=== PATIENT | female | born 1940 | race Caucasian/White ===

== ENCOUNTER 2016-12-04 13:31 | Emergency (ER) | payer MEDICARE, OTHER ==
[~2016-12-04] VITALS: Ht 157.5 cm; Wt 117.9 kg
[~2016-12-04 13:31] MED LIST: ALLOPURINOL300 MG PO; ASACOL400 MG; ASPIRIN EC81 MG PO; ATENOLOL100 MG PO; ATENOLOL25 MG; ATENOLOL25 MG PO; CALCIUM CITRAT250 MG PO; CEPHALEXIN500 MG PO; CIPRODEX OTIC7.5 ML; CITRACAL + D M1 EACH PO; COZAAR100 MG PO; D-20002000 UNIT PO; DOCUSATE SODIU100 MG PO; FUROSEMIDE40 MG PO; GABAPENTIN300 MG PO; GENTAK5 ML; HYDROCODON-ACE1 EA10 PO; LASIX20 MG PO; LASIX40 MG PO; LOVASTATIN10 MG; LOVASTATIN20 MG PO; METFORMIN HCL500 M1 PO; METFORMIN HCL500 MG; MIRALAX17 GM PO; MORPHINE SULFAT15 MG PO; MS CONTIN15 MG PO; NEURONTIN100 MG; NEURONTIN300 MG PO; NORCO 5-325 TA1 EACH PO; NORCO 7.5-3251 EACH; NYSTOP60 GM TOP; OXYBUTYNIN CHLO15 MG PO; OXYBUTYNIN CHLOR5 M1 PO; OXYBUTYNIN CHLOR5 MG PO; OXYTROL1 EACH; POTASSIUM CHLO10 MEQ PO; PROZAC10 MG; PROZAC20 MG PO; REFRESH CLASSI1 EACH OPTH; SENOKOT8.6 MG PO; VITAMIN D1000 UNI1 PO; ZANAFLEX4 MG PO
[2016-12-04] MEDS ORDERED: LASIX20 MG PO (13:46)
[2016-12-04] MEDS ORDERED: NAPROSYN500 MG PO (15:45)
[2017-02-19] MEDS ORDERED: MIRALAX119 GM PO (11:38)
[2017-02-19] MEDS ORDERED: ASPIRIN81 MG PO (11:38)
[2017-02-19] MEDS ORDERED: NYSTATIN1 EAC1 PO (11:39)
== END 2016-12-04 14:01 | disposition home or self-care (01) ==
LOC: ED 13:31
DX: M25.511 Pain in right shoulder (principal); Z00.8 Encounter for other general examination

== ENCOUNTER 2016-12-04 14:37 | Emergency (ER) | payer MEDICARE, OTHER ==
[~2016-12-04] VITALS: Ht 157.5 cm; Wt 117.9 kg
[2016-12-04] MEDS ORDERED: NAPROSYN500 MG PO (15:45)
[2017-02-19] MEDS ORDERED: MIRALAX119 GM PO (11:38)
[2017-02-19] MEDS ORDERED: ASPIRIN81 MG PO (11:38)
[2017-02-19] MEDS ORDERED: NYSTATIN1 EAC1 PO (11:39)
== END 2016-12-04 16:13 | disposition home or self-care (01) ==
LOC: ED 14:37
DX: S43.401A Unspecified sprain of right shoulder joint, initial encounter (principal); D64.9 Anemia, unspecified; I48.91 Unspecified atrial fibrillation; K21.9 Gastro-esophageal reflux disease without esophagitis; Z90.49 Acquired absence of other specified parts of digestive tract; Z90.710 Acquired absence of both cervix and uterus; Z90.89 Acquired absence of other organs; Z88.0 Allergy status to penicillin; Z88.5 Allergy status to narcotic agent; Z88.8 Allergy status to other drugs, medicaments and biological substances; Z88.2 Allergy status to sulfonamides; Z79.82 Long term (current) use of aspirin; Z79.899 Other long term (current) drug therapy; X50.9XXA Other and unspecified overexertion or strenuous movements or postures, initial encounter
CPT/HCPCS: 73030; 99283

== ENCOUNTER 2016-12-21 14:09 | Emergency (ER) | payer MEDICARE, OTHER ==
[~2016-12-21] VITALS: Ht 157.5 cm; Wt 117.9 kg
[~2016-12-21 14:09] MED LIST changes: +NAPROSYN500 MG PO
[2016-12-21] MEDS ORDERED: LEVOFLOXACIN750 MG PO (16:14)
[2017-02-19] MEDS ORDERED: MIRALAX119 GM PO (11:38)
[2017-02-19] MEDS ORDERED: ASPIRIN81 MG PO (11:38)
[2017-02-19] MEDS ORDERED: NYSTATIN1 EAC1 PO (11:39)
== END 2016-12-21 16:40 | disposition home or self-care (01) ==
LOC: ED 14:09
DX: N39.0 Urinary tract infection, site not specified (principal); E87.6 Hypokalemia; D72.819 Decreased white blood cell count, unspecified; D69.6 Thrombocytopenia, unspecified; I48.91 Unspecified atrial fibrillation; D64.9 Anemia, unspecified; K21.9 Gastro-esophageal reflux disease without esophagitis; Z87.442 Personal history of urinary calculi; Z90.49 Acquired absence of other specified parts of digestive tract; Z90.710 Acquired absence of both cervix and uterus; Z90.89 Acquired absence of other organs; Z88.0 Allergy status to penicillin; Z88.5 Allergy status to narcotic agent; Z88.8 Allergy status to other drugs, medicaments and biological substances; Z88.2 Allergy status to sulfonamides; Z88.1 Allergy status to other antibiotic agents; Z79.899 Other long term (current) drug therapy; Z79.82 Long term (current) use of aspirin
CPT/HCPCS: 80053; 83605; 85025; 96374; 96375; 99284; J0696; J2405

== ENCOUNTER 2016-12-23 05:20 | Emergency (ER) | payer MEDICARE, OTHER ==
[~2016-12-23] VITALS: Ht 157.5 cm; Wt 118.1 kg
[~2016-12-23 05:20] MED LIST changes: +LEVOFLOXACIN750 MG PO
[2017-02-19] MEDS ORDERED: ASPIRIN81 MG PO (11:38)
[2017-02-19] MEDS ORDERED: MIRALAX119 GM PO (11:38)
[2017-02-19] MEDS ORDERED: NYSTATIN1 EAC1 PO (11:39)
== END 2016-12-23 09:00 | disposition home or self-care (01) ==
LOC: ED 05:20
DX: N39.0 Urinary tract infection, site not specified (principal); I48.91 Unspecified atrial fibrillation; D64.9 Anemia, unspecified; K21.9 Gastro-esophageal reflux disease without esophagitis; Z85.42 Personal history of malignant neoplasm of other parts of uterus; Z79.2 Long term (current) use of antibiotics; Z88.5 Allergy status to narcotic agent; Z88.8 Allergy status to other drugs, medicaments and biological substances; Z88.1 Allergy status to other antibiotic agents; Z79.899 Other long term (current) drug therapy; Z79.82 Long term (current) use of aspirin; Z87.891 Personal history of nicotine dependence; Z90.49 Acquired absence of other specified parts of digestive tract; Z88.0 Allergy status to penicillin; Z90.710 Acquired absence of both cervix and uterus; Z90.89 Acquired absence of other organs
CPT/HCPCS: 36415; 74176; 80053; 85025; 96360; 96361; 99284; J7030

== ENCOUNTER 2016-12-27 09:21 | Inpatient (IN) | payer MEDICARE, OTHER ==
[~2016-12-27] VITALS: Ht 157.5 cm; Wt 111.0 kg
--- NOTE | 2016-12-27 14:00 | NUR ---
PT ADMITTED VIA STREACHER AT THIS TIME, THREE PERSON TRANSFER, PT YELLED AT STAFF "YOU ARE GRUFF" STAFF DID NOT RESPOND TO PT AT THIS TIME. ADMITT PROCESS COMPLETED AND PT GIVEN WATER TO TAKE MEDICATIONS AND CALL LIGHT WITHIN REACH.
--- NOTE | 2016-12-27 15:00 | NUR ---
URINE SAMPLE SENT TO LAB
--- NOTE | 2016-12-27 15:31 | NUR ---
DR BAIN NOTIFED OF LOW URINE OUTPUT AND NO NEW ORDERS AT THIS TIME.
--- NOTE | 2016-12-27 15:52 | NUR ---
ADMITT PROCESS COMPLETED, PT CONTIOUES TO BE NEEDEY WITH MANY REQUEST EVEN WHEN ASKED "IS THERE ANYTHING I CAN GET BEFORE I LEAVE THE ROOM". PT CURRENT ISSUES IS SHE HAS A SORE THROAT AND WANTD SOMETHING TO SUCK ON. GAVE HARD CANDY AT THIS TIME AND SOME CHAP STICK. PT WAS OKAY WITH THESE ITEMS.
--- NOTE | 2016-12-27 16:19 | EKG ---
[facility] [address] [facility] [place] [address] Signed Sinus rhythm with premature atrial complexes Minimal voltage criteria for LVH, may be normal variant Prolonged QT Abnormal ECG When compared with ECG of 09-APR-2016 16:06, premature atrial complexes are now present AR interval has decreased QT has lengthened Confirmed by FIFI CANDELARIA MD ([id number]) on 12/27/2016 4:19:02 PM Electronically Signed By: FIFI CANDELARIA MD 12/27/16 1619 PATIENT NAME: DORA HILARIO Electrocardiogram DATE OF : 38 PHYSICIAN: FIFI CANDELARIA MD REPORT #: [id number] REPORT IS CONFIDENTIAL AND NOT TO BE RELEASED WITHOUT AUTHORIZATION
--- NOTE | 2016-12-27 16:38 | NUR ---
PT SLEEPING AT THIS TIME, SPO2 91% ON ROOM AIR, PT APPEARS TO BE COMFORTABLE AT THIS TIME. URINE OUTPUT IS LOW DR DOUGLAS NOTIFIED AND NO NEW ORDERS.
--- NOTE | 2016-12-27 16:49 | NUR ---
PT AWAKE AT THIS TIME, ORDERED DINNER AND IS PLANNING ON SLEEPING TILL DINNER COMES. THE SECOND 100MLS OF MAG 3 GRAM IS INFUSING AT THIS TIME. PT IS TOLERATING THIS WELL./
--- NOTE | 2016-12-27 18:29 | NUR ---
PT AT DINNER FAIR THIS EVENING. URINE OUTPUT PICKING UP SOME THIS PAST HOUR. UA SAMPLE SENT TO LAB. PT CONTIOUES TO BE UNHAPPY WITH HOW THE BED IS AND HOW SHE CAN'T MOVE VERY WELL. THEN IN THE NEXT BREATH SHE STATES "I NEED TO HAVE MY SHOULDER INJUCTED TO FEEL BETTER" TWO WARM BLANKETS GIVEN ALSO AT THIS TIME. ALSO PT SISTER CALLED AND IT WAS TRANSFERED INTO THE PT ROOM.
--- NOTE | 2016-12-27 18:51 | NUR ---
PT C/O BEING COLD HEAT IN HER ROOM TURNED UP AND WARM BLAKETS GIVEN TO PT.
--- NOTE | 2016-12-27 19:20 | NUR ---
DR CANDELARIA NOTIFIED OF URINE OUT PUT NO NEW ORDERS AT THIS TIME.
--- NOTE | 2016-12-27 19:35 | NUR ---
PT CALLS TO ASK TO BE CLEANED, HAS A SMALL AMOUNT OF LOOSE STOOL AROUND RECTUM, CLEANED AND ATTENDS PLACED. PT ALERT AND ORIENTED. REPOSITIONED.
--- NOTE | 2016-12-27 20:57 | NUR ---
LAB IN TO DRAW
--- NOTE | 2016-12-27 21:31 | NUR ---
RT IN TO WORK WITH PT WITH IS AND DOROTA
--- NOTE | 2016-12-27 21:49 | NUR ---
CALL TO DR CANDELARIA TO UPDATE REGARDING URINE OUTPUT AND RECENT LAB RESULTS, NO ORDERS AT THIS TIME, WILL CONTINUE TO MONITOR. PT AWAKE AND WATCHING TV IN BED.
--- NOTE | 2016-12-27 23:00 | NUR ---
PT CALLS TO STATE SHE WAS INC STOOL AND NEEDS CLEANING, BUT NO STOOL NOTED. REPOSITIONED UP IN BED, SNACK GIVEN PER REQUEST.
--- NOTE | 2016-12-28 00:44 | NUR ---
PT ASLEEP, AWAKENS EASILY FOR ASESSMENT. DENIES PAIN OR NEEDS AT THIS TIME. PO METOPROLOL GIVEN. PT ASKING ABOUT PLAN FOR THE DAY, QUESTIONS ANSWERED, PT BACK TO SLEEP EASILY. SLEEPING ON HER BACK, SNORING AT TIMES WITH BRIEF PERIODS OF DESATS DOWN TO 85%. WILL CONTINUE TO MONITOR. URINE OUTPUT HAS BEEN ABOUT 15-20 ML/HR FOR THE LAST FIVE HOURS. IVF CONTINUE TO INFUSE AT 150 ML/HR.
--- NOTE | 2016-12-28 02:30 | NUR ---
PT CALLS WITH WANTING TO BE CLEANED UP AGAIN, NO STOOL SEEN. PT REPOSITIONED, BACK TO SLEEP. URINE OUTPUT REMAINS ABOUT 25ML/HR.
--- NOTE | 2016-12-28 03:50 | NUR ---
PT CALLS FOR HELP REPOSITIONING, DENIES NEEDS AT THIS TIME. ASSESSMENT DONE.
--- NOTE | 2016-12-28 05:25 | NUR ---
PT CONTINUES TO SLEEP, HR 60'S.
--- NOTE | 2016-12-28 05:45 | NUR ---
LAB IN TO DRAW
--- NOTE | 2016-12-28 07:52 | NUR ---
PT SLEEPING, AWAKENS TO VOICE, DR. CANDELARIA IN TO ASSESS PT. PT UP TO BSC WITH 2 PERSON ASSIST AND PT USED WALKER TO HELP KEEP PT STABLE. PT HAD LG THICK BROWN STOOL. PT TRANSFERRED TO MAUREEN CHAIR WITH ASSIST BUT UNABLE TO MOVE PT BACK IN CHAIR AND PT UNABLE TO HELP MOVE HERSELF. SLING IN PLACE AND ATTEMPTED TO MOVE PT TOWARD THE BACK OF MAUREEN CHAIR BUT PT STATES BEING UNCOMFORTABLE.
--- NOTE | 2016-12-28 09:05 | NUR ---
INNER TUBE CUTTER HERE TO HELP TRANSFER PT TO WHEEL CHAIR. PT ABLE TO STAND WITH 3 PERON ASSIST AND USED WALKER TO STEADY HERSELF, PT TRANSFERRED TO WHEEL CHAIR WITHOUT PROBLEMS. ASSESSMENT COMPLETED, PT C/O SHOULDER PAIN. WARM BLANKET AROUND SHOULDERS, PT EATING BREAKFAST WITH MINIMAL DIFFICULTY.
--- NOTE | 2016-12-28 10:16 | NUR ---
MED REC COMPLETE
[2016-12-28] MEDS ORDERED: POTASSIUM CHLO10 MEQ PO (10:20)
--- NOTE | 2016-12-28 11:31 | NUR ---
PT RETURNED TO BED WITH 3 PERSON ASSIST. PT USING IS AND VIBRA PEP.
--- NOTE | 2016-12-28 11:57 | NUR ---
DR. CANDELARIA NOTIFIED OF DECREASE IN URINE OUTPUT IVF RUNNING AT 150/HR NOW. PHYSICAL THERAPY HERE TO TALK TO PT JEREMIAH WORKING WITH PT.
--- NOTE | 2016-12-28 12:54 | NUR ---
PT SLEEPING AT THIS TIME, REFUSED LUNCH BUT WILL EAT LATER. ASSESSMENT COMPLETED, PT DENIES PAIN AT THIS TIME, STATES SHOULDERS FEEL BETTER AFTER WARM BLANKETS APPLIED.
--- NOTE | 2016-12-28 14:32 | NUR ---
I/O'S COMPLETED. PT REMAINS ASLEEP WITH REU, SATS 95% ON RA.
--- NOTE | 2016-12-28 15:23 | NUR ---
PT AWAKE, UP TO WHEEL CHAIR WITH 3 PERSON ASSIST. PT ATE APPROX 40% OF LUNCH. RESTING IN WHEEL CHAIR WATCHING TV.
--- NOTE | 2016-12-28 16:55 | NUR ---
PT STATES "I THINK MY BOWELS MOVED". PT INCONT OF LIQ STOOL, MOVED WHEEL CHAIR TO BATHROOM AND PT STOOD WHILE STEADYING SELF WITH BARS ON THE WALL. WHEEL CHAIR CLEANED AND CHUX REPLACED, PT RETURNED TO WHEEL CHAIR AND IS WATCHING TV, REQUESTING MORE DIET COLA.
--- NOTE | 2016-12-28 18:01 | NUR ---
PT RETURNED TO BED WITH 2 PERSON ASSIST, RESTING WITH HOB ELEVATED. NO C/O AT THIS TIME.
--- NOTE | 2016-12-28 20:34 | NUR ---
PT'S UO MARGINAL, SPORADIC PER DAY SHIFT, PHYSICIAN AWARE PER REPORT. UO 40 ML IN ONE HOUR.
--- NOTE | 2016-12-29 02:40 | NUR ---
PT'S UO MARGINAL, DR. CANDELARIA ALERTED ON DAY SHIFT.
--- NOTE | 2016-12-29 08:06 | NUR ---
DR. CANDELARIA IN TO ASSESS PT AND TALK TO PT CONCERNING HER PLAN OF CARE.
--- NOTE | 2016-12-29 11:17 | NUR ---
PT ATE 100% OF BREAKFAST WHILE UP IN WHEEL CHAIR. PT RESTING WITH EYES CLOSED. AWAKENS TO VOICE AND DC INSTRUCTIONS GIVEN, PT STATES UNDERSTANDING. PT WILL CALL DR. YOUNG'S OFFICE ON FRIDAY TO MAKE FOLLOW UP APPT.
[2017-02-19] MEDS ORDERED: ASPIRIN81 MG PO (11:38)
[2017-02-19] MEDS ORDERED: MIRALAX119 GM PO (11:38)
[2017-02-19] MEDS ORDERED: NYSTATIN1 EAC1 PO (11:39)
== END 2016-12-29 12:50 | disposition home or self-care (01) | DRG 682 ==
LOC: ED 09:21 → CCU 13:35
PROVIDERS: ADMIT Internal Medicine
DX: N17.9 Acute kidney failure, unspecified (principal); G93.41 Metabolic encephalopathy; E87.2 Acidosis; D61.818 Other pancytopenia; Z68.42 Body mass index [BMI] 45.0-49.9, adult; E86.0 Dehydration; I48.0 Paroxysmal atrial fibrillation; E11.9 Type 2 diabetes mellitus without complications; D69.6 Thrombocytopenia, unspecified; G89.29 Other chronic pain; E87.5 Hyperkalemia; E78.5 Hyperlipidemia, unspecified; E87.6 Hypokalemia; B37.9 Candidiasis, unspecified; I12.9 Hypertensive chronic kidney disease with stage 1 through stage 4 chronic kidney disease, or unspecified chronic kidney disease; N18.3 Chronic kidney disease, stage 3 (moderate); K74.69 Other cirrhosis of liver; E83.42 Hypomagnesemia; E83.51 Hypocalcemia; N30.90 Cystitis, unspecified without hematuria; F39 Unspecified mood [affective] disorder; K75.81 Nonalcoholic steatohepatitis (NASH); E66.01 Morbid (severe) obesity due to excess calories; Z86.718 Personal history of other venous thrombosis and embolism; Z79.82 Long term (current) use of aspirin; Z88.0 Allergy status to penicillin; Z88.6 Allergy status to analgesic agent; Z87.891 Personal history of nicotine dependence; Z85.42 Personal history of malignant neoplasm of other parts of uterus
CPT/HCPCS: 36415; 74022; 80048; 80053; 81001; 81256; 82140; 82306; 82570; 83605; 83690; 83735; 84300; 84484; 84540; 85025; 86704; 86706; 86709; 86803; 87340; 93005; 93010; 94668; 94761; 97163; J0696; J2405; J2550; J3475; J7120

== ENCOUNTER 2017-02-05 10:59 | Day surgery (SDC) | payer MEDICARE, OTHER ==
[~2017-02-05] VITALS: Ht 157.5 cm; Wt 113.4 kg
--- NOTE | 2017-02-05 13:20 | NUR ---
02/05/17 1320 Saira Bauman 1257 O2 DECREASED TO 2L, PT O2 SAT 100%. 1311 PT O2 SAT 100%, O2 REMOVED.
--- NOTE | 2017-02-07 10:53 | OR ---
[facility] [address] [place] [address] Signed DATE OF OPERATION: 02/05/2017 SURGEON: Trinity Grace MD PROCEDURE: Right posterior iliac crest bone marrow biopsy and aspirate. DESCRIPTION OF PROCEDURE: After explaining the risks and benefits of bone marrow biopsy and aspirate under conscious sedation and obtaining informed written consent, the patient was taken to the endoscopy suite, where a time-out was taken and the patient and the procedure were correctly identified. She was placed in the left lateral decubitus position. Conscious sedation was supplied by JOSUÉ Bermudez, with 100 mcg of intravenous fentanyl and 3 mg of intravenous Versed. The right posterior iliac crest was prepped and draped in the usual sterile manner and a right posterior iliac crest bone marrow biopsy and aspirate were obtained without adverse effects. Trinity Grace MD RCQ/MODL /[id number] cc: Benjamín Cristina MD Electronically Signed By: TRINITY GRACE MD 02/07/17 1053 PATIENT NAME: DORA HILARIO OPERATIVE REPORT DATE OF : 38 PHYSICIAN: TRINITY GRACE MD REPORT #: [id number] REPORT IS CONFIDENTIAL AND NOT TO BE RELEASED WITHOUT AUTHORIZATION
[2017-02-19] MEDS ORDERED: MIRALAX119 GM PO (11:38)
[2017-02-19] MEDS ORDERED: ASPIRIN81 MG PO (11:38)
[2017-02-19] MEDS ORDERED: NYSTATIN1 EAC1 PO (11:39)
== END 2017-02-05 13:44 | disposition home or self-care (01) ==
LOC: OPS 10:59 → DS 10:59 → OPS 12:00
PROVIDERS: Specialist
PROC: 07DR3ZX Extraction of Iliac Bone Marrow, Percutaneous Approach, Diagnostic (ICD-10-PCS; principal; 2017-02-05 12:00)
DX: D61.818 Other pancytopenia (principal); I12.9 Hypertensive chronic kidney disease with stage 1 through stage 4 chronic kidney disease, or unspecified chronic kidney disease; N18.3 Chronic kidney disease, stage 3 (moderate); E66.01 Morbid (severe) obesity due to excess calories; F32.9 Major depressive disorder, single episode, unspecified; F41.9 Anxiety disorder, unspecified; E78.5 Hyperlipidemia, unspecified; I25.10 Atherosclerotic heart disease of native coronary artery without angina pectoris; R32 Unspecified urinary incontinence; Z68.41 Body mass index [BMI] 40.0-44.9, adult; Z90.49 Acquired absence of other specified parts of digestive tract; Z96.651 Presence of right artificial knee joint; Z98.890 Other specified postprocedural states; Z87.891 Personal history of nicotine dependence; Z88.0 Allergy status to penicillin; Z88.1 Allergy status to other antibiotic agents; Z88.8 Allergy status to other drugs, medicaments and biological substances; Z79.899 Other long term (current) drug therapy
CPT/HCPCS: 36415; 82607; 82728; 82746; 83540; 84238; 84466; 85025; 99152; 99153; J2250; J3010; J7040

== ENCOUNTER 2017-10-14 00:03 | Emergency (ER) | payer MEDICARE, OTHER ==
[~2017-10-14] VITALS: Ht 157.5 cm; Wt 117.5 kg
[~2017-10-14 00:03] MED LIST changes: +ASPIRIN81 MG PO; +MIRALAX119 GM PO; +NYSTATIN1 EAC1 PO
[2017-10-14] MEDS ORDERED: SPIRONOLACTONE25 MG PO ×2 (18:30)
[2017-10-14] MEDS ORDERED: MAG-OXIDE400 MG PO ×2 (18:32)
[2017-10-14] MEDS ORDERED: CHOLESTYRAMINE P4 GM PO ×2 (18:34)
[2017-10-14] MEDS ORDERED: FOLIC ACID1 MG PO ×2 (18:36)
[2017-10-14] MEDS ORDERED: ATENOLOL50 MG PO ×2 (18:37)
[2017-10-14] MEDS ORDERED: OYSTER SHELL C500 MG PO ×2 (18:38)
[2017-10-14] MEDS ORDERED: FLUTICASONE PRO16 GM NAS (18:39)
[2017-10-14] MEDS ORDERED: KETOCONAZOLE15 GM TOP ×2 (19:18)
--- NOTE | 2017-10-14 20:26 | EKG ---
[facility] [address] [facility] [place] [address] Signed Sinus rhythm with sinus arrhythmia with 1st degree AV block Cannot rule out Anterior infarct , age undetermined Abnormal ECG When compared with ECG of 27-DEC-2016 11:14, premature atrial complexes are no longer present [place] interval has increased QT has shortened Confirmed by TINA BAIN MD ([id number]) on 10/14/2017 8:26:06 PM Electronically Signed By: TINA BAIN MD 10/14/172025 PATIENT NAME: DORA HILARIO Electrocardiogram DATE OF : 38 PHYSICIAN: TINA BAIN MD REPORT #: [id number] REPORT IS CONFIDENTIAL AND NOT TO BE RELEASED WITHOUT AUTHORIZATION
[2017-10-15] MEDS ORDERED: LASIX20 MG PO ×4 (13:42→13:50)
[2017-10-15] MEDS ORDERED: MAG-OXIDE400 MG PO ×2 (13:43)
[2017-10-15] MEDS ORDERED: D-20002000 UNIT PO ×2 (13:46)
[2017-10-15] MEDS ORDERED: NYSTATIN15 G2 TOP ×2 (13:47)
[2017-10-15] MEDS ORDERED: MIRALAX17 GM PO ×2 (13:48)
[2017-10-15] MEDS ORDERED: CALCI-CHEW500 MG PO ×2 (13:48)
[2017-10-15] MEDS ORDERED: B-121000 MC2 PO ×2 (13:49)
== END 2017-10-14 02:30 | disposition home or self-care (01) ==
LOC: ED 00:03
DX: M25.512 Pain in left shoulder (principal); D64.9 Anemia, unspecified; I48.91 Unspecified atrial fibrillation; K21.9 Gastro-esophageal reflux disease without esophagitis; Z87.891 Personal history of nicotine dependence; Z88.0 Allergy status to penicillin; Z88.5 Allergy status to narcotic agent; Z88.8 Allergy status to other drugs, medicaments and biological substances; Z88.2 Allergy status to sulfonamides; Z88.1 Allergy status to other antibiotic agents; Z79.899 Other long term (current) drug therapy
CPT/HCPCS: 71045; 73030; 80053; 83735; 84484; 85025; 85610; 85730; 93005; 93010; 99284

== ENCOUNTER 2017-10-14 09:44 | Observation (INO) | payer MEDICARE, OTHER ==
[~2017-10-14] VITALS: Ht 157.5 cm; Wt 109.9 kg
--- NOTE | 2017-10-14 10:57 | NUR ---
PT IS A DIRECT ADMIT FROM HOME PER DR. BAIN. ASSESSMENT COMPLETED AND IV SALINE LOCKED PLACED. DR BAIN INTO SEE PT AT THIS TIME.
--- NOTE | 2017-10-14 11:16 | NUR ---
THIS SUPERINTENDENT HOUSE SAT PATIENT UP IN BED, ICE WATER GIVEN, CALL LIGHT IN REACH
--- NOTE | 2017-10-14 13:10 | NUR ---
2 PERSON ASSIST RFOM COMMODE TO BED WITH JOSUÉ IBANEZ. PATIENT WAS VERY UNSTEADY ON HER FEET, COULD PROBABLY USE 3 PERSON ASSIST. CALL LIGHT IN REACH
--- NOTE | 2017-10-14 13:19 | NUR ---
pt up to bedside commode, voided about 100mls, sample sent to lab also . PT IS A TWO PERSON MAX ASSISTANCE WITH ACTIVITY.
--- NOTE | 2017-10-14 13:57 | NUR ---
VITALS AND I/OS CHARTED. WARM BLANKET GIVEN CALL LIGHT IN REACH
--- NOTE | 2017-10-14 14:16 | NUR ---
ASPERCREAM APPLIED TO LEFT SHPULD TO ELBOW. PT LYING IN BED WATCHING TV. TALKED WITH [facility]URS[facility] AND ONE OF THEM WILL COME IN ON FRIDAY TO LOOK AT HER AND SEE WHAT WE CAN DO WITH PT SKIN TEARS AND BRUSING, SCABS.
--- NOTE | 2017-10-14 15:01 | NUR ---
WARM BLANKET GIVEN AND THIS TURNED PATIENTS ROOM TEMP UP A BIT PER PATIENTS REQUEST CALL LIGHT IN REACH
--- NOTE | 2017-10-14 16:55 | NUR ---
PT IS SLEEPING IN THE BED AT THIS TIME. IV INFUSING AT THIS TIME.
--- NOTE | 2017-10-14 17:41 | NUR ---
VITALS AND I/OS CHARTED. CALL LIGHT IN REACH
--- NOTE | 2017-10-14 17:52 | NUR ---
WAI CHANGED. CALLLIGHT IN [facility]. LAB IN FOR BLOOD DRAW
--- NOTE | 2017-10-14 18:04 | NUR ---
pt finished with dinner lab present for sample to be obtained and was completed. pt was incontent of urine, complete line change also at this time. bed in low position, call light within reach and two side rails up.
[2017-10-14] MEDS ORDERED: SPIRONOLACTONE25 MG PO ×2 (18:30)
[2017-10-14] MEDS ORDERED: MAG-OXIDE400 MG PO ×2 (18:32)
[2017-10-14] MEDS ORDERED: CHOLESTYRAMINE P4 GM PO ×2 (18:34)
[2017-10-14] MEDS ORDERED: FOLIC ACID1 MG PO ×2 (18:36)
[2017-10-14] MEDS ORDERED: ATENOLOL50 MG PO ×2 (18:37)
[2017-10-14] MEDS ORDERED: OYSTER SHELL C500 MG PO ×2 (18:38)
[2017-10-14] MEDS ORDERED: FLUTICASONE PRO16 GM NAS (18:39)
--- NOTE | 2017-10-14 18:42 | NUR ---
PT REMAINS IN BED, WATCHING TV, CALL LIGHT WITHIN REACH AND HAS THREE WARM BLANKETS. ALSO ROOM TEMP INCREASED TO 75. PT RECEIVED PHONE CALL AND PHONE HANDED TO PT.
--- NOTE | 2017-10-14 19:02 | NUR ---
MED REC COMPLETE
--- NOTE | 2017-10-14 19:10 | NUR ---
IN ROOM FOR REPORT, PT IS AWAKE IN BED READING A BOOK. SHE DENIES NEEDS AT THIS TIME. CALL LIGHT IS WITHIN REACH.
[2017-10-14] MEDS ORDERED: KETOCONAZOLE15 GM TOP ×2 (19:18)
--- NOTE | 2017-10-14 20:55 | NUR ---
IN ROOM TO ADMINISTER MEDS AND ASSESS PT. PT STATES SHE IS USED TO CHRONIC PAIN AND HAS PAIN IN HER SHOULDER. APPLIED ASPERCREM TO SHOULDER AND ARM. SHE HAS FRESH WATER AT BEDSIDE. PT DENIES FURTHER NEEDS.
--- NOTE | 2017-10-14 22:31 | NUR ---
PT IS RESTING WITH EYES CLOSED, RESPIRATIONS ARE EVEN AND NONLABORED. CALL LIGHT IS WITHIN REACH.
--- NOTE | 2017-10-14 23:30 | NUR ---
PT CALLED ABOUT SHOULDER PAIN, GAVE HER A HEAT PACK TO TRY. SHE DENIES FURTHER NEEDS AT THIS TIME.
--- NOTE | 2017-10-15 01:15 | NUR ---
PT IS RESTING WITH EYES CLOSED, RESPIRATIONS ARE EVEN AND NONLABORED.
--- NOTE | 2017-10-15 02:32 | NUR ---
WOKE PT TO CHANGE ATTENDS. SHE COMPLAINS THAT HER PAIN IS WORSE NOW. ADMINISTERED ASPERCREME AND REPOSITIONED PT. PT DENIES FURTHER NEEDS. CALL LIGHT IS WITHIN REACH.
--- NOTE | 2017-10-15 04:15 | NUR ---
PT IS RESTING WITH EYES CLOSED, RESPIRATIONS ARE EVEN AND NONLABORED. CALL LIGHT IS WITHIN REACH.
--- NOTE | 2017-10-15 05:00 | NUR ---
PT IS RESTING WITH EYES CLOSED, RESPIRATIONS ARE EVEN AND NONLABORED. CALL LIGHT IS WITHIN REACH.
--- NOTE | 2017-10-15 05:29 | NUR ---
PT IN ON A CARDIAC DIET. SHE WAS INCONTINENT IN THE BED AND HAS ATTENDS IN PLACE. SHE IS A STEFFEN LIFT AND USES A WHEELCHAIR AT [facility] WHERE SHE LIVES. HER IV FLUID RATE WAS CHANGED FROM 100MLS TO 125MLS/HR. SHE HAS MULTIPLE AREAS OF BRUISING AND SKIN BREAKDOWN. THERE IS A WOUND CONSULT ORDERED.
--- NOTE | 2017-10-15 06:08 | NUR ---
CHANGED PT'S ATTENDS AND BROUGHT HER A NEW WARM PACK TO HELP WITH SHOULDER PAIN. PT REQUESTED NOT TO BE BOTHERED AT SHIFT CHANGE AND DOES NOT WANT BREAKFAST EARLY, KITCHEN WAS NOTIFIED. PT DENIES FURTHER NEEDS.
--- NOTE | 2017-10-15 08:21 | NUR ---
PATIENT RESTING IN BED AT THIS TIME, RN REQUESTS THAT PATIENT IS NOT AWOKEN OR BOTHERED. CALL LIGHT IN REACH. NO OTHER NEEDS AT THIS TIME.
--- NOTE | 2017-10-15 10:26 | NUR ---
PATIENT RESTING IN BED, THIS TURN SEWER AND RN ASSISTED TO CHANGE PATIENT'S ATTENDS. PATIENT HAD LARGE URINARY INCONTINENCE, PERICARE AND SKINCARE PERFORMED. PATIENT GIVEN BED BATH. CALL LIGHT IN REACH. NO OTHER NEEDS AT THIS TIME.
--- NOTE | 2017-10-15 11:05 | NUR ---
NOTIFIED PROVIDER OF HR 55, HELD BETA TALISHA, PROVIDER STATED DRUG SHOULD BE GIVEN DUE TO AFIB, ADMINISTERED PER ORDERS, WILL CONTINUE TO MONITOR. GIVEN PT BED BATH WITH X3 ASSIST, PT INCONTINENT OF BOWEL AND BLADDER. MINIMAL DRAINAGE TO DRESSINGS ON LEFT UPPER EXTREMETY.
--- NOTE | 2017-10-15 12:05 | NUR ---
PT RESTING IN BED, PT STATES THAT THE ASPERCREME WAS HELPFUL IN MANAGING HER PAIN TO HER RIGHT SHOULDER. PROVIDED ADDITIONAL BLANKETS. PT RESTING COMFORTABLY IN BED. WILL CONTINUE TO MONITOR.
--- NOTE | 2017-10-15 13:10 | NUR ---
LE 1230: ORDER FOR WOUND CONSULT RECEIVED. PATIENT IS FOUND LAYING IN BED AND IS NOTED TO HAVE MULTIPLE PURPLE BRUISES THROUGHOUT HER BODY. PATIENT REPORTS THAT "EVERYTHING BRUISES ME". PATIENT ALSO REPORTS HER RIGHT POSTERIOR THIGH AND LEFT ELBOW ARE THE AREAS WHERE WOUNDS EXIST AND SHE IS CONCERNED. PATIENT REPORTS IF SHE BUMPS HER SKIN AT ALL, IT RESULTS IN A BRUISE. RIGHT POSTERIOR THIGH IS NOTED TO HAVE DRY GAUZE AND TAPE COVERING A DARK SPOT. THE SPOT APPEARS IN TACT AND NO DRAINAGE IS NOTED. DRESSING IS CAREFULLY REMOVED AND PATIENT REPORTS AN INCREASE IN PAIN WITH THE DRESSING REMOVAL. LEFT ELBOW IS NOTED TO CONTAIN 2 BANDAIDS. BANDAIDS ARE CAREFULLY REMOVED AND THERE APPEARS TO BE 2 HEALED NON-DRAINING SKIN TEARS UNDER THE BANDAIDS. NO DRESSING APPLICATION IS RECOMMENDED AT THIS TIME GIVEN THE HEALED NATURE OF THE WOUNDS. IN THE EVENT THE RIGHT POSTERIOR THIGH WOUND BEGINS TO DRAIN AGAIN, AN ALLEVYN DRESSING APPLICATION IS RECOMMENDED. CALL LIGHT IS W/IN REACH. PATIENT IS ON THE PHONE WHEN I EXIT THE ROOM.
[2017-10-15] MEDS ORDERED: LASIX20 MG PO ×4 (13:42→13:50)
[2017-10-15] MEDS ORDERED: MAG-OXIDE400 MG PO ×2 (13:43)
[2017-10-15] MEDS ORDERED: D-20002000 UNIT PO ×2 (13:46)
[2017-10-15] MEDS ORDERED: NYSTATIN15 G2 TOP ×2 (13:47)
[2017-10-15] MEDS ORDERED: CALCI-CHEW500 MG PO ×2 (13:48)
[2017-10-15] MEDS ORDERED: MIRALAX17 GM PO ×2 (13:48)
[2017-10-15] MEDS ORDERED: B-121000 MC2 PO ×2 (13:49)
== END 2017-10-15 14:44 | disposition home or self-care (01) ==
LOC: MS 09:44
PROVIDERS: ADMIT Internal Medicine
DX: N17.9 Acute kidney failure, unspecified (principal); N18.3 Chronic kidney disease, stage 3 (moderate); E87.5 Hyperkalemia; E83.42 Hypomagnesemia; T50.1X5A Adverse effect of loop [high-ceiling] diuretics, initial encounter; K74.60 Unspecified cirrhosis of liver; K76.0 Fatty (change of) liver, not elsewhere classified; E53.8 Deficiency of other specified B group vitamins; F41.8 Other specified anxiety disorders; I48.0 Paroxysmal atrial fibrillation; M54.9 Dorsalgia, unspecified; G89.29 Other chronic pain; E79.0 Hyperuricemia without signs of inflammatory arthritis and tophaceous disease; E78.5 Hyperlipidemia, unspecified; E66.01 Morbid (severe) obesity due to excess calories; Z68.41 Body mass index [BMI] 40.0-44.9, adult; Z66 Do not resuscitate; Z79.899 Other long term (current) drug therapy; Z88.1 Allergy status to other antibiotic agents; Z88.5 Allergy status to narcotic agent; Z88.0 Allergy status to penicillin; Z88.2 Allergy status to sulfonamides; Z88.8 Allergy status to other drugs, medicaments and biological substances
CPT/HCPCS: 36415; 80069; 82570; 83735; 84300; 84540; 96361; 96365; 96366; 99211; G0378; G0379; J3475; J7030

== ENCOUNTER 2017-12-03 17:04 | Inpatient (IN) | payer MEDICARE, OTHER ==
[~2017-12-03] VITALS: Ht 154.9 cm; Wt 102.1 kg
--- OUTSIDE RECORDS SUMMARY | ~2017-12-03 | XMS | Clinical Summary ---
Demographics + + + | Address | [address] | | | [place] [address] | + + + | Home Phone | | + + + | Preferred Language | Unknown | + + + | Marital Status | Single | + + + | Moravian Affiliation | [id number] | + + + | Race | Unknown | + + + | Ethnic Group | Unknown | + + + Author + + + | Author | [facility] | | | and [place] | + + + | Organization | [facility] | | | and [place] | + + + | Address | Unknown | + + + | Phone | Unavailable | + + + Support + + + + + | Name | Relationship | Address | Phone | + + + + + | Tesha Kilgore | ECON | [place] | | | | | [address] | | + + + + + | Elizabeth Lenz | ECON | NA | | | | | NA, | | + + + + + Care Team Providers + +------+ + | Care Fashion Artist Name | Role | Phone | + +------+ + | Benjamín Cristina MD | PP | | + +------+ + Allergies + + + + + + | Active Allergy | Reactions | Severity | Noted | Comments | | | | | Date | | + + + + + + | Aspirin | Nausea And Vomiting | Medium | 08/19/19 | | | | | | 13 | | + + + + + + | Doxycycline Calcium | Other (See Comments) | High | 08/19/19 | Mouth hurts and | | | | | 13 | becomes very sore. | | | | | | Cannot eat or drink | | | | | | with out mouth | | | | | | hurting. | + + + + + + | Doxycycline Hyclate | | | | | + + + + + + | Hydromorphone Hcl | | | | | + + + + + + | Lisinopril | | | | | + + + + + + | Oxycodone-Aspirin | | | | | + + + + + + | Penicillin V | | | | | | Potassium | | | | | + + + + + + | Pentazocine | | | | | + + + + + + | Sulfamethoxazole | | | | | | W/Trimethoprim | | | | | | (Co-Trimoxazole) | | | | | + + + + + + Current Medications + + +--------+---------+------+------+-------+ | Prescription | Sig. | Disp. | Refills | Star | End | Statu | | | | | | t | Date | s | | | | | | Date | | | + + +--------+---------+------+------+-------+ | Cholecalciferol | Take 2,000 Units by | | | 12/06 | | Activ | | (VITAMIN D) 2000 | mouth Daily. | | | 07/25 | | e | | UNITS CAPS | | | | 12 | | | + + +--------+---------+------+------+-------+ | gabapentin | Take 300 mg by mouth | | | 12/06 | | Activ | | (NEURONTIN) 300 mg | 2 times daily. | | | 07/25 | | e | | capsule | | | | 12 | | | + + +--------+---------+------+------+-------+ | metFORMIN | | | | 12/06 | | Activ | | (GLUCOPHAGE) 500 mg | | | | 07/25 | | e | | tablet | | | | 12 | | | + + +--------+---------+------+------+-------+ | losartan (COZAAR) | Take 100 mg by mouth | | | 12/06 | | Activ | | 100 MG tablet | Daily. | | | 07/25 | | e | | | | | | 12 | | | + + +--------+---------+------+------+-------+ | aspirin (ADULT | Take 81 mg by mouth | | | 12/06 | | Activ | | ASPIRIN EC LOW | Daily. | | | 07/25 | | e | | STRENGTH) 81 MG EC | | | | 12 | | | | tablet | | | | | | | + + +--------+---------+------+------+-------+ | FLUoxetine | Take 20 mg by mouth | | | 12/06 | | Activ | | (PROZAC) 20 mg | Daily. | | | 07/25 | | e | | capsule | | | | 12 | | | + + +--------+---------+------+------+-------+ | glucose blood | by In Vitro route 4 | | | | | Activ | | test strips (ONE | times daily. | | | | | e | | TOUCH TEST STRIPS) | | | | | | | | strip | | | | | | | + + +--------+---------+------+------+-------+ | atenolol | Take 25 mg by mouth | | | | | Activ | | (TENORMIN) 25 mg | Daily. | | | | | e | | tablet | | | | | | | + + +--------+---------+------+------+-------+ | oxybutynin | Take 5 mg by mouth 3 | | | | | Activ | | (DITROPAN) 5 mg | times daily. | | | | | e | | tablet | | | | | | | + + +--------+---------+------+------+-------+ | lovastatin | Take 20 mg by mouth | | | 12/06 | | Activ | | (MEVACOR) 20 mg | Daily. | | | 07/25 | | e | | tablet | | | | 12 | | | + + +--------+---------+------+------+-------+ | | Take 1 tablet by | | | | | Activ | | HYDROcodone-acetamin | mouth every 4 hours | | | | | e | | ophen (NORCO) | as needed. | | | | | | | 7.5-325 mg per | | | | | | | | tablet | | | | | | | + + +--------+---------+------+------+-------+ | morphine (MSIR) 15 | Take 1 tablet by | 90 | 0 | 10/0 | | Activ | | mg tablet | mouth every 4 hours | tablet | | 20 | | e | | | as needed. | | | 13 | | | + + +--------+---------+------+------+-------+ | furosemide (LASIX) | | | | 10/1 | | Activ | | 20 mg tablet | | | | 4/20 | | e | | | | | | 13 | | | + + +--------+---------+------+------+-------+ | allopurinol | Take 300 mg by mouth | | | | | Activ | | (ZYLOPRIM) 300 mg | nightly. | | | | | e | | tablet | | | | | | | + + +--------+---------+------+------+-------+ | POLYETHYLENE | by Does not apply | | | | | Activ | | GLYCOL 3350 | route Daily. | | | | | e | + + +--------+---------+------+------+-------+ | docusate-senna | Take 1 tablet by | | | | | Activ | | (SENOKOT-S) 50-8.6 | mouth Daily. | | | | | e | | mg per tablet | | | | | | | + + +--------+---------+------+------+-------+ | docusate sodium | Take 100 mg by mouth | | | | | Activ | | (COLACE) 100 mg | 2 times daily. | | | | | e | | capsule | | | | | | | + + +--------+---------+------+------+-------+ | insulin aspart | Inject under the | | | | | Activ | | (NOVOLOG) 100 | skin 3 times daily | | | | | e | | units/mL injection | (before meals). | | | | | | + + +--------+---------+------+------+-------+ | morphine (MS | Take 15 mg by mouth | | | | | Activ | | CONTIN) 15 mg ER | 2 times daily. | | | | | e | | tablet | | | | | | | + + +--------+---------+------+------+-------+ | acetaminophen | Take 650 mg by mouth | | | | | Activ | | (TYLENOL) 325 mg | as needed. | | | | | e | | tablet | | | | | | | + + +--------+---------+------+------+-------+ | diphenhydrAMINE | Take 12.5 mg by | | | | | Activ | | (BENADRYL) 12.5 mg | mouth as needed. | | | | | e | | TABS | | | | | | | + + +--------+---------+------+------+-------+ | menthol (HALLS) | Place 1 lozenge | | | | | Activ | | lozenge | inside cheek as | | | | | e | | | needed. | | | | | | + + +--------+---------+------+------+-------+ | Glucagon, rDNA, | Inject as directed | | | | | Activ | | (GLUCAGON EMERGENCY | as needed. | | | | | e | | IJ) | | | | | | | + + +--------+---------+------+------+-------+ | lactulose 10 g/15 | Take 20 g by mouth | | | | | Activ | | mL solution | as needed. | | | | | e | + + +--------+---------+------+------+-------+ | Calcium & | Take by mouth as | | | | | Activ | | Magnesium Carbonates | needed. | | | | | e | | (MYLANTA PO) | | | | | | | + + +--------+---------+------+------+-------+ | tiZANidine | Take 4 mg by mouth | | | | | Activ | | (ZANAFLEX) 4 mg | every 6 hours as | | | | | e | | tablet | needed. | | | | | | + + +--------+---------+------+------+-------+ Active Problems + + + | Problem | Noted Date | + + + | Neurogenic claudication due to lumbar spinal stenosis | 04/21/2013 | + + + | SPINAL STENOSIS, LUMBAR | 11/14/2011 | + + + | MORBID OBESITY | 11/14/2011 | + + + | THORACIC/LUMBOSACRAL NEURITIS/RADICULITIS UNSPEC | 11/14/2011 | + + + | DIABETIC PERIPHERAL NEUROPATHY | 11/14/2011 | + + + | CONTUSION, KNEE | | + + + | ARTHRITIS, KNEES, BILATERAL | | + + + | FOOT SPRAIN | | + + + | SACROILIITIS | | + + + | KNEE PAIN | | + + + | BACK PAIN, LUMBAR | | + + + | OSTEOARTHRITIS, LUMBOSACRAL SPINE | | + + + | TOTAL KNEE REPLACEMENT, RIGHT, HX OF | | + + + | Sleep apnea | | + + + | History of frequent urinary tract infections | | + + + | Kidney insufficiency | | + + + | Diabetes mellitus (HCC) | | + + + | High cholesterol | | + + + | High blood pressure | | + + + Resolved Problems + + + + | Problem | Noted | Resolved | | | Date | Date | + + + + | Wound infection after surgery | 03/10/20 | | | | 13 | 4 | + + + + | SPONDYLOLISTHESIS | 11/14/19 | | | | 12 | 4 | + + + + Family History + + +------+ + | Medical History | Relation | Name | Comments | + + +------+ + | Heart defect | Father | | | + + +------+ + | Diabetes | Maternal | | | | | Aunt | | | + + +------+ + | Heart defect | Maternal | | | | | Grandfath | | | | | er | | | + + +------+ + | Heart defect | Maternal | | | | | Grandmoth | | | | | er | | | + + +------+ + | Stroke | Maternal | | | | | Grandmoth | | | | | er | | | + + +------+ + | Arthritis | Mother | | | + + +------+ + | Heart defect | Mother | | | + + +------+ + | High blood pressure | Mother | | | + + +------+ + + +------+ + + | Relation | Name | Status | Comments | + +------+ + + | Father | | | Massive Heart Attack | | | | (Age | | | | | 42) | | + +------+ + + | Maternal Aunt | | | | + +------+ + + | Maternal Grandfather | | | | + +------+ + + | Maternal Grandmother | | | | + +------+ + + | Mother | | | Chest pain | | | | (Age | | | | | 95) | | + +------+ + + Social History + +-------+ +--------+ + | Tobacco Use | Types | Packs/Day | Years | Date | | | | | Used | | + +-------+ +--------+ + | Former Smoker | | | | Quit: 04/07/1969 | + +-------+ +--------+ + + +---+---+---+ | Smokeless Tobacco: | | | | | Never Used | | | | + +---+---+---+ + + +---------+ + | Alcohol Use | Drinks/We | oz/Week | Comments | | | ek | | | + + +---------+ + | Yes | | | Rarely | + + +---------+ + + + + | Sex Assigned at | Date Recorded | | | | + + + | Not on file | | + + + Last Filed Vital Signs + + + + | Vital Sign | Reading | Time Taken | + + + + | Blood Pressure | 118/78 | 01/26/20141258 PDT | + + + + | Pulse | 60 | 01/26/20141258 PDT | + + + + | Temperature | - | - | + + + + | Respiratory Rate | 18 | 01/26/20141258 PDT | + + + + | Oxygen Saturation | - | - | + + + + | Inhaled Oxygen | - | - | | Concentration | | | + + + + | Weight | 111.9 kg (246 lb | 01/26/20141258 PDT | | | 12.8 oz) | | + + + + | Height | 158.8 cm (5' 2.5") | 01/26/20141258 PDT | + + + + | Body Mass Index | 44.42 | 01/26/20141258 PDT | + + + + Plan of Treatment + + + + + | Health Maintenance | Due Date | Last Done | Comments | + + + + + | Diabetic Eye Exam | | | | | (Bi-Annually) | 8 | | | + + + + + | Diabetic Foot Exam | | | | | | 8 | | | + + + + + | Hemoglobin A1c Q3 | | | | | Months | 8 | | | + + + + + | Vaccine: | | | | | Dtap/Tdap/Td (1 - | 9 | | | | Tdap) | | | | + + + + + | Vaccine: Zoster (1 | | | | | of 2) | 0 | | | + + + + + | Vaccine: | | | | | Pneumococcal 65+ | 5 | | | | Low/Medium Risk (1 | | | | | of 2 - PCV13) | | | | + + + + + | Vaccine: Influenza | | | | | (#1) | 8 | | | + + + + + Results Not on filefrom Last 3 Months Insurance + +--------+ +--------+ +---------+ | Payer | Benefi | Subscriber | Type | Phone | Address | | | t Plan | ID | | | | | | / | | | | | | | Group | | | | | + +--------+ +--------+ +---------+ | MEDICARE | MEDICA | [id number] | Medica | [phone] | | | | RE | | re | [phone] | | | | PART A | | | | | | | AND B | | | | | + +--------+ +--------+ +---------+ | [employer] [place] | UNITED | [id number] | Indemn | [phone] | | | OF | | ity | 1000 | | | | [place] | | | | | | | MDCR | | | | | | | SUPPL | | | | | + +--------+ +--------+ +---------+ + +--------+ +--------+ + + | Guarantor Name | Accoun | Relation to | Date | Phone | Billing Address | | | t Type | Patient | of | | | | | | | | | | + +--------+ +--------+ + + | DORA LUQUE | Person | Self [birth year] Home: | [address] | | [place] | al/Fam | | 1941 | [phone] | | | [place] | | [phone] | [place] [address] | + +--------+ +--------+ + +
--- OUTSIDE RECORDS SUMMARY | ~2017-12-03 | XMS | Encounter Summary ---
Demographics + + + | Address | [address] | | | [place] [address] | + + + | Home Phone | | + + + | Preferred Language | Unknown | + + + | Marital Status | Single | + + + | Hinduism Affiliation | Unknown | + + + | Race | Unknown | + + + | Ethnic Group | Unknown | + + + Author + + + | Author | [facility] | + + + | Organization | [facility] | + + + | Address | Unknown | + + + | Phone | Unavailable | + + + Support + + +---------+ + | Name | Relationship | Address | Phone | + + +---------+ + | Tesha Kilgore | ECON | Unknown | | + + +---------+ + Care Team Providers + +------+ + | Care Engineering Programmer Name | Role | Phone | + +------+ + PCP | Unavailable | + +------+ + Encounter Details +--------+ + + + + | Date | Type | Department | Care Team | Description | +--------+ + + + + | 09/23/ | Ancillary | [facility] | Mari Sanford MD | Edema, unspecified | | 2018 | Procedure | ECHO | [address] | type | | | | | [place] | | | | | | [address] | | | | | | | | +--------+ + + + + Social History + +-------+ +--------+------+ | Tobacco Use | Types | Packs/Day | Years | Date | | | | | Used | | + +-------+ +--------+------+ | Never Assessed | | | | | + +-------+ +--------+------+ + + + | Sex Assigned at | Date Recorded | | | | + + + | Not on file | | + + + as of this encounter Plan of Treatment Not on fileas of this encounter Procedures + +--------+ + + + | Procedure Name | Priori | Date/Time | Associated Diagnosis | Comments | | | ty | | | | + +--------+ + + + | ECHO OUTSIDE | Routin | 09/23/2017 | Edema, unspecified | Results for this | | INTERPRETATION | e | 2:20 PM | type | procedure are in the | | STANDARD | | PDT | | results section. | + +--------+ + + + in this encounter Results ECHO outside interpretation standard (09/23/2017 2:20 PM) + + + | Impressions | Performed At | + + + | 1. This was a technically difficult study with suboptimal views. 2. | [facility] | | Grossly normal LV size with normal systolic function. 3. The right | RADIOLOGY | | ventricle is normal in size and function. 4. Mild degenerative | | | changes in the mitral and aortic valves. 5. There is no pericardial | | | effusion. | | + + + + + + | Narrative | Performed At | + + + | Patient Name: Gaye Luque Date of : 1940 | [facility] | | Performing Physician: Thiago | RADIOLOGY | | [facility] | | | | | | INDICATIONS Edema CONCLUSIONS 1. This | | | was a technically difficult study with suboptimal views. 2. Grossly | | | normal LV size with normal systolic function. 3. The right ventricle | | | is normal in size and function. 4. Mild degenerative changes in the | | | mitral and aortic valves. 5. There is no pericardial effusion. | | | FINDINGS -------- ECG rhythm: Sinus rhythm. Study: A 2-dimensional | | | transthoracic echocardiogram with m-mode, spectral and color flow | | | Doppler was perfomed. Study: This was a technically difficult study | | | with suboptimal views. Study: Obese and upright in wheelchair. Left | | | Ventricle: Overall left ventricular systolic function is normal with, | | | an EF between 60 - 65 %. Left Ventricle: Grossly normal LV size | | | with normal systolic function. Unable to comment on regional wall | | | motion. Right Ventricle: The right ventricle is normal in size and | | | function. Left Atrium: The left atrium is normal in size. Right | | | Atrium: The right atrium is normal in size. Aortic Valve: The aortic | | | valve appears to be trileaflet. Aortic Valve: The aortic valve is | | | mildly calcified. Aortic Valve: There is no evidence of aortic | | | regurgitation. Aortic Valve: Mild aortic stenosis with peak/mean | | | pressure gradient of 6.31mmHg / 3.51mmHg, the aortic valve area by | | | continuity equation is 1.9cm . Mitral Valve: There is trace | | | mitral regurgitation. Mitral Valve: Mild mitral annular | | | calcification present. Tricuspid Valve: The tricuspid valve appears | | | structurally normal. Tricuspid Valve: Trace tricuspid regurgitation | | | present. Tricuspid Valve: There is no evidence of pulmonary | | | hypertension. Tricuspid Valve: The right ventricular systolic | | | pressure (pulmonary artery systolic pressure), as measured by Doppler, | | | is 20.22mmHg. Pulmonic Valve: The pulmonic valve was not well | | | visualized. Pulmonic Valve: Mild degenerative changes in the mitral | | | and aortic valves. Pericardium: There is no pericardial effusion. | | | Pericardium: No pleural effusion seen. IVC/Hepatic Veins: The IVC was | | | not well visualized. Aorta: Aortic arch not imaged. MEASUREMENTS | | | Ao asc: 3.58 cm Ao Diam: 3.[address] | | | junct: 3.13 cm LA Diam: 3.28 cm EDV(Teich): 99.19 ml | | | IVSd: 1.12 cm LVIDd: 4.63 cm LVPWd: 0.79 cm LVOT | | | Area: 2.98 cm2 LVOT Diam: 1.95 cm %FS: 23.06 % | | | EF(Teich): 46.29 % ESV(Teich): 53.27 ml LVIDs: 3.56 cm | | | SV(Teich): 45.92 ml Ao Root: 3.61 cm Ao Diam SVals: 3.39 | | | cm LAESV(A-L): 69.19 ml LAESV Index (A-L): 31.16 ml/m2 | | | LAAs A2C: 18.34 cm2 LAESV A-L A2C: 58.91 ml LALs A2C: | | | 4.84 cm LAAs A4C: 21.54 cm2 LAESV A-L A4C: 66.75 ml LALs | | | A4C: 5.90 cm RAAs: 15.97 cm2 RAESV A-L: 39.86 ml RAESV | | | MOD: 38.86 ml RALs: 5.43 cm TAPSE: 2.85 cm AV | | | maxP.30 mmHg AV meanP.51 mmHg AV Vmax: 1.25 m/s | | | AV Vmean: 0.89 m/s AV VTI: 25.86 cm GILDA Vmax: 1.78 cm2 | | | GILDA (VTI): 1.89 cm2 LVOT maxP.25 mmHg LVOT meanPG: | | | 1.20 mmHg LVSI Dopp: 22.06 ml/m2 LVSV Dopp: 48.98 ml LVOT | | | Vmax: 0.75 m/s LVOT Vmean: 0.50 m/s LVOT VTI: 16.38 cm | | | MV A [place]: 0.63 m/s MV Dec Clinch: 1.87 m/s2 MV DecT: | | | 287.59 ms MV E [place]: 0.53 m/s MV E/A Ratio: 0.85 MV | | | PHT: 83.40 ms MVA By PHT: 2.63 cm2 Septal e': 0.02 m/s | | | Septal E/e': 21.02 Lateral e': 0.06 m/s Lateral E/e': | | | 8.78 RAP: 5 mmHg RVSP: 20.22 mmHg TR maxP.22 mmHg | | | TR Vmax: 1.95 m/s Beautician Apprentice: Authenticated by: Thiago | | | [facility] Report Date/Time: 09-23-2017 20:47:4 | | + + + + + | Procedure Note | + + | Ruslan, Rad Results In - 09/23/2017 8:51 PM PDT Patient Name: Fili Luque of | | : 1940Accession: [id number] Physician: Thiago | | [place] INDICATIONS------ | | -----EdemaCONCLUSIONS 1. This was a technically difficult study with | | suboptimal views.2. Grossly normal LV size with normal systolic function. 3. The right | | ventricle is normal in size and function.4. Mild degenerative changes in the mitral and | | aortic valves. 5. There is no pericardial effusion.FINDINGS--------ECG rhythm: Sinus | | rhythm.Study: A 2-dimensional transthoracic echocardiogram with m-mode, spectral and | | color flow Doppler was perfomed. Study: This was a technically difficult study with | | suboptimal views. Study: Obese and upright in wheelchair.Left Ventricle: Overall left | | ventricular systolic function is normal with, an EF between 60 - 65 %. Left Ventricle: | | Grossly normal LV size with normal systolic function. Unable to comment on regional wall | | motion.Right Ventricle: The right ventricle is normal in size and function.Left Atrium: | | The left atrium is normal in size.Right Atrium: The right atrium is normal in size. | | Aortic Valve: The aortic valve appears to be trileaflet. Aortic Valve: The aortic valve | | is mildly calcified. Aortic Valve: There is no evidence of aortic regurgitation. Aortic | | Valve: Mild aortic stenosis with peak/mean pressure gradient of 6.31mmHg / 3.51mmHg, the | | aortic valve area by continuity equation is 1.9cm .Mitral Valve: There is trace | | mitral regurgitation. Mitral Valve: Mild mitral annular calcification present.Tricuspid | | Valve: The tricuspid valve appears structurally normal. Tricuspid Valve: Trace tricuspid | | regurgitation present. Tricuspid Valve: There is no evidence of pulmonary hypertension. | | Tricuspid Valve: The right ventricular systolic pressure (pulmonary artery systolic | | pressure), as measured by Doppler, is 20.22mmHg.Pulmonic Valve: The pulmonic valve was | | not well visualized. Pulmonic Valve: Mild degenerative changes in the mitral and aortic | | valves. Pericardium: There is no pericardial effusion. Pericardium: No pleural effusion | | seen.IVC/Hepatic Veins: The IVC was not well visualized.Aorta: Aortic arch not | | imaged.MEASUREMENTS Ao asc: 3.58 cmAo Diam: 3.[address] junct: 3.13 | | cmLA Diam: 3.28 cmEDV(Teich): 99.19 mlIVSd: 1.12 cmLVIDd: 4.63 cmLVPWd: 0.79 | | cmLVOT Area: 2.98 [id number] Diam: 1.95 cm%FS: 23.06 %EF(Teich): 46.29 %ESV(Teich): | | 53.27 mlLVIDs: 3.56 cmSV(Teich): 45.92 mlAo Root: 3.61 cmAo Diam SVals: 3.39 | | cmLAESV(A-L): 69.19 mlLAESV Index (A-L): 31.16 ml/m2LAAs A2C: 18.34 [id number] A-L | | A2C: 58.91 mlLALs A2C: 4.84 cmLAAs A4C: 21.54 [id number] A-L A4C: 66.75 mlLALs | | A4C: 5.90 cmRAAs: 15.97 [id number] A-L: 39.86 mlRAESV MOD: 38.86 mlRALs: 5.43 | | cmTAPSE: 2.85 cmAV maxP.30 mmHgAV meanP.51 mmHgAV Vmax: 1.25 m/Jeanie | | Vmean: 0.89 m/Jeanie VTI: 25.86 cmAVA Vmax: 1.78 cm2AVA (VTI): 1.89 [id number] maxPG: | | 2.25 mmHgLVOT meanP.20 mmHgLVSI Dopp: 22.06 ml/m2LVSV Dopp: 48.98 mlLVOT | | Vmax: 0.75 m/sLVOT Vmean: 0.50 m/sLVOT VTI: 16.38 cmMV A [place]: 0.63 m/sMV Dec | | Clinch: 1.87 m/s2MV DecT: 287.59 msMV E [place]: 0.53 m/sMV E/A Ratio: 0.85 MV PHT: | | 83.40 msMVA By PHT: 2.63 [id number] e': 0.02 m/sSeptal E/e': 21.02 Lateral e': | | 0.06 m/sLateral E/e': 8.78 RAP: 5 mmHgRVSP: 20.22 mmHgTR maxP.22 mmHgTR | | Vmax: 1.95 m/sSonographer: Authenticated by: Thiago Bryant Date/Time: | | 09-23-2017 20:47:4IMPRESSION:1. This was a technically difficult study with suboptimal | | views.2. Grossly normal LV size with normal systolic function. 3. The right ventricle is | | normal in size and function.4. Mild degenerative changes in the mitral and aortic | | valves. 5. There is no pericardial effusion. | |IVC/Hepatic Veins: The IVC was not well visualized. | |Aorta: Aortic arch not imaged. | | | |MEASUREMENTS | | | |Ao asc: 3.58 cm | |Ao Diam: 3.19 cm | |Ao st junct: 3.13 cm | |LA Diam: 3.28 cm | |EDV(Teich): 99.19 ml | |IVSd: 1.12 cm | |LVIDd: 4.63 cm | |LVPWd: 0.79 cm | |LVOT Area: 2.98 cm2 | |LVOT Diam: 1.95 cm | |%FS: 23.06 % | |EF(Teich): 46.29 % | |ESV(Teich): 53.27 ml | |LVIDs: 3.56 cm | |SV(Teich): 45.92 ml | |Ao Root: 3.61 cm | |Ao Diam SVals: 3.39 cm | |LAESV(A-L): 69.19 ml | |LAESV Index (A-L): 31.16 ml/m2 | |LAAs A2C: 18.34 cm2 | |LAESV A-L A2C: 58.91 ml | |LALs A2C: 4.84 cm | |LAAs A4C: 21.54 cm2 | |LAESV A-L A4C: 66.75 ml | |LALs A4C: 5.90 cm | |RAAs: 15.97 cm2 | |RAESV A-L: 39.86 ml | |RAESV MOD: 38.86 ml | |RALs: 5.43 cm | |TAPSE: 2.85 cm | |AV maxP.30 mmHg | |AV meanP.51 mmHg | |AV Vmax: 1.25 m/s | |AV Vmean: 0.89 m/s | |AV VTI: 25.86 cm | |GILDA Vmax: 1.78 cm2 | |GILDA (VTI): 1.89 cm2 | |LVOT maxP.25 mmHg | |LVOT meanP.20 mmHg | |LVSI Dopp: 22.06 ml/m2 | |LVSV Dopp: 48.98 ml | |LVOT Vmax: 0.75 m/s | |LVOT Vmean: 0.50 m/s | |LVOT VTI: 16.38 cm | |MV A [place]: 0.63 m/s | |MV Dec Clinch: 1.87 m/s2 | |MV DecT: 287.59 ms | |MV E [place]: 0.53 m/s | |MV E/A Ratio: 0.85 | |MV PHT: 83.40 ms | |MVA By PHT: 2.63 cm2 | |Septal e': 0.02 m/s | |Septal E/e': 21.02 | |Lateral e': 0.06 m/s | |Lateral E/e': 8.78 | |RAP: 5 mmHg | |RVSP: 20.22 mmHg | |TR maxP.22 mmHg | |TR Vmax: 1.95 m/s | | | |Beautician Apprentice: | |Authenticated by: Thiago Hankins | |Report Date/Time: 09-23-2017 20:47:4 | | | |IMPRESSION: | |1. This was a technically difficult study with suboptimal views. | |2. Grossly normal LV size with normal systolic function. | |3. The right ventricle is normal in size and function. | |4. Mild degenerative changes in the mitral and aortic valves. | |5. There is no pericardial effusion. | + + + + + + + | Performing | Address | City/State/Zipcode | Phone Number | | Organization | | | | + + + + + | [facility] | [address] | [place] [address] | | + + + + + in this encounter Visit Diagnoses + + | Diagnosis | + + | Edema, unspecified type | + +"
--- OUTSIDE RECORDS SUMMARY | ~2017-12-03 | XMS | Clinical Summary ---
Demographics + + + | Address | [address] | | | [place] [address] | + + + | Home Phone | | + + + | Preferred Language | Unknown | + + + | Marital Status | Single | + + + | Jehovah'S Witness Affiliation | CAT | + + + | Race | White | + + + | Ethnic Group | Not or | + + + Author + + + | Author | [facility] | + + + | Organization | [facility] | + + + | Address | Unknown | + + + | Phone | Unavailable | + + + Support + + +---------+ + | Name | Relationship | Address | Phone | + + +---------+ + | BISHOP CHACON | ECON | Unknown | | + + +---------+ + Care Team Providers + +------+ + | Care Curriculum Assistant Principal Name | Role | Phone | + +------+ + | Benjamín Cristina MD | PP | | + +------+ + Source Comments IVET is fully live on both [facility] and [facility] Allergies + + + + + + | Active Allergy | Reactions | Severity | Noted | Comments | | | | | Date | | + + + + + + | Codeine | Unknown | | 11/07/19 | | | | | | 13 | | + + + + + + | Hydromorphone (Bulk) | Hallucinations | | 09/19/19 | | | | | | 13 | | + + + + + + | Lisinopril | Cough | | 11/07/19 | | | | | | 13 | | + + + + + + | Morphine | Unknown | | 09/19/19 | Bradypnea after | | | | | 13 | cholecystectomy As | | | | | | of 12/25/12 pt states | | | | | | taking morphine | | | | | | without adverse | | | | | | reaction | + + + + + + | Penicillins | Hives | | 09/19/19 | blisters | | | | | 13 | | + + + + + + | Oxycodone | Nausea, Nausea and | | 09/19/19 | | | Ukr-Jjvachude-Pna | Vomiting | | 13 | | + + + + + + | Sulfamethoxazole-Tri | Unknown | | 09/19/19 | Mouth felt like on | | methoprim | | | 13 | fire. | + + + + + + | Pentazocine Lactate | Nausea, Nausea and | | 11/07/19 | | | | Vomiting | | 13 | | + + + + + + | Doxycycline Calcium | Unknown | | 09/19/19 | Pt's States mouth | | | | | 13 | sore cannot eat or | | | | | | drink. | + + + + + + Current Medications + + + +---------+------+------+-------+ | Prescription | Sig. | Disp. | Refills | Star | End | Statu | | | | | | t | Date | s | | | | | | Date | | | + + + +---------+------+------+-------+ | GABAPENTIN 300 mg | once daily. | | | 06/0 | | Activ | | Oral capsule | | | | 3/20 | | e | | | | | | 13 | | | + + + +---------+------+------+-------+ | LOSARTAN 100 mg | once daily. | | | 06/0 | | Activ | | Oral tablet | | | | 3/20 | | e | | | | | | 13 | | | + + + +---------+------+------+-------+ | OXYBUTYNIN 5 mg | once daily. | | | 06/0 | | Activ | | Oral tablet | | | | 3/20 | | e | | | | | | 13 | | | + + + +---------+------+------+-------+ | Aspirin 81 mg Oral | Take 81 mg by mouth | | | | | Activ | | tablet | once daily. | | | | | e | + + + +---------+------+------+-------+ | atenolol 100 mg | Take 25 mg by mouth | | | | | Activ | | Oral tablet | once daily. Take | | | | | e | | | only 25 mg once | | | | | | | | daily | | | | | | + + + +---------+------+------+-------+ | FLUoxetine 20 mg | Take 20 mg by mouth | | | | | Activ | | Oral capsule | once daily. | | | | | e | + + + +---------+------+------+-------+ | metFORMIN 500 mg | Take 500 mg by mouth | | | | | Activ | | Oral tablet | two times daily. | | | | | e | + + + +---------+------+------+-------+ | cholecalciferol, | Take 2,000 Units by | | | | | Activ | | Vitamin D3, (VITAMIN | mouth once daily. | | | | | e | | D3) 2,000 unit Oral | | | | | | | | capsule | | | | | | | + + + +---------+------+------+-------+ | lovastatin 20 mg | Take 20 mg by mouth | | | | | Activ | | Oral tablet | once daily in the | | | | | e | | | evening. Administer | | | | | | | | with evening meal. | | | | | | + + + +---------+------+------+-------+ | | Take 1 Tab by mouth | | | | | Activ | | HYDROcodone-acetamin | every four hours as | | | | | e | | ophen 7.5-325 mg | needed. Not to | | | | | | | Oral tablet | exceed 10 tablets | | | | | | | | per any 24 hour | | | | | | | | period. (Not to | | | | | | | | exceed 3250 mg of | | | | | | | | acetaminophen from | | | | | | | | all products per 24 | | | | | | | | hour period.) | | | | | | + + + +---------+------+------+-------+ | polyethylene | Take 17 g by mouth | 119 g | 0 | 08/2 | | Activ | | glycol 17 gram/dose | once daily as needed | | | 5/20 | | e | | Oral Powder | (No BM in past 3 | | | 13 | | | | | days). | | | | | | + + + +---------+------+------+-------+ | morphine 15 mg | Take 0.5-1 Tabs by | 90 Tab | 0 | 08/2 | | Activ | | Oral tablet | mouth every four | | | 5/20 | | e | | | hours as needed for | | | 13 | | | | | severe pain. 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 | 11/22/2012 | + + + Social History + + + +--------+ + | Tobacco Use | Types | Packs/Day | Years | Date | | | | | Used | | + + + +--------+ + | Former Smoker | Cigarettes | 1 | 20 | Quit: 04/07/1969 | + + + +--------+ + + +---+---+---+ | Smokeless Tobacco: | | | | | Never Used | | | | + +---+---+---+ + + +---------+ + | Alcohol Use | Drinks/We | oz/Week | Comments | | | ek | | | + + +---------+ + | No | | | | + + +---------+ + + + + | Sex Assigned at | Date Recorded | | | | + + + | Not on file | | + + + Last Filed Vital Signs + + + + | Vital Sign | Reading | Time Taken | + + + + | Blood Pressure | 125/75 | 12/25/2012 10:39 AM PDT | + + + + | Pulse | 80 | 12/25/2012 10:39 AM PDT | + + + + | Temperature | 37.1 C (98.8 F) | 12/25/2012 10:39 AM PDT | + + + + | Respiratory Rate | 18 | 12/25/2012 10:39 AM PDT | + + + + | Oxygen Saturation | 96% | 11/29/2012 9:30 AM PDT | + + + + | Inhaled Oxygen | - | - | | Concentration | | | + + + + | Weight | 110 kg (242 lb 9.6 | 12/25/2012 10:39 AM PDT | | | oz) | | + + + + | Height | 158.8 cm (5' 2.5") | 12/25/2012 10:39 AM PDT | + + + + | Body Mass Index | 43.67 | 12/25/2012 10:39 AM PDT | + + + + Plan of Treatment + + + + + | Health Maintenance | Due Date | Last Done | Comments | + + + + + | INFLUENZA VACCINE | | | | | (FLU SHOT) | 8 | | | + + + + + Implants + +------+--------+ +--------+--------+--------+ | Implanted | Type | Area | Manufacture | Device | Expira | Model | | | | | r | | tion | / | | | | | | Identi | Date | Serial | | | | | | fier | | / Lot | + +------+--------+ +--------+--------+--------+ | Implant Duragen Suturable 3 X | | Left: | [employer] | | 09/03/ | DURS-3 | | 3 - [id number]: Qty: | | Brain | LIFESCIENCE | | 2015 | 391 / | | 1 on 11/23/2012 by Jessica, | | | S | | | /[id number] | | Cayetano Eldridge MD | | | | | | 10 | + +------+--------+ +--------+--------+--------+ | Plate Low Profile Strut 6 | | Left: | [facility] | | | 421.52 | | Hole Ti - [id number]: | | Head | | | | 2 / / | | Qty: 1 on 11/23/2012 by | | | | | | | | Cayetano Lopez MD | | | | | | | + +------+--------+ +--------+--------+--------+ | Plate Low Profile Sedalia Hole | | Left: | [facility] | | | 421.52 | | Cover 17mm Sarai Ti - | | Brain | | | | 7 / / | | [id number]: Qty: 2 on | | | | | | | | 11/23/2012 by Cayetano Lopez | | | | | | | | S, MD | | | | | | | + +------+--------+ +--------+--------+--------+ | Screw 4mm Self-Drilling Ti | | Left: | [employer] | | | 04.503 | | Matrix Neuro - | | Head | | | | .104.0 | | [id number]: Qty: 7 on | | | | | | 1 / / | | 11/23/2012 by Cayetano Lopez | | | | | | | | S, MD | | | | | | | + +------+--------+ +--------+--------+--------+ | Plate Low Profile Double Y | | Left: | [employer] [place] | | | 421.51 | | 18mm 6 Hole Ti - | | Head | | | | 6 / / | | [id number]: Qty: 1 on | | | | | | | | 11/23/2012 by Cayetano Lopez | | | | | | | | S, MD | | | | | | | + +------+--------+ +--------+--------+--------+ | Plate Low Profile Adaption 5 | | Left: | [employer] | | | 421.51 | | Hole Ti - [id number]: | | Head | | | | 8 / / | | Qty: 1 on 11/23/2012 by | | | | | | | | Cyaetano Lopez MD | | | | | | | + +------+--------+ +--------+--------+--------+ | Cement Hydroset 5cc - | | | CHIVO | | 06/04/ | [id number] | | [id number]: Qty: 1 on | | | SALES | | 2014 | 5 / | | 11/23/2012 by Talia Benjamin, | | | | | | /[id number] | | | | | | | | | | | | | | | | [id number] | | | | | | | | 8 | + +------+--------+ +--------+--------+--------+ Results Not on filefrom Last 3 Months Insurance + +--------+ +--------+ + + | Payer | Benefi | Subscriber | Type | Phone | Address | | | t Plan | ID | | | | | | / | | | | | | | Group | | | | | + +--------+ +--------+ + + | MEDICARE | MEDICA | xxxxxxxxxx | Medica | [phone] [phone] | | | RE A & | | re | [phone] | [place] [phone] | | | B | | | | | + +--------+ +--------+ + + | COMMERCIAL | INDIVI | [phone] | Indemn | | | | INDIVIDUAL | DUAL | | ity | | | | | COMMER | | | | | | | CIAL | | | | | + +--------+ +--------+ + + + +--------+ +--------+ + + | Guarantor Name | Accoun | Relation to | Date | Phone | Billing Address | | | t Type | Patient | of | | | | | | | | | | + +--------+ +--------+ + + | DORA LUQUE | Person | Self | [birth year] Home: | [address] | | | [place] | | 1941 | [phone] | [place] [address] | | | hollie | | | [phone] | | + +--------+ +--------+ + +
--- OUTSIDE RECORDS SUMMARY | ~2017-12-03 | XMS | Encounter Summary ---
Demographics + + + | Address | [address] | | | [place] [address] | + + + | Home Phone | | + + + | Preferred Language | Unknown | + + + | Marital Status | Single | + + + | Yarsani Affiliation | Unknown | + + + | Race | Unknown | + + + | Ethnic Group | Unknown | + + + Author + + + | Author | [facility] | + + + | Organization | [facility] | + + + | Address | Unknown | + + + | Phone | Unavailable | + + + Support + + +---------+ + | Name | Relationship | Address | Phone | + + +---------+ + | Tesha Kilgore | ECON | Unknown | | + + +---------+ + Care Team Providers + +------+ + | Care Farmworker Brooder Farm Name | Role | Phone | + +------+ + PCP | Unavailable | + +------+ + Encounter Details +--------+ + + + + | Date | Type | Department | Care Team | Description | +--------+ + + + + | 09/23/ | Ancillary | [facility] | Mari Sanford MD | Edema, unspecified | | 2018 | Orders | ECHO | [address] | type | | | | | [place] | | | | | | [id number] | | | | | | | [...] Treatment Not on fileas of this encounter Results ECHO outside interpretation standard [...] Gaye Luque Date of : 1940 | [facility] | | Performing Physician: Thiago | RADIOLOGY | | Nhi | | | | | | INDICATIONS [...] MV A [place]: 0.63 m/s MV Dec [place]: 1.87 m/s2 MV DecT: | | | [...] | | | TR Vmax: 1.95 m/s Electrician Station Assistant: Authenticated by: Thiago | | | Nhi Report Date/Time: 09-23-2017 20:47:4 | | + + + + + | Procedure Note | + + | Hang Mercer In 09/23/2017 8:51 PM PDT Patient Name: Fili Luque of | | : 1940Accession: [id number] Physician: Thiago | | Nhi INDICATIONS------ | | -----EdemaCONCLUSIONS 1. This was [...] cmLVPWd: 0.79 | | cmLVOT Area: 2.98 dq4GAFS Diam: 1.95 cm%FS: 23.06 %EF(Teich): 46.29 %ESV(Teich): | | 53.27 mlLVIDs: 3.56 cmSV(Teich): 45.92 mlAo Root: 3.61 cmAo Diam SVals: 3.39 | | cmLAESV(A-L): 69.19 mlLAESV Index (A-L): 31.16 ml/m2LAAs A2C: 18.34 wp8DYJVA A-L | | A2C: 58.91 mlLALs A2C: 4.84 cmLAAs A4C: 21.54 nc5DVQON A-L A4C: 66.75 mlLALs | | A4C: 5.90 cmRAAs: 15.97 dr3KZVPH A-L: 39.86 mlRAESV MOD: 38.86 mlRALs: 5.43 | | cmTAPSE: 2.85 cmAV maxP.30 mmHgAV meanP.51 mmHgAV Vmax: 1.25 m/Jeanie | | Vmean: 0.89 m/Jeanie VTI: 25.86 cmAVA Vmax: 1.78 cm2AVA (VTI): 1.89 py0DXPL maxPG: | | 2.25 mmHgLVOT meanP.20 mmHgLVSI Dopp: 22.06 ml/m2LVSV Dopp: 48.98 mlLVOT | | Vmax: 0.75 m/sLVOT Vmean: 0.50 m/sLVOT VTI: 16.38 cmMV A [place]: 0.63 m/sMV Dec | | [place]: 1.87 m/s2MV DecT: 287.59 msMV E [place]: 0.53 m/sMV E/A Ratio: 0.85 MV PHT: | | 83.40 msMVA By PHT: 2.63 ia1Diejin e': 0.02 m/sSeptal E/e': 21.02 Lateral e': [...] A [place]: 0.63 m/s | |MV Dec [place]: 1.87 m/s2 | |MV DecT: 287.59 ms [...] |TR Vmax: 1.95 m/s | | | |Electrician Station Assistant: | |Authenticated by: Mirnakanika Demario | |Report Date/Time: 09-23-2017 20:47:4 | | [...] | + + + + + | [facility] | [address] | [place], [place] [address] | | + + + + + in this encounter Visit Diagnoses + + | Diagnosis | + + | Edema, unspecified type | + +"
--- OUTSIDE RECORDS SUMMARY | ~2017-12-03 | XMS | Clinical Summary ---
Demographics + + + | Address | [address] | | | [place] [address] | + + + | Home Phone | | + + + | Preferred Language | Unknown | + + + | Marital Status | Single | + + + | Hinduism Affiliation | Unknown | + + + | Race | Unknown | + + + | Ethnic Group | Unknown | + + + Author + + + | Author | [facility] | + + + | Organization | [facility] | + + + | Address | Unknown | + + + | Phone | Unavailable | + + + Support + + +---------+ + | Name | Relationship | Address | Phone | + + +---------+ + | Tesha Kilgore | ECON | Unknown | | + + +---------+ + Care Team Providers + +------+ + | Care Golf Shoe Spike Assembler Name | Role | Phone | + +------+ + PP | Unavailable | + +------+ + Allergies + + + + + + | Active Allergy | Reactions | Severity | Noted | Comments | | | | | Date | | + + + + + + | Codeine | Other (See Comments) | Medium | 02/13/20 | Abstract | | | | | 13 | | + + + + + + | Hydromorphone | Other (See Comments) | Medium | 02/13/20 | abstract | | | | | 13 | | + + + + + + | Lisinopril | Other (See Comments) | Medium | 02/13/20 | Abstract | | | | | 13 | | + + + + + + | Morphine | Other (See Comments) | Medium | 02/13/20 | Abstract | | | | | 13 | | + + + + + + | Penicillins | Other (See Comments) | Medium | 02/13/20 | Abstract | | | | | 13 | | + + + + + + | Sulfamethoxazole-Tri | Other (See Comments) | Medium | 02/13/20 | Abstract | | methoprim | | | 13 | | + + + + + + | Pentazocine | Other (See Comments) | Medium | 02/13/20 | Abstract | | | | | 13 | | + + + + + + | Trimethoprim | Other (See Comments) | Medium | 02/13/20 | Abstracted | | | | | 13 | | + + + + + + Current Medications + + +-------+---------+------+------+-------+ | Prescription | Sig. | Disp. | Refills | Star | End | Statu | | | | | | t | Date | s | | | | | | Date | | | + + +-------+---------+------+------+-------+ | FLUoxetine | Take 20 mg by mouth | | | | | Activ | | (PROZAC) 20 MG | daily. | | | | | e | | capsule | | | | | | | + + +-------+---------+------+------+-------+ | lovastatin | Take 20 mg by mouth | | | | | Activ | | (MEVACOR) 20 MG | nightly. | | | | | e | | tablet | | | | | | | + + +-------+---------+------+------+-------+ | metFORMIN | Take 500 mg by mouth | | | | | Activ | | (GLUCOPHAGE) 500 MG | 2 (two) times daily | | | | | e | | tablet | with meals. | | | | | | + + +-------+---------+------+------+-------+ | aspirin 81 MG EC | Take 81 mg by mouth | | | | | Activ | | tablet | daily with | | | | | e | | | breakfast. | | | | | | + + +-------+---------+------+------+-------+ | gabapentin | Take 300 mg by mouth | | | | | Activ | | (NEURONTIN) 300 MG | 2 (two) times | | | | | e | | capsule | daily. | | | | | | + + +-------+---------+------+------+-------+ | losartan (COZAAR) | Take 100 mg by mouth | | | | | Activ | | 100 MG tablet | daily. | | | | | e | + + +-------+---------+------+------+-------+ | Cholecalciferol | Take 2,000 Units by | | | | | Activ | | (VITAMIN D3) 2000 | mouth daily. | | | | | e | | UNITS capsule | | | | | | | + + +-------+---------+------+------+-------+ | oxybutynin | Take 5 mg by mouth | | | | | Activ | | (DITROPAN-XL) 5 MG | daily. | | | | | e | | 24 hr tablet | | | | | | | + + +-------+---------+------+------+-------+ | | 1 drop 3 (three) | | | | | Activ | | carboxymethylcellulo | times daily. | | | | | e | | se (REFRESH | | | | | | | | CELLUVISC) 1 % | | | | | | | | ophthalmic solution | | | | | | | + + +-------+---------+------+------+-------+ | atenolol | Take 100 mg by mouth | | | | | Activ | | (TENORMIN) 100 MG | daily. / po qd | | | | | e | | tablet | | | | | | | + + +-------+---------+------+------+-------+ | | Take 1 tablet by | | | | | Activ | | HYDROcodone-acetamin | mouth. 2 po q 4hr | | | | | e | | ophen (NORCO) | prn | | | | | | | 7.5-325 MG per | | | | | | | | tablet | | | | | | | + + +-------+---------+------+------+-------+ Active Problems + + + | Problem | Noted Date | + + + | Coronary atherosclerosis of ely shoshone coronary artery | 02/12/2013 | + + + | Occlusion and stenosis of carotid artery without mention of | 02/12/2013 | | cerebral infarction | | + + + | Undiagnosed cardiac murmurs | 02/12/2013 | + + + Encounters +--------+ + + + + | Date | Type | Specialty | Care Team | Description | +--------+ + + + + | 09/23/ | Ancillary | | Mari Sanford MD | Edema, unspecified | | 2017 | Procedure | | | type | +--------+ + + + + | 09/23/ | Ancillary | | Mari Sanford MD | Edema, unspecified | | 2017 | Orders | | | type | +--------+ + + + + from Last 3 Months Social History + +-------+ +--------+------+ | Tobacco [...] on file | | + + + Plan of Treatment + [...] | + + + + + | DEXA SCAN SCREENING | | | | | | 5 | | | + + + + + | Vaccine: | | | | | Pneumococcal 65+ | 5 | | | | Low/Medium Risk (1 | | | | | of 2 - PCV13) | | | | + + + + + | Vaccine: Influenza | | | | | (#1) | 8 | | | + + + + + Procedures + +--------+ + + + | [...] section. | + +--------+ + + + from Last 3 Months Results ECHO outside interpretation standard (09/23/2017 2:20 [...] | + + + | Patient Name: Dora Luque Date of : 1940 | [facility] | | Performing Physician: Thiago | RADIOLOGY | | [facility] | | | | | | INDICATIONS [...] MV A [place]: 0.63 m/s MV Dec [place]: 1.87 m/s2 MV DecT: | | | [...] | | | TR Vmax: 1.95 m/s Geodetic Computator: Authenticated by: Thiago | | | [facility] Report Date/Time: 09-23-2017 20:47:4 | | + + + + + | Procedure Note | + + | Ruslan, Rad Results In - 09/23/2017 8:51 PM PDT Patient Name: Fili Luque of | | : 1940Accession: [id number] Physician: Thiago | | Alsamara INDICATIONS------ | [...] cmLVPWd: 0.79 | | cmLVOT Area: 2.98 xu1VYFN Diam: 1.95 cm%FS: 23.06 %EF(Teich): 46.29 %ESV(Teich): | | 53.27 mlLVIDs: 3.56 cmSV(Teich): 45.92 mlAo Root: 3.61 cmAo Diam SVals: 3.39 | | cmLAESV(A-L): 69.19 mlLAESV Index (A-L): 31.16 ml/m2LAAs A2C: 18.34 nm5KJYJN A-L | | A2C: 58.91 mlLALs A2C: 4.84 cmLAAs A4C: 21.54 oq7PDWVI A-L A4C: 66.75 mlLALs | | A4C: 5.90 cmRAAs: 15.97 yu1WAYQF A-L: 39.86 mlRAESV MOD: 38.86 mlRALs: 5.43 | | cmTAPSE: 2.85 cmAV maxP.30 mmHgAV meanP.51 mmHgAV Vmax: 1.25 m/Jeanie | | Vmean: 0.89 m/Jeanie VTI: 25.86 cmAVA Vmax: 1.78 cm2AVA (VTI): 1.89 lf2UCIV maxPG: | | 2.25 mmHgLVOT meanP.20 mmHgLVSI Dopp: 22.06 ml/m2LVSV Dopp: 48.98 mlLVOT | | Vmax: 0.75 m/sLVOT Vmean: 0.50 m/sLVOT VTI: 16.38 cmMV A [place]: 0.63 m/sMV Dec | | [place]: 1.87 m/s2MV DecT: 287.59 msMV E [place]: 0.53 m/sMV E/A Ratio: 0.85 MV PHT: | | 83.40 msMVA By PHT: 2.63 au7Qgtmhb e': 0.02 m/sSeptal E/e': 21.02 Lateral e': [...] A [place]: 0.63 m/s | |MV Dec [place]: 1.87 m/s2 | |MV DecT: 287.59 ms [...] |TR Vmax: 1.95 m/s | | | |Geodetic Computator: | |Authenticated by: Thiago Hankins | |Report [...] | + + + + + | [facility] | [address] | [place] [address] | | + + + + + from Last 3 Months Insurance + +--------+ +------+-------+ + | Payer | Benefi | Subscriber | Type | Phone | Address | | | t Plan | ID | | | | | | / | | | | | | | Group | | | | | + +--------+ +------+-------+ + | MEDICARE | MEDICA | [id number] | | | [address] | | | RE | | | | [place] [address] | | | IP-OP | | | | | + +--------+ +------+-------+ + + +--------+ +--------+ + + | Guarantor Name | Accoun | Relation to | Date | Phone | Billing Address | | | t Type | Patient | of | | | | | | | | | | + +--------+ +--------+ + + | DORA LUQUE | Person | Self [birth year] | Home: | [address] | | | al/Fam | | 1941 | [phone] | [place] | | | [place]ollie | | | [phone] | + +--------+ +--------+ + +"
[~2017-12-03 17:04] MED LIST changes: +ATENOLOL50 MG PO; +B-121000 MC2 PO; +CALCI-CHEW500 MG PO; +CHOLESTYRAMINE P4 GM PO; +CITROMA296 ML PO; +FLUTICASONE PRO16 GM NAS; +FOLIC ACID1 MG PO; +KETOCONAZOLE15 GM TOP; +MAG-OXIDE400 MG PO; +NYSTATIN15 G2 TOP; +OYSTER SHELL C500 MG PO; +SPIRONOLACTONE25 MG PO
--- NOTE | 2017-12-03 17:15 | NUR ---
77 year old female patient admitted to ccu DIRECT ADMIT FROM DR. BAIN OFFICE. PT IS BEING ADMITTED TO CCU UNDER DR. CANDELARIA. PATIENT ARRIVED TO CCU VIA WC. OVERHEAD LIFT USED TO HELP PATIENT TO BED. ADMISSION PROCESS STARTED.
--- NOTE | 2017-12-03 17:42 | NUR ---
DR. CANDELARIA HERE TO SEE PATIENT. 22 GA JELCO STARTED TO LEFT WRIST AREA.
--- NOTE | 2017-12-03 19:39 | NUR ---
TAKING SIPS OF CLEAR LIQUIDS. REPORT TO NEXT SHIFT.
--- NOTE | 2017-12-03 19:45 | NUR ---
REPORT RECEIVED FROM NATTY MOSES. PT IS RESTING IN BED WITH EYES CLOSED, HR 50'S, RR 14 EVEN AND UNLABORED.
--- NOTE | 2017-12-03 20:45 | NUR ---
PT HAS CONT TO SLEEP BUT AWAKENS EASILY FOR ASSESSMENT. ATTENDS DRY, WILL CONT TO MONITOR, PT HAS IVF RUNNING AT 125ML/HR. PAINFUL WITH MOVEMENT ONLY, OTHERWISE SHE STATES SHE IS COMFORTABLE AND JUST WANTS TO SLEEP.
--- NOTE | 2017-12-03 22:08 | NUR ---
PT HAS NOT HAD URINE OUT SINCE ARRIVAL, ATTENDS DRY, BLADDER SCAN DONE SHOWS 94ML. PT REPOSITIONED UP IN BED. CONT TO TALK AND AROUSABLE BUT CONFUSED TO SITUATION. PIC TAKEN OF SKIN BREAKDOWN ON COCCYX, OLD DRESSING HAD COME OFF, NEW ALLEVYN FOAM DRESSING APPLIED. DR CANDELARIA CALLED REGARDING URINE OUTPUT, ORDER GIVEN FOR 1L BOLUS OVER 4 HOURS. HR STEADY IN THE 50'S, RR 12, BPS 113/82.
--- NOTE | 2017-12-04 00:06 | NUR ---
ASSESSMENT DONE, ATTENDS STILL DRY, PT REPOSITIONED UP IN BED. BOLUS HALF COMPLETED. VSS, SIPS OF WATER GIVEN AND PT QUICKLY BAKC TO SLEEP.
--- NOTE | 2017-12-04 01:55 | NUR ---
BOLUS COMPLETED, PT HAS JUST NOW VOIDED INTO ATTENDS. BP'S ARE A BIT LOW, CONT TO MONITOR. HR STEADY IN 50'S, RR 16.
--- NOTE | 2017-12-04 04:00 | NUR ---
PT CONT TO SLEEP, ATTENDS DRY, BPS CONT TO BE SOFT BUT NOT DROPPING.
--- NOTE | 2017-12-04 06:20 | NUR ---
ATTENDS WET, CHANGED, PT REPOSITIONED AND BACK TO SLEEP. STILL CONFUSED.
--- NOTE | 2017-12-04 08:18 | NUR ---
DR CANDELARIA INTO SEE PT THIS AM. PT WILL BE TRANSFERED TO THE M/S UNIT AT SOME POINT TODAY. VITAL SIGNS TAKE, PT ASKED WHAT SHE WOULD LIKE FOR BKF, BUT DOES NOT WANT TO EAT AT THIS TIME "I WANT TO SEE SOME MORE TOO EARLY TO EAT".
--- NOTE | 2017-12-04 09:00 | NUR ---
RECEIVED CALL FROM DEVEN OTOOLE REGARDING PT. THIS WEBSPH[employer] COMMERCE CONSULTANT WAS INFORMED THAT PT WILL BE MOVING TO [facility] FOR A HIGHER LEVEL OF CARE. [facility] IS WAITING FOR A SIT TO STAND LIFT TO USE WITH THIS PATIENT.
--- NOTE | 2017-12-04 10:52 | NUR ---
PT IS AWAKE AT THIS TIME, PULLED UP IN BED AT THIS TIME, TO EAT SOME BKF AT THIS TIME. PT CONTIOUES TO BE CONFUSED, PER DANNY MOSES AT [facility] EATATES THIS IS HER NORM.
--- NOTE | 2017-12-04 11:53 | NUR ---
PT PLACED ON TELE # 8 AT THIS TIME, AND BED BATH GIVEN.
--- NOTE | 2017-12-04 12:13 | NUR ---
COMPLETED AM CARE AT THIS TIME. PT C/O THAT SHE HAD TO BE CLEANED UP. "WHY" EXPLAINED AND PT TOLERATED CARE FROM STAFF. PT TURNED TO LEFT SIDE AT THIS TIME.
--- NOTE | 2017-12-04 12:15 | NUR ---
PT SITTING UP SORT OF IN BED, EATING OATMEAL. COMPLAINS OF R. LEG HITTING RAIL-PLACED A PILLOW AND THAT SEEMED TO GIVE SOME RELIEF. PT STATED THAT SHE WOULD LIKE TO HAVE THE CRUSHER FEEDER COME. I WAS ABLE TO CONNECT WITH ELADIA MURPHY AND SHE WILL SHARE WITH FR TAYLOR. WILL FOLLOW NEEDED
--- NOTE | 2017-12-04 13:18 | NUR ---
FAMILY INTO SEE PT AT THIS TIME. QUESTIONS ANSWERED AT THIS TIME.
--- NOTE | 2017-12-04 13:53 | NUR ---
PT CONTIOUES TO SLEEP AT THIS TIME, AWAKENS WHEN SPOKEN TOO. PT HAS NOT ORDER LUNCH AT THIS TIME.
[2017-12-04] MEDS ORDERED: MYRBETRIQ25 MG PO (14:35)
[2017-12-04] MEDS ORDERED: FINACEA50 GM TOP (15:14)
--- NOTE | 2017-12-04 15:36 | NUR ---
MED REC COMPLETE
--- NOTE | 2017-12-04 15:57 | NUR ---
report called to m/s nurse all questions answered a this time. pt will be transfered via her bed with all her personal belongings.
--- NOTE | 2017-12-04 16:30 | NUR ---
PT ATTENDS CHANGED AT THIS TIME, INCONTENT OF URINE, PT DOES NOT KNOW WHEN SHE IS WET. ALL PERSONAL BELONGINGS SENT WITH PT. PT TRASPORTED VIA BED TO ROOM 112.
--- NOTE | 2017-12-04 16:49 | NUR ---
PT ARRIVED TO THE UNIT, A TRANSFER FROM CCU, AT APPROXIMATELY 1635, VSS, NO DISTRESS. PT DENIES PAIN, NURSE MONITORING PROVIDING HEEL PROTECTORS AND WARM BLANKETS. PT IS BED BOUND/STEFFEN. PT IS USING THE SAME BED FROM CCU. PT HAS A SKIN TEAR TO THE COCCYX WITH ALLEVYN IN PLACE. WILL CONTINUE TO MONITOR.
--- NOTE | 2017-12-04 16:58 | NUR ---
CLEANED PATIENT'S EYES WITH WARM WASH CLOTH ALSO PUT HEEL PROTECTORS ON HER FEET. I ASKED ANOTHER COMMUNITY AFFAIRS MANAGER TO PLEASE BRING ME A WARM BLANKET.
--- NOTE | 2017-12-04 18:03 | NUR ---
PT ARRIVED FROM CCU AT APPROX 1635 THIS AFTERNOON. PT IS CONFUSED, PLEASANT, AND HAS HAD NO DISTRESS, VSS. PT HAS IV FLUIDS RUNNING AT 150/HR, HAS SIGNIFICANT GENERALIZED EDEMA, PITTING TO BLE, AND IS ECCHYMOTIC THROUGHOUT. PT USES A STEFFEN FOR TRANSFERRING.
--- NOTE | 2017-12-04 20:48 | NUR ---
VITALS DONE AND CHARTED. BEDSIDE TABLE AND CALL LIGHT IN REACH. INFORMED RN MARY ELLEN OF TEMP- 99.2 PT NEEDS NOTHING AT THIS TIME.
--- NOTE | 2017-12-05 02:28 | NUR ---
C/O CORONA AND GENERALIZED ABD PAIN, MEDICATED WTIH DILAUDID 1MG IV. UP TO BRP, VOIDED, DARK YELLOW URINE, BACK TO BED, NGT PATENT TO LIWS, IVF INFUSING W/O PROBLEMS AND SCDS IN PLACE. HOB ELEVATED 35 DEGREES, COLD WET TOWEL
--- NOTE | 2017-12-05 02:47 | NUR ---
GAVE PT TWO WARM BLANKETS.
--- NOTE | 2017-12-05 03:00 | NUR ---
PATIENT'S ENTIRE BED WAS WET DO TO A LARG INCONTINENCE ISSUE. PATIENT ALL WASHED UP AND CMPLETE LINEN CHANGED. NEW HEAVY DUTY DEIRDRE AND ATTENDS PLACED ON PATIENT AND PATIENT HAS BEEN RESTING QUIETLY EVER SINCE. EYES CLOSED AND RESPIRATIONS EVEN.
--- NOTE | 2017-12-05 06:42 | NUR ---
VITALS AND I&OS DONE AND CHARTED. BEDSIDE TABLE AND CALL LIGHT WITHIN REACH.
--- NOTE | 2017-12-05 06:54 | NUR ---
PATIENT HAS REMAINED DRY SINCE SHE HAD HER LARGE INCONTINENCE ISSUE DURING THE EVENING PART OF THE SHIFT. PATIENT REMAINS TO BE PLEAESAND ANDCOOPERATIVE WITH CARE.
--- NOTE | 2017-12-05 08:00 | NUR ---
PT RESTING IN BED, AROUSABLE. NO DISTRESS, DENIES NAUSEA/SOB/PAIN. PT REFUSED BREAKFAST THIS AM. PT IS CONFUSED, INTERMITTENTLY IS ABLE TO COMMUNICATE NEEDS IN AN UNDERSTANDABLE FASHION. DISCUSSED PT PLATELET FUNCTION WITH PROVIDER, NO ORDERS WRITTEN. PT ABLE TO TAKE PILLS BY MOUTH WITHOUT DIFFICULTY. ECCHYMOSIS TO ALL EXTREMETIES AND EDEMA IS UNCHANGED FROM YESTERDAY. WILL CONTINUE TO MONITOR.
--- NOTE | 2017-12-05 10:08 | NUR ---
PT RESTING, STATED THAT SHE JUST NEEDED TO REST NOW EXTENDED A BLESSING. WILL FOLLOW NEEDED
--- NOTE | 2017-12-05 11:00 | NUR ---
STAFF ASKED ME TO CALL [facility] IN REG[place]DS TO WHEN [facility] CAN GET A STAND/LIFT THAT DR CANDELARIA HAS WRITTEN AN RX FOR. I CALLED [facility]. BRAYDON STATED THAT [facility] HAS SPOKEN WITH THEM ABOUT THIS, PATIENTS INSURANCE DOES NOT COVER FOR A SIT TO STAND. SHE STATES PATIENT CAN PURCHASE ONE FOR $1145 OR RENT [id number] FOR $118.06. I SPOKE WITH PATIENT IN ROOM. SHE STATES SHE CANNOT AFFORD THIS. SHE STATES [facility] CAN USE A STEFFEN. WE DISCUSSED THAT THE CHUCK BONER FOR [facility] WILL NOT BE AVAILABLE TO SPEAK WITH UNTIL FRIDAY. I DID CALL [facility] AND SPEAK WITH DANNY, WHO STATED THEY ARE NOT ABLE TO CONSIDER HER TO COME THERE UNTIL FRIDAY WITH THE CHUCK BONER IS BACK. UPDATED STAFF.
--- NOTE | 2017-12-05 11:25 | NUR ---
THE NURSE AND I CHANGED THE PATIENT AND PUT PILLOWS ON EACH SIDE OF ARM. PUT A PILLOW ON HER RIGHT SIDE OF HIP.
--- NOTE | 2017-12-05 12:30 | NUR ---
PROVIDED LUL CARE TO PT, SHE IS COMPLETELY INCONTINENT. REPLACED ALLEVYN BANDAGE TO SKIN TEAR ON COCCYX AND CLEANED SITE WITH NORMAL SALINE. CHANGED BRIEF AND REPOSITIONED PT WITH PILLOWS TO ALLEVIATE STRESS TO BUTTOCK AREA. BUTTOCKS ARE RED AND BLANCHABLE. PT IS CONFUSED AND EXPLAINED PROCEDURES TO PT. NOTIFIED PROVIDER THAT WE ARE UNABLE TO PROVIDE ADEQUATE OUTPUT NUMBERS DUE TO INCONTINENCE.
--- NOTE | 2017-12-05 14:59 | NUR ---
ANOTHER REDUCING SALON ATTENDANT AND I CHANGED HER AND REPOSITIONED HER. GOING TO GO AND GET HER A CHOCOLATE ENSURE. AND MORE ICE WATER.
--- NOTE | 2017-12-05 17:03 | NUR ---
PROVIDED LUL CARE AND REPOSITIONED PT. PT HAS BEEN TURNED Q2 AND CHECKED FOR INCONTINENCE THROUGHOUT THIS SHIFT. PT DOES NOT PROMPT STAFF WHEN SHE NEEDS TO URINATE. PADS ARE SATURATED, BEDDING IS CLEAN. SMEAR FOR BM NOTED.
--- NOTE | 2017-12-05 18:53 | NUR ---
PT GIVEN LUL CARE AND REPOSITIONED JUST PRIOR TO SHIFT CHANGE. PT HAS NEW SKIN TEAR TO R KNEE. APPLIED NS AND GAUZE WITH TAPE FOR BLEEDING. PT TOLERATED WELL.
--- NOTE | 2017-12-05 18:56 | NUR ---
PT WAS ORDERED DINNER, WHEN ASKED IF SHE WANTED TO EAT AT APPROX 1800, PT REFUSED FOOD. WHEN RN AND ROTARY FURNACE OPERATOR CHECKED ON PT, PT STATED THAT SHE 'THREW AWAY' HER DINNER. ROTARY FURNACE OPERATOR WILL INVESTIGATE IF DINNER WAS DELIVERED AND REFUSED.
--- NOTE | 2017-12-05 19:18 | NUR ---
PATIENT WAS CHANGED EVERY 2 HOURS AND TURNED EVERY 2 HOURS WITH 2 PERSON ASSIST.
--- NOTE | 2017-12-05 20:45 | NUR ---
PT UTILIZES CALL LIGHT, PT DISORIENTED X 3. UNABLE TO EXPRESS NEEDS. NO S/SX OF DISTRESS PRESENT. PT BELONGINGS WITHIN REACH. CALL LIGHT REMAINS IN PT REACH.
--- NOTE | 2017-12-05 23:14 | NUR ---
PT TURNED AND REPOSITIONED. PT'S ATTENDS CHANGED. PT PROPPED WITH PILLOWS, HEEL PROTECTORS IN PLACE. PT STATES THAT SHE IS COMFORTABLE, DENIES FURTHER NEEDS AT THIS TIME. PERSONAL ITEMS WITHIN REACH. CALL LIGHT WITHIN REACH.
--- NOTE | 2017-12-06 00:24 | NUR ---
PT RESTING IN BED, WAKES EASILY WHEN IT ARCHITECTURE CONSULTANT ENTERS THE ROOM. PT ASSISTED TO TAKE A DRINK OF WATER. PT DENIES OTHER NEEDS AT THIS TIME. CALL LIGHT WITHIN REACH.
--- NOTE | 2017-12-06 01:42 | NUR ---
PT UTILIZED CALL LIGHT, REQUESTS TO BE TURNED AND CHANGED. PT'S ATTENDS CHANGED, PT REPOSITIONED AND PROPPED WITH PILLOWS. PT PROVIDED WITH ENSURE CLEAR AND WATER REFILLED PER REQUEST. PT DENIES OTHER NEEDS AT THIS TIME. CALL LIGHT IN PT'S LAP.
--- NOTE | 2017-12-06 04:26 | NUR ---
PT UTILIZES CALL LIGHT, REQUESTS TO HAVE HER ATTENDS CHANGED. PT CHANGED, REPOSITIONED, AND PROPPED WITH PILLOWS. PT DENIES FURTHER NEEDS AT THIS TIME. PERSONAL ITEMS WITHIN REACH. CALL LIGHT WITHIN REACH.
--- NOTE | 2017-12-06 05:22 | NUR ---
PT AWAKE OFF AND ON. PT CONFUSED/DISORIENTED. USES CALL LIGHT TO ASK WHAT BUTTONS ARE FOR ON THE BED REPEATEDLY. EDEMA TO BLE'S 3+. PT INCONTINENT OF STOOL AND URINE, ATTENDS IN PLACE. PT CALLS TO BE CHANGED THIS SHIFT, TURN Q 2. BM 12/05. SKIN INTEGRITY COMPROMISED, PT WITH BRUISING/SCABBING/SCALING HEAD TO TOE. SKIN TEAR TO R KNEE COVERED WITH 4X4. PRESSURE ULCER TO COCCYX, ALLEVYN FOAM PRESENT. HEEL PROTECTORS IN PLACE. NS @ 125. STEFFEN TRANSFER, WHEELCHAIR BOUND.
--- NOTE | 2017-12-06 09:14 | NUR ---
ANOTHER TELECOMMUNICATIONS SPECIALIST HELPED ME CHANGE HER AND REPOSITIONED HER. REFUSED TO EAT HER BREAKFAST BUT LEFT THE CHOCOLATE ENSURE FOR HER. NOW SHE IS SLEEPING.
--- NOTE | 2017-12-06 09:15 | NUR ---
PATIENT UNCOOPERATIVE WITH STAFF THIS MORNING. STATES "WILL YOU JUST LEAVE ME ALONE?" SISTER, BISHOP CALLED FOR UPDATE. THIS RN INFORMED HER OF CHANGED OVERNIGHT. PATIENT NOT WILLING TO VISIT WITH SISTER AT THIS TIME. SISTER TO CALL BACK LATER TODAY. CNAs TURNED AND CHANGED PATIENT RECENTLY. REPORTED TO THIS RN A SMALL BM. MIRALAX PROVIDED IN APPLE JUICE AT BEDSIDE WITHIN REACH OF PATIENT. ENSURE LEFT AT BEDSIDE WELL. REFUSED BREAKFAST. BRUISING NOTED GENERALIZED OVER WHOLE BODY.
--- NOTE | 2017-12-06 13:30 | NUR ---
THIS RN HAS TAKEN OVER CARES FOR THIS PT FROM JOSUÉ SANTOS. PT HAS NO C/O PAIN AT THIS TIME AND IS RESTING IN BED. PT IS FREQUENTLY BEING TURNED Q2HR WITH PILLOW SUPPORT. PT AT HIGH RISK FOR SKIN BREAKDOWN SO WE WILL CONTINUE THIS SCHEDULE. EDUCATION GIVEN TO PT ON IMPORTANCE OF TURNING IN BED. NS RUNNING AT 125 ML/HR. HEEL BOOTS IN PLACE. PT HAS NO QUESTIONS OR CONCERNS AT THIS TIME. CALL LIGHT AND BELONGINGS WITHIN REACH. FALL PRECAUTIONS IN PLACE. WILL CONTINUE TO MONITOR.
--- NOTE | 2017-12-06 14:25 | NUR ---
PT RESTING IN HER BED DOSING IN AND OUT OF A NAP. NO C/O PAIN. REPOSITIONED AND TURNED WITH PILLOW SUPPORT AT THIS TIME. NO QUESTIONS OR CONCERNS. ASSESSMENT COMPLETED AND NEW BAG OF FLUIDS SCANNED IN. CALL LIGHT WITHIN REACH. FALL PRECAUTIONS IN PLACE. WILL CONTINUE TO MONITOR.
--- NOTE | 2017-12-06 15:31 | NUR ---
THIS RN AND INVESTMENT ANALYST REPOSITIONED PT IN BED AT THIS TIME WITH PILLOWS. PT HAS NO C/O PAIN. SMALL INCONTINENT BM. LUL CARE COMPLETED AND DEPENDS CHANGED. PT CLEAN AND DRY. HEEL PROTECTOR BOOTS IN PLACE. NO QUESTIONS OR CONCERNS. CALL LIGHT WITHIN REACH AND FALL PRECAUTIONS IN PLACE. WILL CONTINUE TO MONITOR.
--- NOTE | 2017-12-06 16:06 | NUR ---
NURSE AND I CHANGED HER ABOUT 20MIN. AGO.
--- NOTE | 2017-12-06 16:11 | NUR ---
PATIENT CALLED AND WANTED A WARM BLANKET.
--- NOTE | 2017-12-06 17:33 | NUR ---
PT VS AND CONDITION STABLE TODAY ON 12/06/17 DAY SHIFT SINCE I TOOK THE PT OVER. PT HAS HAD NO C/O PAIN, NO NAUSEA, NO QUESTIONS AND NO CONCERNS. Q2HR TURNS AND REPOSITIONING COMPLETED FOR SKIN BREAKDOWN PREVENTION. NS RUNNING AT 125 ML/HR. BM TODAY. INCONT OF BOTH URINE AND STOOL. POOR APPETITE BUT PT DRANK ALL OF HER ENSURE FROM LUNCH. ENCOURAGED PO INTAKE. HEEL BOOTS IN PLACE. SKIN CARE COMPLETED. ALL WOUNDS AND DRGS C/D/I. NO QUESTIONS AT THIS TIME. CALL LIGHT WITHIN REACH. WILL CONTINUE TO MONITOR.
--- NOTE | 2017-12-06 19:23 | NUR ---
PATIENT ASKED FOR MORE PILLOWS. WE CHANGED HER ABOUT 20 MIN. AGO AND REPOSITIONED HER. ASKED HER IF SHE WANTED ANY DINNER AND SHE SAID NO BUT WE DID GET HER AN ENSURE MILKSHAKE. CHECKED HER AND CHANGED HER EVERY 2 HOURS TODAY.
--- NOTE | 2017-12-06 22:32 | NUR ---
pt resting in bed, eyes closed and respirations even and unlabored. Pt assisted in repositioning with assistance from tayler huggins. no further needs voiced. call light and h20 in reach.
--- NOTE | 2017-12-07 00:55 | NUR ---
Pt assisted in changing attends, pt also repositioned in bed. Call light in reach and pt states she is comfortable. assessment completed.
--- NOTE | 2017-12-07 02:27 | NUR ---
IN TO REPOSITION PT WITH ASSISTANCE FROM SELINA SOTO. CALL LIGHT INR EACHAND PT STATES SHE IS IN POSITION OF COMFORT. IVF CONTINUE TO INFUSE AND PT DENIES NEEDS.
--- NOTE | 2017-12-07 04:35 | NUR ---
IN TO REPOSITION PT IN BED WITH ASSITANCE FROM BRITTANY MARKS. CALL LIGHT IN REACH AND NO FURTHER NEEDS VOICED.
--- NOTE | 2017-12-07 06:07 | NUR ---
PT APPEARED TO SLEEP WELL THIS SHIFT. PT WAS ASSITED IN REPOSITIONING Q2HRS. INCONTINENT OF BM AND URINE. DSG TO COCCYX REMAINS CDI. MAINTENANCE FLUIDS INFUSING AT 125 ML/HR. VSS. ENCOURAGE ENSURES. REOCEPHIN ABX. TOLORATES HEEL PROTECTORS. RENAL DIET.
--- NOTE | 2017-12-07 08:30 | NUR ---
PT CURRENTLY IN BED GETTING BATHED BY 2 CNAS. PT OS FLAT, WITHDRAWN, AGITATED, STATES THAT SHE "WANTS TO BE LEFT ALONE." SHE STATES SHE "WISHES THEY'D HURRY UP WITH HER BATH." PT UNINTERESTED IN EDUCATION. PT A/O TO PERSON AND PLACE BUT DISORIENTED TO TIME WELL FREQUENTLY FORGETFUL. MEDS AND ASSESSMENT COMPLETED. REFUSING BREAKFAST, ENSURES, AND MILKSHAKES DESPITE ENCOURAGEMENT THROUGHOUT THE MORNING AND EDUCATION ON IMPORTANCE OF EATING. INCONT EPISODE OF URINE AND BM AT THIS TIME; CLEAN AND DRY AFTER BATH. REPOSITIONED WITH PILLOW SUPPORT. HEEL BOOTS IN PLACE. SKIN CARE COMPLETED. ALL WOUND DRG C/D/I AND WNL. NS RUNNING AT 125 ML/HR IN LEFT PIV. NS NEW BAG AND TUBING CHANGED. ROOM AIR. NO QUESTIONS OR CONCERNS. CALL LIGHT WITHIN REACH AND FALL PRECAUTIONS IN PLACE. WILL CONTINUE TO MONITOR.
--- NOTE | 2017-12-07 08:49 | NUR ---
patient refused breakfast and meal replacement shake, we did bed bath, she was repositioned prone, she is comfortable
--- NOTE | 2017-12-07 09:25 | NUR ---
ASKED PATIENT IF SHE WANTED ANY BREAKFAST OR SOMETHING TO DRINK AND SHE SAID NO.
--- NOTE | 2017-12-07 10:10 | NUR ---
PT RESTING IN BED. STILL NO C/O PAIN. STILL NOT WANTING ANYTHING TO EAT OR DRINK. WILL CONTINUE TO ENCOURAGE THIS, ESPECIALLY AT LUNCH TIME. REPOSITIONED WITH PILLOW SUPPORT. NO QUESTIONS OR CONCERNS. CALL LIGHT IN REACH. WILL CONTINUE TO MONITOR.
--- NOTE | 2017-12-07 12:05 | NUR ---
PT TURNED AND REPOSITIONED WITH PILLOW SUPPORT. INCONTINENT URINE AND SMALL BM AT THIS TIME. PT CLEANED AND NOW HAS DRY DEPENDS BRIEF ON. PT ENCOURAGED TO EAT OR AT LEAST DRINK ENSURE FOR LUNCH BUT PT STILL REFUSING; PT FLAT, DEPRESSED AND WITHDRAWN. EMOTIONAL SUPPORT GIVEN. I WILL CONTINUE TO ENCOURAGE PT. NO REQUESTS OR CONCERNS. NO C/O PAIN. CALL LIGHT WITHIN REACH AND WILL CONTINUE TO MONITOR.
--- NOTE | 2017-12-07 14:10 | NUR ---
PT TURNED AND REPOSITIONED WITH PILLOW SUPPORT AT THIS TIME. PT STILL HAS NO C/O PAIN. PT REMAINS FLAT AND WITHDRAWN. I ENCOURAGED PT TO EAT SOMETHING AND SHE STILL SHAKES HER HEAD AND REFUSES. PT VERY UNMOTIVATED. I WILL CONTINUE TO ENCOURAGE PT TODAY, WELL TRY AND GET PT UP TO CHAIR WITH LIFT. CALL LIGHT WITHIN REACH. WILL CONTINUE TO MONITOR.
--- NOTE | 2017-12-07 16:22 | NUR ---
PATIENT UP IN CHAIR, BED CHANGED, SHE IS CURRENTLY ASKIKNG FOR A MEAL REPLACEMENT SHAKE.
--- NOTE | 2017-12-07 16:40 | NUR ---
PT UP IN CHAIR AT THIS TIME. PT FLAT AND STATING THAT SHE ALREADY WANTS TO GET BACK INTO BED SOON; IT HASN'T BEEN QUITE AN HOUR. ENCOURAGED PT TO SIT UP OUT OF BED A LITTLE LONGER SINCE SHE'S BEEN IN BED SO MUCH FOR A FEW DAYS. CALL LIGHT WITHIN REACH. WILL CONTINUE TO MONITOR.
--- NOTE | 2017-12-07 17:30 | NUR ---
PT VS AND CONDITION STABLE TODAY ON 12/07/17 DAY SHIFT. PT HAS BEEN COOPERATIVE BUT FLAT, DEPRESSED AND WITHDRAWN. EMOTIONAL SUPPORT PROVIDED BUT PT IS UNINTERESTED IN CONVERSATION AND EDUCATION. PT REFUSED ALL HER MEALS TODAY BUT FINALLY AGREED TO DRINK AN ENSURE THIS EVENING. Q2HR TURNS AND REPOSITIONING COMPLETED WITH PILLOW SUPPORT. BED BATH GIVEN THIS AM BY CNAS. SKIN CARE PROVIDED. ALL WOUNDS WNL WITH C/D/I DRGS. ROOM AIR. NS AT 125 ML/HR. DISORIENTED TO TIME AND DATE TODAY WITH INTERMIT CONFUSION. REORIENTATION NEEDED. INCONT OF URINE AND STOOL TODAY. X3 SOFT, SMALL BMS. NO C/O PAIN TODAY. WITH STEFFEN LIFT, PT GOT UP TO CHAIR FOR ROUGHLY 45 MINUTES THIS EVENING; PT NOW BACK IN BED WITH STEFFEN ASSIST, PT REFUSING TO SIT UP IN CHAIR. WHEN I TRIED GETTING TO THE REASON TO WHY SHE WANTS TO BE IN BED SHE JUST KEPT REPEATING "BECAUSE I WANT TO." PAIN AND DISCOMFORT NOT A REASON. PT HAS NO FURTHER QUESTIONS OR CONCERNS. CALL LIGHT WITHIN REACH. WILL CONTINUE TO MONITOR.
--- NOTE | 2017-12-07 18:09 | NUR ---
DISCUSSED CALCIUM LEVEL WITH DR. CANDELARIA AND DR. CLEMENTE.
--- NOTE | 2017-12-07 19:39 | NUR ---
PATIENT SET UP IN CHAIR FOR ABOUT 40MIN. TODAY THAN AROUND 1700 PATIENT WANTED TO GO BACK TO BED. SO THE OTHER SKIN SPECIALIST AND I HOYERED HER BACK TO BED AND CHANGED HER AND REPOSITIONED. GOT WARM BLANKETS.
--- NOTE | 2017-12-07 20:50 | NUR ---
PT RESTING IN BED EYES CLOSED AND RESPIRATIONS EVEN AND UNLABORED. ASSESSMENT COMPLETED AND PT ASSISTED WITH TURNING AND ATTENDS CHANGED WITH ASSISTANCE FROM BRITTANY REZA. CALL LIGHT AND H20 IN REACH. PT GIVEN ENSURE AND DRINKS ABOUT 40% OF STRAWBERRY ENSURE WITH SOME ENCOURAGEMENT. PT STATES "TURN OFF THE LIGHTS AND LET ME SLEEP". LIGHTS OFF, NO FURTHER REQUESTS VOICED.
--- NOTE | 2017-12-08 01:18 | NUR ---
PT RESTING IN BED APPEARS TO BE SLEEPING COMFORTABLY. PT ALERT TO VOICE, ASSESSMENT COMPLETED. PT PROVIDED WITH WARM BLANKET PER REQUEST. CALL LIGHT AND ICE WATER IN REACH.
--- NOTE | 2017-12-08 03:26 | NUR ---
PT PROVIDED WITH SPRITE SODA PER HER REQUEST. CALL LIGHT IN REACH NO FURTHER NEEDS VERBALIZED.
--- NOTE | 2017-12-08 05:10 | NUR ---
PT RESTING IN BED, EYES CLOSED AND RESPIRATIONS EVEN AND UNLABORED. PT ALERT TO VOICE. ASSESSMENT COMPLETED. CALL LIGHT AND H20 IN REACH. NO NEEDS VOICED.
--- NOTE | 2017-12-08 07:00 | NUR ---
PT APPEARED TO HAVE SLEPT WELL THROUGH THE NIGHT. Q2 HR TURNS. ROOM AIR. VSS, INCONTINENT OF URINE. ALERT AND ORIENTED TO PERSON AND PLACE. NS CONTINUES AT 125ML/HR. TOLORATES ENSURES WELL.
--- NOTE | 2017-12-08 08:43 | NUR ---
PATIENT IN BED. PATIENT IS CONFUSED AND DID NOT WANT BREAKFAST. CALL LIGHT IN REACH.
--- NOTE | 2017-12-08 09:07 | NUR ---
CHANGE OF SHIFT: ROUNDED ON PATIENT FOR CHANGE OF SHIFT REPORT, RECIEVED BY AYANA MOSES. PATIENT WAS SLEEPING COMFORTABLY IN BED. WHITE BOARD UPDATED. CALL LIGHT WITHIN REACH. NO COMPLAINTS OR NEEDS AT THIS TIME. 0913: ROUNDED ON PATIENT FOR MORNING MEDICATIONS. IV LEAKING, ONE ATTEMPT WAS MADE BY TOM MOSES, UNSUCCESSFUL. [place] MOSES RADIO INSTALLER AUTOMOBILE IS TO ATTEMPT A SECOND TIME, SUCCESSFUL. IV FLUIDS INFUSING AT 125. PATIENT APPEARED TO BE DISORIENDTED TO SELF, STATING "I DON'T KNOW MY NAME", BUT EVENTUALLY WAS ABLE TO REMEMBER NAME. PERSONAL WHEELCHAIR WAS RETURNED.
--- NOTE | 2017-12-08 09:11 | NUR ---
Got patients wheelchair from up front, there was some miscommunication about whose wheelchair it was upon admission. Skye SOTO was able to confirm that it was her wheelchair. Pt. also verified that it was hers.
--- NOTE | 2017-12-08 09:49 | NUR ---
PATIENT IN BED RESTING WITH EYES CLOSED. FRESHWATER GIVEN. CALL LIGHT IN REACH. NO FURTHER NEEDS AT THIS TIME.
--- NOTE | 2017-12-08 11:35 | NUR ---
TURNED PATIENT TOWARD LEFT SIDE FACING WINDOW. STOOL IN ATTENDS. CHANGED ATTENDS AND CHUCKS. ALLEVYN ON COCCYX CHANGED. SOME DRAINAGE NOTED ON PREVIOUS DRESSING.
--- NOTE | 2017-12-08 11:37 | NUR ---
THIS HANDBAG DESIGNER WITH THE HELP OF JOSUÉ SANTOS AND JOSUÉ MENJIVAR TURNED PATIENT AND DID LUL CARE. CALL LIGHT IS IN REACH. NO FURTHER NEEDS AT THIS TIME.
--- NOTE | 2017-12-08 13:35 | NUR ---
ROUNDED ON PATIENT, SLEEPING COMFORTABLY IN BED. DECREASED RATE OF IV FLUIDS TO 50 ML/HR PER MD ORDERS. ENCOURAGED FLUID INTAKE, PATIENT EXPRESSED AND DEMONSTRATED UNDERSTANDING. NO COMPLAINTS OF PAIN. CALL LIGHT WITHIN REACH. WILL CONTINUE TO MONITOR.
--- NOTE | 2017-12-08 13:58 | NUR ---
PATIENT IN BED RESTING WITH EYES CLOSED. PATIENT TURNED ONTO RIGHT SIDE. CALL LIGHT IN REACH. NO FURTHER NEEDS AT THIS TIME.
--- NOTE | 2017-12-08 14:56 | NUR ---
ROUNDED ON PATIENT FOR AFTERNOON ASSESSMENT, RESTING COMFORTABLY IN BED. DENIES HAVING AN APPETITE AT THIS TIME. DENISES WANTING WATER WHEN ASKED , BUT WILL SIP OCCASSIONALLY. ASSESSED USE OF IS, PATIENT DEMONSTRATED USE AND UNDERSTANDING. NO COMPLAINTS OF PAIN. POSSESSIONS AT BEDSIDE.
--- NOTE | 2017-12-08 16:02 | NUR ---
PATIENT TURNED TO LAY ON BACK. CALL LIGHT IN REACH. NO FURTHER NEEDS AT THIS TIME.
--- NOTE | 2017-12-08 18:30 | NUR ---
PATIENT IS A FULL ASSIST WITH STEFFEN. RENAL DIET. DISORIENTED TO TIME AND OCCASSIONALLY SELF. COOPERATIVE WITH FLAT AFFECT. BM X 4 TODAY. Q2HR TURNS WITH REPOSITIONING IN BED. FLUIDS WERE ENCOURAGED, PATIENT SIPPED WATER WHEN PROMPTED. USED INCENTIVE SPIROMETER WHEN PROMPTED AND DEMONSTRATED UNDERSTANDING. NS INFUSING AT 50 ML/HR. ROCEPHIN ADMINISTERED AT 1750. NO COMPLAINTS OF PAIN. DRESSING ON COCCYX CHANGED TODAY. KEFLEX SCHEDULED FOR 0900 TOMORROW (12/09/17).
--- NOTE | 2017-12-08 18:37 | NUR ---
PATIENT IN BED RESTING. RN IN ROOM. FRESH WATER GIVEN. CALL LIGHT IN REACH. NO FURTHER NEEDS AT THIS TIME.
--- NOTE | 2017-12-08 20:20 | NUR ---
PT RESTING IN BED APPEARS TO BE SLEEPING COMFORTABLY. PT ALERT TO VOICE AND ASSESSMENT COMPLETED. CALL LIGHT IN REACH AND PT PROVIDED WITH FRESH ICE WATER AND DRINKS A SMALL AMOUNT. STATES "LEAVE IT THERE AND I'LL DRINK IT IN A WHILE". CALL LIGHT/H20 IN REACH, NO FURTHER CONCERNS/REQUESTS VOICED.
--- NOTE | 2017-12-08 23:37 | NUR ---
PT RESTING IN BED, EYES CLOSED AND RESPIRATIONS EVEN AND UNLABORED. PT APPEARS TO BE SLEEPING COMFORTABLY. CALL LIGHT/H20 IN REACH.
--- NOTE | 2017-12-09 03:07 | NUR ---
PT HAS APPEARED TO BE SLEEPING COMFORTABLY. PT ALERT TO VOICE, ASSESSMENT COMPLETED. PT DENIES NEEDS AT THIS TIME. PT WAS OFFERED WATER, ENSURE, JUICE/SODA BUT PT DECLINES. CALL LIGHT AND H20 IN REACH. PT CONTINUES TO BE REPOSITIONED Q2HRS WITH ASSISTANCE FROM RIPENING ROOM OPERATOR'S.
--- NOTE | 2017-12-09 05:35 | NUR ---
PT ASSISTED IN REPOSITIONING IN BED, PT DECLINES ANY FURTHER NEEDS AT THIS TIME. CALL LIGHT AND H20 IN REACH.
--- NOTE | 2017-12-09 06:41 | NUR ---
PT APEARED TO SLEEP COMFORTABLY MOST OF NIGHT. PT HAS BEEN ALERT AND ORIENTED TO PERSON AND PLACE. PT HAS HAD DECREASED APPETITE AND HAS DRANK VERY LITTLE THROUGH THE NIGHT, REFUSING ENSURES,H20,SODA/JUICE ETC. PT IS TOTAL ASSIT WITH CHANGING Q2HRS AND REQUIRES USE OF STEFFEN LIFT WHEN TRANFERING TO CHAIR OR WC. IV NS CONTINUES TO INFUSE AT 50MLS/HR TO IV IN LEFT FA. PT HAS MULTIPLE BRUISES SCATTERED TO ALL EXTREMITIES. SKIN IS VERY SENSITIVE. ALLEVYN DSG CDI TO COCCYX. PT WILL LIKELY BE DISCHARGED TO [facility] ONCE THEY CAN SECURE A LIFT TO TRANSFER PATIENT.
--- NOTE | 2017-12-09 07:57 | NUR ---
REPORT RECIEVED FROM JOSUÉ GONZALEZ. PT ASLEEP IN BED, OPENED EYES SLIGHTLY WHEN SPOKE TO. IV INFUSING AT 50.
--- NOTE | 2017-12-09 08:54 | NUR ---
PATIENT IN BED RESTING WITH EYES CLOSED. PATIENT GIVEN A BEDBATH BY THIS SILK CREPE MACHINE OPERATOR AND BRITTANY CABRAL. LUL CARE DONE. LINENS CHANGED. NEW GOWN PROVIDED. PATIENT HAD A SKIN TARE, RN NOTIFIED. PATIENT COMPLAINED OF PAIN IN LEGS, RN NOTIFIED. PATIENT POSITIONED ON BACK. CALL LIGHT IN REACH. NO FURTHER NEEDS AT THIS TIME.
--- NOTE | 2017-12-09 10:12 | NUR ---
PATIENT RESTING IN BED EYES CLOSED.CALL LIGHT IN REACHED NO FURTHER NEED AT THIS TIME
--- NOTE | 2017-12-09 11:45 | NUR ---
REMOVED LEAKING IV FROM LEFT HAND. PT TOLERATED OK. USED ADHESIVE TAPE REMOVER PADS LESSEN CHANCE OF HARMING HER ALREADY DELICATE SKIN. PT WOULD NOW LIKE TO REST. CALL LIGHT IN REACH.
--- NOTE | 2017-12-09 12:32 | NUR ---
SPOKE WITH DANNY SHELBY AT [facility] AND SHE STATES THAT SHE DID THE EVAL FOR THE PT TO RECIEVE THE SIT TO STAND AND SINCE THIS TIME THE PT IS VERY TEARFUL WHEN THE STAFF EVEN MENTION THEY ARE GOING TO BRING IN THE SIT TO STAND, SHE STATES THEY HAVE BEEN USING THE STEFFEN TO MOVE HER AROUND. TALKED WITH OJAN FROM [facility] AND SHE STATED THEY ARE AWAITING THE SIT TO STAND FROM [facility] AND SHE STATED THEY WERE AWAITING DR NOTES FROM DR BAIN AT THE CLINIC. I CALLED THE CLINIC AND TALKED WITH BETTINA AND SHE FAXED CHART NOTES TO [facility].
--- NOTE | 2017-12-09 13:04 | NUR ---
DHRUV IN BED RESTING. THIS COUNCILLOR ABORIGINAL LAND COUNCIL AND COUNCILLOR ABORIGINAL LAND COUNCILNaila CABRAL DID LUL CARE AND TURNED PATIENT ONTO LEFT SIDE. GAVE WARM BLANKETS. CALL LIGHT IN REACH. NO FURTHER NEEDS AT THIS TIME.
--- NOTE | 2017-12-09 13:13 | NUR ---
ROUNDED ON PATIENT RESTING COMFORATABLY IN BED FOR MEDICATION ADMINISTRATION. NO COMPLAINTS OF PAIN. CALL LIGHT WITHIN REACH.
--- NOTE | 2017-12-09 13:58 | NUR ---
PT CALLED FOR WARM BLANKET. ROOM DOES FEEL COLD BUT HEAT IS TURNED UP.
--- NOTE | 2017-12-09 14:16 | NUR ---
PT RESTING IN BED, OPENED HER EYES AND INVITED ME IN. I ASKED HER HOW SHE WAS DOING TODAY-STANDARD ANSWER, "I'M TIRED". SHE DID SAY THAT SHE WAS COLD AND WOULD LIKE IT IF I COULD DO SOMETHING ABOUT THAT. HAD PRAYER WITH PT, SHE FELL ASLEEP. MENTIONED TO HER RN AMBERLY AND SHE ATTENDED TO PT. WILL FOLLOW NEEDED
--- NOTE | 2017-12-09 14:16 | NUR ---
DHRUV RESTING.CALL LIGHT WITH IN REACH. NO OTHERE NOTES NEED AT THIS TIME
--- NOTE | 2017-12-09 15:43 | NUR ---
PT CLEANED AND HOYERED TO CHAIR. BLINDS OPENED AND LIGHTS ON. EXPLAINED THAT SHE NEEDS TO TRY AND STAY AWAKE FOR SOME PORTION OF THE DAY.
--- NOTE | 2017-12-09 16:28 | NUR ---
AT [address] CONDUCTOR, BRITTANY CABRAL, BRITTANY PABON, BRITTANY POLANCO, JOSUÉ GAMING, AND JOSUÉ MENJIVAR DID LUL CARE AND TRANSFERED PATIENT TO CHAIR WITH STEFFEN. PATIENT CONTINUED TO CALL OVER AND OVER TO GO BACK TO BED SO AT 1620 JOSUÉ GAMING SAID TO PUT HER BACK IN BED. THIS ROAD CONDUCTOR, BRITTANY CABRAL, AND BRITTANY POLANCO PUT PATIENT BACK TO BED WITH STEFFEN. CALL LIGHT IS IN REACH. PATIENT DENIES ANY FURTHER NEEDS AT THIS TIME.
--- NOTE | 2017-12-09 16:51 | NUR ---
ROUNDED ON PATIENT FOR MEDICATION ADMINISTRATION. RESTING IN BED. STATES THAT ROOM IS COLD AND WOULD LIKE WARM BLANKETS. HEAT HAS BEEN TURNED UP IN ROOM AND WARM BLANKETS PROVIDED. NO MORE COMPLAINTS AT THIS TIME.
--- NOTE | 2017-12-09 17:43 | NUR ---
PATIENT RESTING IN BED CALL LIGHT IN REACH. NO FURTHER NEEDS AT THIS TIME.
--- NOTE | 2017-12-09 18:33 | NUR ---
PATIENT IS DISORIENTED TO TIME AND OCCASIONALLY SELF. TOTAL ASSIST/STEFFEN LIFT. UP TO CHAIR TODAY. ROOM AIR. WORKED WITH PT TODAY. ROOM AIR. LEFT PERIPHERAL IV LEAKED, NEW IV STARTED IN RIGHT UPPER BREAST. RENAL DIET. REFUSED MEALS AND PO FLUIDS. IV FLUIDS RUNNING AT 50 ML/HR. PLAN TO DISCHARGED TO [facility] TOMORROW.
--- NOTE | 2017-12-09 19:28 | NUR ---
RECEIVED REPORT FROM JOSUÉ MENJIVAR. PT SLEEPING IN BED. IVF INFUSING WNL. ALLEVYN ON COCCYX AND ARM. Q2 HOUR TURNS.
--- NOTE | 2017-12-09 21:40 | NUR ---
PT GIVEN PM MEDICATIONS. REFUSED TO COOPERATE AND SWALLOW MEDS. PT SPIT SOME MEDS OUT AND SWALLOWED UNKNOWN AMOUNT. PT STATES, "GET THE HECK OUT OF MY ROOM". BED ALARM ON. WATER AT BEDSIDE.
--- NOTE | 2017-12-09 23:13 | NUR ---
ASSESSMENT COMPLETE. 2+ PITTING EDEMA IN BILATERAL LOWER EXTREMITIES. MULTIPLE BRUISES ON UPPER AND LOWER EXTREMITIES. IVF INFUSING WNL, IV FLUSHES AND BRISK BLOOD RETURN. ALLEVYN ON LEFT ARM AND COCCYX IS IN PLACE. ATTENDS CHANGED WITH BM AND VOID. PT AWAKE BUT DID NOT COMMUNICATE WITH STAFF WHILE IN ROOM EXCEPT FOR SAYING "OUCH" WHILE BEING CHANGED. PT TURNED TO LEFT SIDE USING STEFFEN. PT DENIES NEEDS AT THIS TIME, CALL LIGHT IN REACH.
--- NOTE | 2017-12-10 01:18 | NUR ---
PT SLEEPING IN BED. BREATHING EVEN AND UNLABORED. HEEL PROTECTORS ON.
--- NOTE | 2017-12-10 02:40 | NUR ---
IN ROOM TO TURN PT. PT TURNED TO RIGHT SIDE, ATTENDS CLEANED BY BRITTANY JOINER. ASSESSMENT COMPLETED. 2+ PITTING EDEMA IN BILATERAL LOWER EXTREMITIES. MULTIPLE BRUISES THROUGHOUT ENTIRE BODY AND EXTREMITIES. CALL LIGHT IN REACH.
--- NOTE | 2017-12-10 05:20 | NUR ---
IN ROOM TO TURN PT, PT SLEEPING, EASILY TO AWAKE. PT DID NOT COMMUNICATE WITH STAFF. TURNED TO LEFT SIDE. ATTENDS DRY AND CLEAN. BED ALARM ON, CALL LIGHT IN REACH.
--- NOTE | 2017-12-10 05:54 | NUR ---
PT SLEPT MOST OF NIGHT. PT UNCOOPERATIVE WITH MEDICATIONS AT START OF SHIFT, PLACED IN HER MOUTH BUT WOULD NOT SWALLOW THEM OR SPIT THEM OUT. Q2H TURNS WITH ATTENDS CHANGE, INCONTINENT OF URINE AND STOOL. STEFFEN AND GABBIE ASSIST WHEN TRANSFERRING PT. 2+ PITTING EDEMA IN BILATERAL LOWER EXTREMITIES. NS INFUSING WNL. ALLEVYN ON COCCYX AND ELBOW INTACT. HEEL PROTECTORS ON, LEGS ELEVATED. PT NON-COMMUNICATIVE THROUGHOUT SHIFT WITH NURSING STAFF.
--- NOTE | 2017-12-10 06:22 | NUR ---
V/S I&O DONE AND CHARTED. PATIENT REPOSITIONED.
--- NOTE | 2017-12-10 08:40 | NUR ---
PT FLAT, DEPRESSED AND WITHDRAWN AT THIS TIME. MOST OF ASSESSMENT COMPLETED AT THIS TIME BUT PT REFUSING TO ACKNOWLEDGE MY QUESTIONS, SO UNABLE TO ASSESS ORIENTATION AT THIS TIME. PT AGREED TO TAKE MEDS AT THIS TIME HOWEVER, WITH MUCH ENCOURAGEMENT. NO C/O PAIN OR DISCOMFORT, EXCEPT SHE HAS PAIN IN HER LEGS WITH TOUCH/MOVEMENT. HEELS BOOTS IN PLACE. Q2HR REPOSITIONG AND TURNS. REPOSITIONED AT THIS TIME. BRIEF DRY AT THIS TIME. ALL DRGS C/D/I. ALL WOUNDS STABLE. NS RUNNING AT 50 ML/HR. CALL LIGHT WITHIN REACH. FALL PRECAUTIONS IN PLACE. WILL CONTINUE TO MONITOR.
--- NOTE | 2017-12-10 09:47 | NUR ---
REPORTS FROM NURSING STAFF STATE PT IS NOT EATING, DRINKING, OR TAKING HER MEDS, PT IS REFUSING TO PARTICIPATE EVEN IN CONVERSATIONS. I WENT IN AND TALKED WITH HER THIS AM AND EXPLAINED THAT SHE NEEDS TO TALK TO US SO WE CAN HELP HER. PT JUST STATES "CAN'T YOU JUST LEAVE ME ALONE" AND AGAINA CLOSES HER EYES. WE TALKED ABOUT HER POSS GOING TO A SNF- SHE JUST SHAKES HER HEAD AND CLOSES HER EYES AND PUT HER HEAD BACK DOWN. SHE WILL NOT RESPOND TO QUESTIONS EXCEPT WITH A SHAKE OF HER HEAD WITH HER EYES CLOSED. WE TALKED ABOUT HER GOING TO A SNF IF [facility] IS UNABLE TO TAKE HER BECAUSE OF THE FACT THAT SHE WILL NOT RESPOND. SHE JUST SHAKES HER HEAD AGAIN. JOAN FROM [facility] CALLED AND STATES SHE WILL COME AND TALK WITH HER AND SEE IF SHE CAN GET HER TO RESPOND. I CALLED LIZETT @ [phone] AND TALKED WITH HER AND SHE STATED THAT JOAN HAD JUST CALLED HER AND SHE WILL BE UP HERE IN ABOUT A 1/2 HOUR.
--- NOTE | 2017-12-10 10:30 | NUR ---
JOAN FROM [facility] WAS HERE AND STATED THAT SHE COULD NOT GET THE PT TO AGREE TO COOPERATE, PT DID RESPOND TO A COUPLE OF JOKES THAT JOAN MADE WITH A LITTLE GIGLOBO FRANCO STATED BUT OTHER THAN THAT SHE WOULD NOT RESPOND TO HER EITHER. AT THIS POINT JOAN STATES SHE CANNOT TAKE PT TO HER FACILITY IF SHE IS NOT WILLING TO PARTICIPATE. I AGAIN TALKED WITH DR CLEMENTE ABOUT THIS PT AND THAT MAYBE SOMETHING ELSE IS GOING ON WITH HER AND HE AGREED TO AGAIN SEE HER, POSS ORDER A CT OF HEAD.
--- NOTE | 2017-12-10 10:42 | NUR ---
PT SITITNG UP IN BED AT THIS TIME; DROWSY AND DOSING IN AND OUT OF SLEEP; I EDUCATED PT AGAIN ON IMPORTANCE OF GETTING OUT OF BED AND I TRIED TO OFFER HER THE CHAIR BUT SHE REFUSED, WANTING TO STAY IN BED. I WILL TRY AGAIN IN A WHILE. NO C/O PAIN. REFUSING TO DRINK ANYTHING AFTER I JUST OFFERED. WILL CONTINUE TO ENCOURAGE PO INTAKE. PT REPOSITIONED WITH PILLOWS BY CNAS WHEN THEY CLEANED UP PT INCONTINENT URINE AND BM. NO FURTHER NEEDS AT THIS TIME. CALL LIGHT WITHIN REACH. WILL CONTINUE TO MONITOR.
--- NOTE | 2017-12-10 11:00 | NUR ---
SPOKE WITH PATIENT IN ROOM. PATIENT CONSISTENTLY DOESN'T ANSWER QUESTIONS EXCEPT TO SAY "PUT MY HEAD DOWN" AND "JUST LEAVE ME ALONE". TRIED TO ASSESS IF PATIENT IS DEPRESSED, SHAKES HER HEAD NO. TRIED TO DISCUSS THAT SHE SEEMS TO BE GIVING UP. PATIENT KEEPS ASKING TO "PUT MY HEAD DOWN". PATIENT SHOOK HEAD NO TO PAIN. PATIENT MAKES EYE CONTACT AT TIMES. DISCUSSED THAT SHE MAY NEED TO GO TO [facility] IF SHE DOESN'T WANT TO PARTICIPATE IN CARE. PATIENT SHOOK HEAD NO. EXPLAINED SHE WILL NEED TO BE DISCHARGED AND AGAIN PATIENT STATES "LEAVE ME ALONE". EXPLAINED THAT CASE MANAGEMENT WILL NEED TO CONTACT HER FAMILY. PATIENT DID NOT RESPOND TO THIS. DENIES NEEDING A DRINK. ENCOURAGED PATIENT TO EAT, TAKE FLUIDS AND PARTICIPATE WITH THERAPY.
--- NOTE | 2017-12-10 11:10 | NUR ---
CARE CONFERENCE PRESENT: PT, CHANGECE LIZETT STAFF: DR CLEMENTE AND MYSELF CASE MANAGEMENT, AND RN PT ANGÉLICA PHOENIX IS HERE AND WENT IN ROOM WITH DR CLEMENTE AND MYSELF, PT WOULD NOT TALK TO HER. LIZETT ASKED IF WE WOULD LEAVE THE ROOM FOR A MINUTE AND GIVE THEM SOME PRIVACY, THIS WAS DONE. LIZETT CAME OUT A FEW MINUTES LATER AND STATES THE PT IS WILLING TO HAVE SOME FOOD AND DRINK AND STATES TO MYSELF AND HER NIECE THAT SHE IS NOT WILLING TO GO ANYWHERE TODAY BUT WILL GO TO [facility] TOMORROW. I DID INFORM PT AND NIECE THAT THERE IS A CHANCE THAT BECAUSE THERE IS NO MEDICAL NECESSITY FOR HER TO BE HERE THAT MEDICARE MAY REFUSE TO PAY FOR THE DAY AND THEN THE PT WOULD BE CHARGED FOR IT, IF THIS HAPPENED. PT AND NIECE STATE UNDERSTANDING OF THIS
--- NOTE | 2017-12-10 11:29 | NUR ---
PT'S NIECE AT BEDSIDE AT THIS TIME TALKING TO PT, TRYING TO ENCOURAGE PT TO EAT, DRINK, AND COOPERATIVE IN ATTEMPTS TO HELP PT GET TO HEAVENLY CARE. WILL FOLLOW UP.
--- NOTE | 2017-12-10 12:33 | NUR ---
PT'S NIECE CARLOS PULLED THIS RN ASIDE AND STATED THAT THE PT IS "WIDE AWAKE AND TALKING TO ME NOW." SHE ALSO STATED THAT THE PT DRANK HER ENTIRE MILKSHAKE, DRANK HER ENTIRE HOT CHOCOLATE, AND ATE 3/4 OF A Q[place]ADILLA TRIANGLE. I JUST WENT IN WITH CARLOS TO GIVE PT HER TUMS AND UNLIKE THIS MORNING, IT TOOK NO COAXING AND ENCOURAGEMENT. SHE IS WIDE AWAKE, SHE IS ANSWERING MY QUESTIONS, AND BEING COMPLIANT AT THIS TIME. BOBBI WITH CASE MANAGEMENT IN PT'S ROOM RIGHT NOW TALKING TO PT AND CARLOS IN REGARDS TO DC PLAN. WILL FOLLOW UP AND CONTINUE TO MONITOR.
--- NOTE | 2017-12-10 13:22 | NUR ---
PT SITTING UP IN BED; BRIEF JUST CHANGED BY CNAS, REPOSITIONED, PT HAS NO C/O PAIN AT THIS TIME. NO OTHER REQUESTS OR CONCERNS. CALL LIGHT WITHIN REACH. FALL PRECAUTIONS IN PLACE. WILL CONTINUE TO MONITOR.
--- NOTE | 2017-12-10 14:25 | NUR ---
PT SLEEPING IN BED RESTING COMFORTABLY. NO C/O PAIN AT THIS TIME. TURNS Q2HR BEING REPEATED. NO QUESTIONS OR CONCERNS. ASSESSMENT COMPLETED. CALL LIGHT WITHIN REACH. WILL CONTINUE TO MONITOR.
--- NOTE | 2017-12-10 17:56 | NUR ---
PT VS AND CONDITION STABLE TODAY ON 12/10/17 DAY SHIFT. PT HAS HAD NO C/O PAIN OR DISCOMFORT TODAY, EXCEPT FOR WHEN TOUCHING HER LEGS WHICH ARE SENSITIVE AND TENDER TO TOUCH. PT STARTED THE SHIFT OUT NONCOMPLIANT, REFUSING TO ANSWER ANY QUESTIONS AND BARELY LOOK AT THIS RN. CASE MANAGEMENT HAD THE SAME INTERACTION WHEN SHE TRIED SPEAKING TO PT. [facility] TO [facility]AK TO PT WELL TO TELL HER SHE WOULDN'T BE ACCEPTED IF SHE KEPT REFUSING TO EAT, DRINK, TAKE MEDS. PT'S NIECE WAS CALLED AN ATTEMPT TO GET THROUGH TO PT THE SEVERITY OF SITUATION. AFTER THIS, PT AGREED TO COMPLY AND WORK ON EATING AND DRINKING SOME. SHE ALSO AGREED TO LEAVE TOMORROW AM ON 12/11/17. PT HAS SINCE BEEN COOPERATIVE WITH THIS RN; TAKING MEDD, DRINKING AND TAKING BITES OF MEALS. PT STILL QUITE IRRITABLE WITH STAFF WHEN WE TURN AND REPOSITION HER Q2HR BUT COMPLIES. PT IS INCONT OF URINE AND STOOL AND NEEDS CHANGING ROUGHLY Q2 HRS WITH TURNS AND REPOSITIONING. NS RUNNING AT 50 ML/HR. ROOM AIR. COCCYX DRG CHANGED TODAY AND IS C/D/I. ALL WOUNDS WNL. PLAN IS FOR PT TO TRANSFER TOMORROW AM. CURRENTLY SHE IS IN BED WITHOUT ANY QUESTIONS OR CONCERNS. CONTINUING TO REPOSITION. CALL LIGHT JOSE R LEVIN. FALL PRECAUTIONS IN PLACE. WILL CONTINUE TO MONITOR.
--- NOTE | 2017-12-10 19:25 | NUR ---
RECEIVED REPORT FROM JOSUÉ LAFLEUR. PT SLEEPING IN BED. BREATHING UNLABORED. IVF INFUSING WNL. BED ALARM ON AND CALL LIGHT IN REACH.
--- NOTE | 2017-12-10 21:35 | NUR ---
ROUNDED CHARGE. PATIENT IS RESTING IN BED WITH EYES CLOSED, RR 17. CALL LIGHT IN REACH.
--- NOTE | 2017-12-10 22:25 | NUR ---
ASSESSMENT COMPLETE. WITH ENCOURAGEMENT, PT SWALLOWED MEDICATIONS. IV FLUSHED, FLUIDS INFUSING WNL. ALLEVYN INTACT ON COCCYX AND LEFT ARM. ATTENDS AND CHUCKS CHANGED, VOID X1. PT TURNED TO LEFT SIDE WITH STEFFEN LIFT. 2+ EDEMA IN BILATERAL LOWER EXTREMITIES. BRUISES THROUGHOUT BODY. BED ALARM ON AND CALL LIGHT IN REACH.
--- NOTE | 2017-12-11 01:18 | NUR ---
IN ROOM TO TURN PT, TURNED TO LEFT SIDE. ATTENDS CHANGED, VOID X1. PT WAS COOPERATIVE, AWAKE, EYES OPEN, AND WAS ABLE TO MOVE EACH LEG. PT GIVEN DRINKS OF WATER REQUESTED. BED ALARM ON, HEEL PROTECTORS IN PLACE, CALL LIGHT IN REACH.
--- NOTE | 2017-12-11 03:51 | NUR ---
ASSESSMENT COMPLETE. 2+ PITTING EDEMA IN BILATERAL LOWER EXTREMITIES. PT TURNED TO RIGHT SIDE, ATTENDS CLEAN AND DRY. HEEL PROTECTORS ON, LEGS ELEVATED. CALL LIGHT IN REACH, BED ALARM ON.
--- NOTE | 2017-12-11 05:41 | NUR ---
PT SLEPT THROUGH SHIFT. Q2H TURNS AND ATTENDS CHANGES. COCCYX AND LEFT ARM ALLEVYN INTACT. IVF INFUSING WNL. STEFFEN LIFT TO TURN PT. TOOK MEDICATIONS WITH ENCOURAGEMENT. HEEL PROTECTORS AND BED ALARM ON.
--- NOTE | 2017-12-11 06:50 | NUR ---
IN ROOM TO TURN PT TO LEFT SIDE. ATTENDS DRY AND CLEAN. BED ALARM ON, CALL LIGHT IN REACH.
--- NOTE | 2017-12-11 09:10 | NUR ---
RECEIVED REPORT FROM SENIOR JAVA PROGRAMMER ANALYST RN. PT APPEARS TO BE SLEEPING. NOT REALLY ANSWERING QUESTIONS. ONLY OPENS EYES BREIFLY. NS AT 50ML/HR. CALL LIGHT IN REACH.PILLOWS UNDER LEGS AND RIGHT AND LEFT SIDE.
--- NOTE | 2017-12-11 10:50 | NUR ---
3PA TO CHANGE ATTENDS. PT NOT COOPERTAIVE. ASSISTED WITH DRESSING FOR DISCHARGE. PT OOB TO WHEELCHAIR. DENIES FURTHER NEEDS. IV DC'D.
== END 2017-12-11 11:00 | disposition home or self-care (01) | DRG 682 ==
LOC: CCU 17:04 → MS 17:04
PROVIDERS: ADMIT Internal Medicine
DX: N17.9 Acute kidney failure, unspecified (principal); G93.40 Encephalopathy, unspecified; N39.0 Urinary tract infection, site not specified; B96.20 Unspecified Escherichia coli [E. coli] as the cause of diseases classified elsewhere; I12.9 Hypertensive chronic kidney disease with stage 1 through stage 4 chronic kidney disease, or unspecified chronic kidney disease; N18.3 Chronic kidney disease, stage 3 (moderate); E78.00 Pure hypercholesterolemia, unspecified; F32.9 Major depressive disorder, single episode, unspecified; Z79.899 Other long term (current) drug therapy; Z87.891 Personal history of nicotine dependence; Z88.1 Allergy status to other antibiotic agents; Z88.5 Allergy status to narcotic agent; Z88.0 Allergy status to penicillin; Z88.2 Allergy status to sulfonamides; Z88.8 Allergy status to other drugs, medicaments and biological substances
CPT/HCPCS: 36415; 51798; 80048; 80053; 82140; 82803; 85025; 94762; 97110; 97163; 97166; 97535; J0696; J7030

== ENCOUNTER 2018-06-11 12:08 | Observation (INO) | payer MEDICARE, OTHER ==
[~2018-06-11] VITALS: Ht 154.9 cm; Wt 87.8 kg
[~2018-06-11 12:08] MED LIST changes: +FINACEA50 GM TOP; +MYRBETRIQ25 MG PO
--- NOTE | 2018-06-11 14:56 | NUR ---
1345: PT ARRIVED VIA HER WC WITH HER NIECE A DIRECT ADMIT. PT HELPPED TO BED WITH 2 PEOPLE AND THE USE OF THE STEFFEN LIFT. PT TOLERATED THE MOVE WELL AND STATES SHE IS COMFORTABLE AT THIS TIME.
--- NOTE | 2018-06-11 15:53 | NUR ---
Dr Ledezma notified of the recent lab results.
--- NOTE | 2018-06-11 16:25 | NUR ---
Pt resting in bed with no complaints at this time. commercial hvac service technician at the bedside to do the ordered EKG.
[2018-06-11] MEDS ORDERED: FUROSEMIDE20 MG PO (16:32)
[2018-06-11] MEDS ORDERED: MULTI-VITAMIN1 EACH PO (16:33)
[2018-06-11] MEDS ORDERED: METOPROLOL SUCC25 MG PO (16:33)
[2018-06-11] MEDS ORDERED: OXYBUTYNIN CHLOR5 MG PO (16:35)
[2018-06-11] MEDS ORDERED: SPIRONOLACTONE50 MG PO (16:36)
--- NOTE | 2018-06-11 16:36 | NUR ---
Dr Ledezma at the bedside speaking with the pt.
[2018-06-11] MEDS ORDERED: ALLOPURINOL100 MG PO (16:37)
[2018-06-11] MEDS ORDERED: PREPARATION H C26 GM PR (16:48)
[2018-06-11] MEDS ORDERED: MIDODRINE HCL5 MG PO (16:49)
[2018-06-11] MEDS ORDERED: [UNRECOGNIZED DRUG - OTHER] TOP (16:51)
[2018-06-11] MEDS ORDERED: MILK OF MA400 MG/5 M PO (16:52)
[2018-06-11] MEDS ORDERED: ANTI-DIARRHEA2 MG PO (16:54)
[2018-06-11] MEDS ORDERED: VISINE DRY EYE15 ML OP (16:56)
[2018-06-11] MEDS ORDERED: FLONASE ALLERG9.9 ML NAS (16:58)
--- NOTE | 2018-06-11 17:00 | NUR ---
MED REC COMPLETE
[2018-06-11] MEDS ORDERED: FLUTICASONE PRO16 GM NAS (17:02)
--- NOTE | 2018-06-11 17:14 | NUR ---
1700: nguyen placed with the help of another RN. Nguyen draining cloudy yellow urine with a large amount of noted sediment. Dr Ledezma notified and ua was sent to the lab as ordered.
--- NOTE | 2018-06-11 17:35 | NUR ---
Pt states that she is comfortable at this time. She is sitting up in her bed eating dinner at this time.
--- NOTE | 2018-06-11 17:47 | EKG ---
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
--- NOTE | 2018-06-11 18:39 | NUR ---
PT WAS ADMITTED TO MED SURG AT 1345 THIS SHIFT FOR ACUTE KIDNEY INJURY. HER LABS WERE NOT LOOKING GOOD AND A BMP IS ORDERED FOR 1900 THIS EVENING. HER SODIUM WAS 123 AND HER POTASSIUM WAS 5.6. EKG WAS DONE, RAMIRES WAS PLACED, UA WAS SENT, IV BOLUS WAS GIVEN. PT IS BED/WC BOUND AND USES A STEFFEN AT HER ASSISTED LIVING HOME. SHE IS ALERT TO PERSON AND PLACE, NOT TIME. SHE IS INCONT OF BOWELS AND URINE BASELINE.
--- NOTE | 2018-06-11 19:30 | NUR ---
REPORT RECEIVED, PT RESTING IN BED, WATCHING TV, PT APPROPRIATE, ASKING QUESTIONS. PT'S RAMIRES CATH DRAINING WNL, EMPTIED 650 MLS BY KARLO MOSES, NO REQUESTS AT THIS TIME, CALL LIGHT WITHIN REACH. FALL PRECAUTIONS IN PLACE.
--- NOTE | 2018-06-11 20:45 | NUR ---
PT'S TEDHOSE REMOVED PER PT'S REQUEST STATING "I DON'T SLEEP WITH THEM ON", PT EDUCATED REGARDING DVT PROPHYLAXIS, PT REQUESTS TO HAVE LIDOCAINE CREAM PLACED TO BILATERAL LEGS, LIDOCAINE CREAM ADMINISTERED PER PT'S REQUEST. NO FURTHER REQUESTS AT THIS TIME, SHIFT ASSESSMENT COMPLETE. PT'S LS CLEAR, DIMINISHED BASES BILATERALLY, VSS. PT'S SKIN HAS SOME ABRASIONS TO ARMS PT STATES IT IS FROM "THE STEFFEN". PT DENIES ANY SOB/CP, DENIES PAIN. DENIES ANY NEEDS AT THIS TIME, CALL LIGHT WITHIN REACH. FALL PRECAUTIONS IN PLACE.
--- NOTE | 2018-06-11 21:45 | NUR ---
EVENING MED ADMINISTERED PER ORDERS, EDUCATION PROVIDED TO PT, QUESTIONS ANSWERED, NO FURTHER REQUESTS, CALL LIGHT WITHIN REACH. FALL PRECAUTIONS IN PLACE. IV FLUIDS INFUSING PER EMAR WNL.
--- NOTE | 2018-06-11 23:00 | NUR ---
PT RESTING IN BED, NO REQUESTS AT THIS TIME, CALL LIGHT WITHIN REACH. FALL PRECAUTIONS IN PLACE. IV FLUIDS INFUSING PER EMAR WNL.
--- NOTE | 2018-06-12 00:41 | NUR ---
PT RESTING IN BED, EYES CLOSED, BREATHS EVEN, UNLABORED, NO REQUESTS AT THIS TIME, IV FLUIDS INFUSING PER EMAR WNL, CALL LIGHT WITHIN REACH.
--- NOTE | 2018-06-12 02:39 | NUR ---
PT RESTING IN BED, EYES CLOSED, BREATHS EVEN, UNLABORED, IV FLUIDS INFUSING PER EMAR WNL, NO REQUESTS AT THIS TIME, CALL LIGHT WITHIN REACH, BED ALARM ON, FALL PRECAUTIONS IN PLACE.
--- NOTE | 2018-06-12 04:55 | NUR ---
PT AOX4 THIS SHIFT, APPROPRIATE, MAY BE OCCASIONALLY FORGETFUL OR SLOW TO RESPOND AT TIMES, PT'S IV FLUIDS INFUSING PER EMAR WNL, PT SLEPT THROUGHOUT MOST OF SHIFT, VSS, ON RA, NO C/O SOB/CP, PT GIVEN LIDOCAINE CREAM TO BLE RELATED TO JOINT PAIN. PT INCONTINENT, NO BM THIS SHIFT THUS FAR, RAMIRES CATH DRAINING WNL.
--- NOTE | 2018-06-12 06:00 | NUR ---
VITALS AND I&OS DONE AND CHARTED. BED WEIGHT DONE WELL. INFORMED HER RN ISIDRO OF LOW PULSE AND B\P. BEDSIDE TABLE AND CALL LIGHT WITHIN REACH. CLEANED UP HER ROOM. GARBAGES EMPTIED.
--- NOTE | 2018-06-12 07:26 | NUR ---
Bedside report received from Cal MOSES. The pt states she is comfortable at this time and her call linton is within reach and she denies any current problems.
--- NOTE | 2018-06-12 07:56 | NUR ---
PT AWOKE TO VOICE FOR ASSESSMENT AND QUICKLY FELL BACK TO SLEEP. CALL COLBERT WITHIN REACH.
--- NOTE | 2018-06-12 08:30 | NUR ---
AFTER WE CHANGED HER. THE CHARGE NURSE, THE OTHER JOINT SUPERVISOR AND I HOYERED HER FROM HER BED TO THE CHAIR. SHE SET UP IN HER CHAIR THROUGH LUNCH.
--- NOTE | 2018-06-12 08:58 | NUR ---
Pt was helped up to the recliner with the use of the karuna lift so she can sit up for breakfast. She was found to be incont of stool and was cleaned and changed prior to getting up to the chair. Pt states she feels fine and has not pain at this time.
--- NOTE | 2018-06-12 09:06 | NUR ---
Pt's personal isis hose were placed as she requested and her legs were elevated on the chair. Pt currently eating breakfast.
--- NOTE | 2018-06-12 10:47 | NUR ---
Pt resting in her recliner reading a book at this time. She appears in no distress and she denies any problems at this time.
--- NOTE | 2018-06-12 14:33 | NUR ---
PATIENT RESTING IN BED. VITAL SIGNS AND I&O DONE. CALL LIGHT WITHIN REACH. NO OTHER NEEDS AT THIS TIME
--- NOTE | 2018-06-12 15:26 | NUR ---
PATIENT RESTING IN BED. ATTEND CHANGED. TWO PERSON ASSISTING. PATIENT USING A CLEAN GOWN. CALL LIGHT WITHIN REACH. NO OTHER NEEDS AT THIS TIME
--- NOTE | 2018-06-12 17:12 | NUR ---
Pt resing in bed with no complaints at this time.
--- NOTE | 2018-06-12 17:36 | NUR ---
PT OUT OF BED FOR A FEW HOURS TODAY AND IN HER RECLINER. RAMIRES CONTINUES TO PRODUCE CLOUDY YELLOW URINE OF A MODERATE AMOUNT. SHE HAS HAD 3 LOOSE STOOLS IN HER DEPENDS THIS SHIFT. SHE REMAINS ON IV ABX.
--- NOTE | 2018-06-12 19:22 | NUR ---
RECEIVED REPORT FROM JOSUÉ DIETRICH. pt IN BED ALERT AND AWAKE. pt REQUESTED "SOMETHING FOR THE BOWEL MOVEMENTS". NO REQUESTS AT THIS TIME. CALL LIGHT WITHIN REACH. WHITEBOARD UPDATED
--- NOTE | 2018-06-12 20:19 | NUR ---
PER PT REQUEST I GAVE HER TWO WARM BLANKETS.
--- NOTE | 2018-06-12 21:34 | NUR ---
VITALS AND I&OS DONE AND CHARTED. FRESH DIET SODA GIVEN PER PT REQUEST. ATTENDS WERE CHECKED FOR BM, NONE AT THIS TIME. BEDSIDE TABLE AND AND CALL LIGHT IN REACH.
--- NOTE | 2018-06-12 21:44 | NUR ---
ASSESSMENT AND MEDICATIONS DUE. pt REQUESTED "SOMETHING FOR THE BOWEL MOVEMENTS". MD CALLED AND ORDER ENTERED. ASSESSMENT DONE. RAMIRES CARE DONE. NO BM AT THIS TIME. MEDICATIONS GIVEN (SEE MAR). IV ABX INFUSING. LIDOCAINE APPLIED PER REQUEST. AES OFF FOR BEDTIME. NO FURTHER REQUESTS AT THIS TIME. CALL LIGHT WITHIN REACH.
--- NOTE | 2018-06-12 23:24 | NUR ---
CALL LIGHT ON. pt REQUESTED THAT HER DEPENDS BE CHANGED. CHANGED, NO BM AT THIS TIME. CALL LIGHT WITHIN REACH. PREPARED FOR BED. NO REQUESTS AT THIS TIME.
--- NOTE | 2018-06-13 02:34 | NUR ---
ROUNDED ON pt. RESTING WITH EYES CLOSED, RESPIRATIONS REGULAR. CALL LIGHT WITHIN REACH.
--- NOTE | 2018-06-13 04:40 | NUR ---
ROUNDED ON pt. RESTING WITH EYES CLOSED. RESPIRATIONS REGULAR. CALL LIGHT WITHIN REACH.
--- NOTE | 2018-06-13 04:46 | NUR ---
pt RESTED MOST OF THE SHIFT. RAMIRES DRAINING CLOUDY URINE. NO BM THIS SHIFT. INCONTINENT OF STOOL. STEFFEN LIFT. IVF RUNNING. IV ABX. TOLERATING CARDIAC DIET. USES CALL LIGHT APPROPRIATELY.
--- NOTE | 2018-06-13 06:06 | NUR ---
ASSESSMENT AND VITAL SIGNS DONE. pt CONFUSED, CONTINUED TO ASK WHY THIS RN WAS IN HER ROOM. REORIENTED FREQUENTLY. I&O RECORDED. NO BM AT THIS TIME. CALL LIGHT WITHIN REACH.
--- NOTE | 2018-06-13 07:07 | NUR ---
Bedside report received from JOSUÉ Morin. Pt resting supine in bed with eyes closed and respirations even and unlabored. Call light and h20 in reach. Pt appears to be sleeping comfortably.
--- NOTE | 2018-06-13 09:10 | NUR ---
PATIENT RESTING IN BED. PATIENT ATTEND IS CLEAN. PATIENT TRANSFERRED TO CHAIR USING A STEFEFN. TWO PERSON ASSISTING. CALL LIGHT WITHIN REACH. NO OTHER NEEDS AT THIS TIME
--- NOTE | 2018-06-13 09:22 | NUR ---
pt asssited up to chair for breakfast. assessment completed and am meds administered. Pharmacy notified of need for mag rider. breakfast arrived and offal roller assisting pt in eating oatmeal. pt is alert and oriented to person and place. call [facility] and0 in reach. no needs or concerns voiced.
--- NOTE | 2018-06-13 09:40 | NUR ---
PATIENT SITTING UP IN CHAIR. VITAL SIGNS AND I&O DONE. CALL LIGHT WITHIN REACH. NO OTHER NEEDS AT THIS TIME
[2018-06-13] MEDS ORDERED: KEFLEX500 MG PO (11:01)
--- NOTE | 2018-06-13 12:01 | NUR ---
pt resting reclined in chair, call light and h20 in reach. no needs/concerns voiced. IV maintenance fluids infusing.
== END 2018-06-13 13:05 ==
LOC: MS 12:08
PROVIDERS: ADMIT Student in an Organized Health Care Education/Training Program
DX: N17.9 Acute kidney failure, unspecified (principal); G93.41 Metabolic encephalopathy; E87.5 Hyperkalemia; E87.1 Hypo-osmolality and hyponatremia; N39.0 Urinary tract infection, site not specified; N18.3 Chronic kidney disease, stage 3 (moderate); E78.5 Hyperlipidemia, unspecified; K76.0 Fatty (change of) liver, not elsewhere classified; K74.60 Unspecified cirrhosis of liver; D69.6 Thrombocytopenia, unspecified; G89.4 Chronic pain syndrome; I48.2 Chronic atrial fibrillation; F39 Unspecified mood [affective] disorder; E79.0 Hyperuricemia without signs of inflammatory arthritis and tophaceous disease; Z79.51 Long term (current) use of inhaled steroids; Z79.899 Other long term (current) drug therapy; Z88.5 Allergy status to narcotic agent; Z88.0 Allergy status to penicillin; Z88.2 Allergy status to sulfonamides; Z88.8 Allergy status to other drugs, medicaments and biological substances
CPT/HCPCS: 36415; 80048; 80053; 81001; 83735; 83935; 84300; 84550; 85025; 87077; 87088; 87186; 93005; 93010; 96365; 96366; 96372; 96375; 97110; 97163; 97166; G0378; G0379; J0696; J1650; J3475; J7120

== ENCOUNTER 2019-05-22 23:02 | Inpatient (IN) | payer MEDICARE ==
[~2019-05-22] VITALS: Ht 154.9 cm; Wt 104.3 kg
[~2019-05-22 23:02] MED LIST changes: +ALLOPURINOL100 MG PO; +ANTI-DIARRHEA2 MG PO; +FLONASE ALLERG9.9 ML NAS; +FUROSEMIDE20 MG PO; +KEFLEX500 MG PO; +METOPROLOL SUCC25 MG PO; +MIDODRINE HCL5 MG PO; +MILK OF MA400 MG/5 M PO; +MULTI-VITAMIN1 EACH PO; +PREPARATION H C26 GM PR; +SPIRONOLACTONE50 MG PO; +VISINE DRY EYE15 ML OU; +[UNRECOGNIZED DRUG - OTHER] TOP
--- OUTSIDE RECORDS SUMMARY | 2019-05-22 23:06 | XMS ---
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 No recent Security Events currently on file CRITERIA MET - [facility] Has Care Guidelines CARE PROVIDERS TINA BAIN Internal Medicine 10/31/2017-Current [employer] PHONE: [phone] Benjamín Cristina MD Primary Care Current PHONE: [phone] aruna Case or Supervisor Assembling Current PHONE: Unknown Guidelines Source: [facility] Guidelines Date: 12/04/2017 Care Coordination: PATIENT IS UNDER SERVICES AT [facility].\T\nbsp; IF PATIENT IS SEEN IN THE ED, PLEASE NOTIFY THEM AT [phone].\T\nbsp; IF AFTER HOURS OR ON WEEKENDS PLEASE CALL SWITCHBOARD AT [phone] AND HAVE ON-CALL RN NOTIFIED. Care History Medical/Surgical 10/31/2017 [facility] - Patient is currently established with [facility]. If patient is seen in the ED during business hours. Please contact CHWs at [facility]. Care Recommendation: This patient has had 5 or more Emergency Department visits in the last 12 months.\T\nbsp; Patient requires education on the scope and purpose of the ED as an acute care provider not a Primary Care Provider and should not be utilized for chronic conditions.\T\nbsp; These are guidelines and the provider should exercise clinical judgment when providing care. E.D. VISIT COUNT (12 MO.) 1 [facility]. TOTAL 1 NOTE: Visits indicate total known visits. ED/UCC VISIT TRACKING (12 MO.) 05/22/2019 23:03 [facility] TYPE: Emergency COMPLAINT: - ALT LOC INPATIENT VISIT TRACKING (12 MO.) 06/11/2018 13:38 [facility] TYPE: Observation COMPLAINT: - ACUTE KIDNEY INJURY DIAGNOSES: - Allergy status to narcotic agent status - Acute kidney failure, unspecified - Allergy status to oth drug/meds/biol subst status - Unspecified cirrhosis of liver - Hyperlipidemia, unspecified - Fatty (change of) liver, not elsewhere classified - Allergy status to penicillin - Urinary tract infection, site not specified - Allergy status to sulfonamides status - Metabolic encephalopathy - Chronic pain syndrome - 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
[2019-05-22] MEDS ORDERED: LASIX20 MG PO (23:45)
[2019-05-22] MEDS ORDERED: ALDACTONE25 MG PO (23:46)
[2019-05-22] MEDS ORDERED: TESSALON PERLE100 MG PO (23:48)
[2019-05-22] MEDS ORDERED: WIXELA 500-501 EACH INH (23:49)
[2019-05-22] MEDS ORDERED: CLEOCIN HCL300 MG PO (23:51)
[2019-05-22] MEDS ORDERED: GUAIFENESIN-DM 15 ML PO (23:53)
--- NOTE | 2019-05-23 03:00 | NUR ---
PATIENT'S MANUAL BP 80 SYSTOLIC. REPORTED TO MD. ORDERS FOR FLUID BOLUS RECIEVED AND VERIFIED VIA REPEAT BACK. ALSO ORDERS FOR RAMIRES FOR STRICT I&O'S. BOLUS STARTED, DISCUSSED WITH PATIENT. RAMIRES PLACED. SMALL AMOUNT OF URINE NOTED. ALLOWED TO DRAIN AT THIS TIME.
--- NOTE | 2019-05-23 03:00 | NUR ---
0230 PATIENT ARRIVED TO THE UNIT VIA STRETCHER. HOVER MAT USED TO TRANSFER PATIENT TO BED. PATIENT ALERT AND ORIENTED X3. ORIENTED HAS IMPROVED TO NEAR BASELINE PER FAMILY. TOLERATING ROOM AIR. LUNGS ARE CLEAR, DIM IN THE BASES. ABD IS LARGE AND FIRM MORE ON THE LEFT SIDE. TENDER THROUGHOUT. PATIENT REPORTS CONSTIPATION. NO NAUSEA. INCONTINENT OF SMALL AMOUNT OF URINE. ATTENDS CHANGED. BRUISING NOTED SCATTERED ON PATIENT'S ARMS AND LEGS. PATIENT REPORTS SENSITIVE SKIN AND SORE JOINTS. PATIENT LIMITED MOBILITY. BEDBOUND AT BASELINE. POOR CIRCULATION NOTED IN NEPTALI LOWER EXTREMITITES, BOTH DUSKY IN COLOR WITH > 3 SECOND. 2+ EDEMA IN NEPTALI LOWER EXTREMITIES. IV FLUIDS INFUSING PER ORDER, SITE WNL X2.
--- NOTE | 2019-05-23 04:00 | NUR ---
IV BOLUS FINISHED. PATIENT SLEEPING SOUNDLY. URINE OUTPUT 100 MLS. SYSTOLIC BP IMPROVED TO 100. WILL CONTINUE TO MONITOR.
--- NOTE | 2019-05-23 06:00 | NUR ---
PATIENT'S URINE OUTPUT QS, LESS CLOWDY WITH SMALL AMOUNT OF SEDIMENT. IV FLUIDS PER ORDER, SITE WNL. PATIENT SLEEPING SOUNDLY. WAKES EASILY TO VOICE. BP CONTINUE TO BE ADEQUATE. OCCATIONAL NONPRODUCTIVE COUGH NOTED.
--- NOTE | 2019-05-23 07:30 | NUR ---
report recieved. IS SLEEPING, NO DISTRESS NOTED.
--- NOTE | 2019-05-23 08:00 | NUR ---
PATIENT IS VERY DROWSY, WOKE BRIEFLY FOR ASSESSMENT. RAMIRES CATH PATENT WITH CLEAR YELLOW URINE NOTED. IVF INFUSING AT 125 ML/HR. REFUSING BREAKFAST AT THIS TIME, WISHES TO SLEEP.
--- NOTE | 2019-05-23 09:20 | NUR ---
DR. CLEMENTE HERE TO SEE PATIENT. ORDERS RECIEVED. IVF TO 75 ML/HR.
--- NOTE | 2019-05-23 10:00 | NUR ---
SITTING UP IN BED TO TAKE LATE BREAKFAST.
--- NOTE | 2019-05-23 10:25 | NUR ---
ROUTINE MEDICATIONS GIVEN. TURNED TO LEFT SIDE TO GIVE SUPPOSITORY. SOFT STOOL NOTED IN RECTUM WHEN SUPPOSITORY GIVEN. REFUSED PROZAC AT THIS TIME, PATIENT TOLD ME SHE DOESN'T THINK SHE TAKES IT AT HOME. WILL CALL [facility] FOR MED RECORD.
--- NOTE | 2019-05-23 10:40 | NUR ---
PATIENT NIECE HERE. UPDATE GIVEN TO HER.
--- NOTE | 2019-05-23 10:50 | NUR ---
PHYS THERAPY HERE TO SEE PATIENT.
--- NOTE | 2019-05-23 11:15 | NUR ---
SLEEPING, NO DISTRESS NOTED.
--- NOTE | 2019-05-23 12:20 | NUR ---
ACCUCHEK-206. 3 UNITS INSULIN SQ GIVEN.
--- NOTE | 2019-05-23 12:30 | NUR ---
ATTEMPTIMG TO HAVE BM. RECTAL DONE, ABLE TO FEEL LARGE AMOUNT OF SOFT STOOL, ONLY ABLE TO MANUALLY REMOVE SMALL AMOUNT OF STOO,L STOOL IS SO SOFT. FLEETS ENEMA GIVEN. AFTER THIS GIVEN, PATIENT CONTINUED TO HAVE EXTRA LARGE BM. BED LINEN CHANGED. PATIENT TOLERATED WELL.
--- NOTE | 2019-05-23 15:24 | NUR ---
C/O CHILLING, JUST FINISHED TAKING COLD ENSURE DRINK. ORAL TEMP-98.3, AX TEMP-99. HR-65. WILL CONTINUE TO MONITOR.
--- NOTE | 2019-05-23 16:00 | NUR ---
ASSESSMENT DONE. C/O CHILLING, TEMP 98.5. WARM BLANKET PROVIDED.
--- NOTE | 2019-05-23 17:54 | NUR ---
TOOK DINNER FAIR. RESTING NOW. NO DISTRESS NOTED. IVF INFUSING AT 75 ML/HR. RAMIRES CATH PATENT AND EMPTIED FOR 200 ML OF YELLOW URINE WITH SEDIMENT.
--- NOTE | 2019-05-23 19:01 | NUR ---
SLEEPING, NO CHANGES. REPORT TO NEXT SHIFT.
--- NOTE | 2019-05-23 19:10 | NUR ---
C/O NAUSEA. THINKS SHE ATE TO MUCH. PATIENTS WANTS TO INDICE VOMITING BY PUTTING FINGER DOWM HER THROAT. STATES THIS HAPPENS A COUPLE OF TIMES A MONTH.
--- NOTE | 2019-05-23 19:15 | NUR ---
ZOFRAN 4 MG IV GIVEN. CONTINUES TO INDUCE VOMIT.
--- NOTE | 2019-05-23 19:45 | NUR ---
SHIFT REPORT RECEIVED. PATIENT HAD INDUCED VOMITING DUE TO ABD DISCOMFORT AND OVER EATING. ASSISTED PATIENT IN CHANGING GOWN AND WASHING FACE. ORAL CARE PROVIDED. PATIENT DENIE NAUSEA. REPORTS FEELING HOT, ORAL TEMP 99.3 F. ROOM TEMP ADJUSTED PER REQUEST.
--- NOTE | 2019-05-23 21:17 | NUR ---
EVENING MEDS PROVIDED. ACCU CHECK AND SSI PER ORDER. PATIENT DENIES PAIN. CONTINUES TO FEEL CHILLED, ORAL TEMP 99.3 F. WARM BLANKET PROVIDED. RAMIRES CARE DONE. NO BM NOTED. ATTENDS IN PLACE. URINE OUTPUT QS, URINE CLOWDY WITH SEDIMENT. IV FLUIDS PER ORDER, SITE WNL. PATIENT POSTIONED FOR COMFORT. DENIES FURTHER NEEDS. CALL LIGHT IN REACH.
--- NOTE | 2019-05-24 00:19 | NUR ---
PATIENT SLEEPING SOUNDLY. WOKE EASILY, WAS CONFUSED ABOUT SURROUNDINGS FOR ABOUT A MIN. EASILY REORIENTED. PATIENT REPORTS FEELING WARM, BLANKETS REMOVED PER REQUEST. ORAL TEMP 99.8 F. RAMIRES EMPTIED, URINE OUTPUT QS. VS STABLE. IV FLUIDS PER ORDER, SITE WNL.
--- NOTE | 2019-05-24 04:29 | NUR ---
PATIENT SLEEPING SOUNDLY. AXILLARY TEMP 99.5 F. RAMIRES EMPTIED, YELLOW WITH SEDIMENT. 300 ML FOR LAST 4 HOURS. IV FLUIDS PER ORDER, SITE WNL. CALL LIGHT IN REACH.
--- NOTE | 2019-05-24 05:33 | NUR ---
ASSISTED LAB WITH MORNING DRAW. PATIENT TOLERATED WELL. PATIENT REQUESTED WARM BLANKETS WHICH WERE PROVIDED. CALL LIGHT IN REACH.
--- NOTE | 2019-05-24 07:30 | NUR ---
REPORT RECIEVED. PATIENT IS SLEEPING. NO DISTRESS NOTED.
--- NOTE | 2019-05-24 07:49 | NUR ---
UPON ENTERING ROOM, PATIENT IS SLEEPING. RESP ARE EQUAL AND NON-LABORED. RAMIRES CATH IS PATENT WITH YELLOW URINE NOTED, WITH SEDIMENT. IVF INFUSING AT 75 ML/HR. SCD'S TURNED ON. WILL NOT AWAKEN AT THIS TIME FOR ASSESSMENT.
--- NOTE | 2019-05-24 08:00 | NUR ---
Spoke with Kobe. States not feeling well today. 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 Uses a wc at all times as well as a karuna and a shower chair. Pt. plans on returning to [facility] on discharge.
--- NOTE | 2019-05-24 08:10 | NUR ---
AWAKENED BY BATTING MACHINE OPERATOR INSULATION. PATIENT C/O PAIN IN SHOULDERS, LEGS, AND GENERAL PAIN. ASSESSMENT DONE. TALKED WITH PATIENT ABOUT POC FOR DAY. IS SOMEWHAT RESISTANT REGARDING PLAN.
--- NOTE | 2019-05-24 08:30 | NUR ---
ROUTINE MEDICATIONS GIVEN. ACCUCHECK-157. 0NE UNIT INSULIN GIVEN.
--- NOTE | 2019-05-24 08:45 | NUR ---
POSITIONED TO LEFT SIDE. REFUSED BREAKFAST. WISHES TO SLEEP.
--- NOTE | 2019-05-24 09:45 | NUR ---
AWAKE. AM CARES GIVEN. REPOSITIONED TO BACK. STATES THE PAIN IS LESS NOW.
--- NOTE | 2019-05-24 11:00 | NUR ---
SITTING UP IN BED TO EAT TOAST.
--- NOTE | 2019-05-24 11:30 | NUR ---
PATIENT IS TALKING ABOUT HOW HEAVY HER LEGS FEEL. IS VERY FOCUSED ABOUT THE EDEMA IN HER LEGS/FEET. TALKED WITH PATIENT ABOUT THIS. WILL TALK WITH MD ABOUT THIS WHEN ROUNDS MADE.
[2019-05-24] MEDS ORDERED: VITAMIN D3 PO (11:35)
[2019-05-24] MEDS ORDERED: FLONASE ALLERG9.9 ML NAS (11:40)
--- NOTE | 2019-05-24 11:40 | NUR ---
INC OF STOOL, BED LINEN CHANGED. THEN TO CHAIR VIA OVERHEAD LIFT. TOLERATED TRANSFER WELL. ASKING FOR CHAVO SOCKS.
[2019-05-24] MEDS ORDERED: ROSADAN 0.75%1 EAC1 TOP (11:45)
[2019-05-24] MEDS ORDERED: MINERAL OIL AU (11:48)
[2019-05-24] MEDS ORDERED: FLUOCINONIDE60 ML TOP (11:54)
[2019-05-24] MEDS ORDERED: ANTI-ITCH28 G1 TOP (11:57)
[2019-05-24] MEDS ORDERED: ANTI-DIARRHEAL2 M1 PO (12:01)
[2019-05-24] MEDS ORDERED: KETOCONAZOLE120 ML TOP (12:11)
--- NOTE | 2019-05-24 12:13 | NUR ---
Med recompleted using Gurdeep Joiner MAR.
--- NOTE | 2019-05-24 12:32 | NUR ---
SITTING IN CHAIR.
--- NOTE | 2019-05-24 14:00 | NUR ---
NAPPING, NO DISTRESS NOTED.
--- NOTE | 2019-05-24 15:50 | NUR ---
REPORT GIVEN TO MED-SURG. PATIENT IS RESTFUL, IS W/O C/O.
--- NOTE | 2019-05-24 16:30 | NUR ---
AWAKE. MAG INFUSED. RAMIRES CATH PATENT.
--- NOTE | 2019-05-24 17:05 | NUR ---
TALKATIVE. NO CHANGES. PATIENT IS ANXIOUS AT TIMES. HAS MANY QUESTIONS REGARDING CARES.
--- NOTE | 2019-05-24 17:45 | NUR ---
TOOK DINNER WELL. DENIES NAUSEA.
--- NOTE | 2019-05-24 18:15 | NUR ---
TO MED-SURG VIA BED.
--- NOTE | 2019-05-24 18:34 | NUR ---
PT TO MEDR VIA BED REPORT GIVEN. ASSISTED PT TO REPOSITION AND GET COMFORTABLE. CALL LIGHT IN REACH NEEDED ITEMS AT BEDSIDE
--- NOTE | 2019-05-24 19:05 | NUR ---
BEDSIDE REPORT RECEIVED FROM OFFGOING RNSHRAVAN. PT RESTING IN BED AWAKE. NEEDS DENIED AT THIS TIME. CALL LIGHT IN REACH. ROOM IN VIEW OF RN STATION.
--- NOTE | 2019-05-24 20:20 | NUR ---
PT CALLED DESK WANTED NURSE IN ROOM. PT WANTED TO KNOW WHAT SHE HAD IN HER IV, THEN WONDERED WHY SHE WAS GETTING A "4 HOUR INFUSION" WHEN SHE HASN'T HAD ONE BEFORE. MEDICATION HAS BEEN GIVEN MULT TIMES HER ADMISSION. PT THEN TURNED TO RIGHT LEG, AND THE SCD'S CAUSING PAIN, AND HOW SENSITIVE HER SKIN IS. ADJUSTED THE SCD'S. PT CONTINUED TO HAVE NEEDS THROUGHOUT CONVERSATION. LEFT ROOM CALL LIGHT WITHIN REACH.
--- NOTE | 2019-05-24 23:00 | NUR ---
PT ASSESSMENT COMPLETE. PT DENIES PAIN, NASUEA, OR SOB. PT WITH 3+ PITTING EDEMA TO BILATERAL ANKLES AND FEET. HEEL PROTECTORS APPLIED, AND FEET ELEVATED ON PILLOWS. ATTENDS IN PLACE FOR INCONTINENCE. PT CHANGED AND TURNED BY BRITTANY AND THIS HEAD SOFT SUGAR OPERATOR. IV SITE FLUSHED PT COMPLAINS OF EXTREME PAIN, SIGNS OF INFILTRATION NOTED. BASIC COMBATANT SWIMMER NOTIFIED, HE STARTED NEW IV. PT TOLERATED WELL. PT DENIES FURTHER NEEDS AT THIS TIME. CALL LIGHT IN REACH. ROOM IN VIEW OF RN STATION.
--- NOTE | 2019-05-25 00:05 | NUR ---
PATIENT USED THE CALL LIGHT. THIS WILDLIFE ENFORCEMENT MAJOR WENT IN TO THE ROOM BECAUSE PATIENT DOES NOT WANT TO TALK OVER THE PHONE. PATIENT WANTED HER HEAD/HAIR COMB TO SCRATCH HER HEAD. THIS WILDLIFE ENFORCEMENT MAJOR CHANGED THE UNDER PAD SOAKED WITH URINE. PATIENT REQUESTED PAIN MEDS. PRIMARY RN NOTIFIED.
--- NOTE | 2019-05-25 00:36 | NUR ---
pt utilizes call light, reports generalized pain. rates 7/10. prn tylenol administered. pt requests attends changed. boiler room helper and this financial writer cleaned and changed pt. pt denies further needs. call light in reach. room in view of rn station.
--- NOTE | 2019-05-25 01:28 | NUR ---
CALL LIGHT ON. WENT IN TO THE ROOM. PATIENT C/O SCD BOTHERING HER, CAN NOT SLEEP, AND PAIN IN THE RIGHT ANKLE. PRIMARY RN LINDSEY NOTIFIED. PATIENT IS OFF FROM SCD. PATIENT C/O WET ATTENDS. CHECKED ATTENDS, IT IS DRY AND SHOWED IT TO HER. NO OTHER NEEDS AT THIS TIME.
--- NOTE | 2019-05-25 02:20 | NUR ---
RESOLUTION MANAGER TO ROOM FOR SCHEDULED MED ADMINISTRATION. PT AWAKE, STATES THAT SHE HAS NOT BEEN TO SLEEP YET. PT CONTINUES TO REPORT GENERALIZED PAIN. STATES THAT SHE ALWAYS HURTS. PAD IN ATTENDS CHANGED. PT DENIES FURTHER NEEDS. CALL LIGHT WITHIN REACH.
--- NOTE | 2019-05-25 03:50 | NUR ---
PATIENT CALLED. CHANGED UNDER PAD SOAKED WITH URINE.
--- NOTE | 2019-05-25 06:32 | NUR ---
PT ASSESSMENT COMPLETE. PT VERY SLEEPY. STATES THAT SHE WOULD LIKE TO GO BACK TO SLEEP SOON POSSIBLE. ASSESSMENT UNCHANGED FROM PREVIOUS. ATTENDS CHANGED AT THIS TIME. PT TOLERATED WELL. DENIES FURTHER NEEDS. CALL LIGHT IN REACH. ROOM IN VIEW OF RN STATION.
--- NOTE | 2019-05-25 06:43 | NUR ---
PT AWAKE MOST OF SHIFT. PRN TYLENOL X 1 FOR PAIN. SKIN TEAR TO L FOREARM. SKIN FRAGILE. BLE'S WITH IMPROVING EDEMA. ATTENDS IN PLACE FOR INCONTINENCE. PT BED BOUND AT BASELINE. STEFFEN TRANSFER. ACCUCHECKS AND SSI. NEW IV THIS SHIFT, WNL.
--- NOTE | 2019-05-25 07:00 | NUR ---
Report received, orders acknowledged. Patient sleeping, respirations even and unlabored. Call light within reach.
--- NOTE | 2019-05-25 08:15 | NUR ---
Patient laying in bed, awake and alert. Reports pain of 7/10 from headache, prn pain medication given (see MAR). AM medications given, assessment complete. Warm blankets provided. Patient has large bowel movement and is incontinent of urine. New attends in place. Saline locked. Reports "I didn't get any sleep, I would like to sleep this morning." Denies further needs at this time, call light within reach.
--- NOTE | 2019-05-25 09:19 | NUR ---
PATIENT HAD INCONT. VOID AND BM, LUL CARE DONE. LINENS CHANGED. NEW ATTENDS IN PLACE. PARTIAL BEDBATH GIVEN. FRESH WATER GIVEN. RN IN ROOM. CALL LIGHT IN REACH. NO FURTHER NEEDS AT THIS TIME.
--- NOTE | 2019-05-25 09:50 | NUR ---
IM injection of abx given to patient in ventrogluteal muscle. Patient denies needs at this time, call light within reach.
--- NOTE | 2019-05-25 11:30 | NUR ---
BS of 141, one unit of insulin given. Patient reports headache is improved with prn medication. Warm blankets provided. No needs at this time, call light within reach.
--- NOTE | 2019-05-25 13:43 | NUR ---
RN KAISER REQUESTED I NOT DISTURB PT AT THIS TIME SHE STATED THAT SHE WANTED TO REST WITHOUT INTERRUPTIONS. WILL FOLLOW NEEDED
--- NOTE | 2019-05-25 13:49 | NUR ---
PATIENT HAD INCONT., ATTENDS CHANGED. LUL CARE DONE. CALL LIGHT IN REACH. NO FURTHER NEEDS AT THIS TIME.
--- NOTE | 2019-05-25 14:30 | NUR ---
Patient incontinent of stool. Patient cleaned and new attends with pad in place. Patient requests diet pepsi, which is accommodated. Warm blankets provided. No further needs at this time, call light within reach.
--- NOTE | 2019-05-25 18:00 | NUR ---
PATIENT SITTING UP IN BED EATING DINNER. CALL LIGHT IN REACH. NO FURTHER NEEDS AT THIS TIME.
--- NOTE | 2019-05-25 19:55 | NUR ---
ANSWERED CALL LIGHT. PATIENT C/O WET. WIPED AND CHANGED NEW UNDERPAD.
--- NOTE | 2019-05-25 19:56 | NUR ---
PATIENT HOYERED TO SHOWER CHAIR AND INTO SHOWER THEN BACK TO BED, STEFFEN 2PA. LINENS CHANGED. NEW GOWN PROVIDED. NEW ATTENDS IN PLACE. LUL CARE, SKIN CARE, SHAMPOO DONE. CALL LIGHT IN REACH. NO FURTHER NEEDS AT THIS TIME.
--- NOTE | 2019-05-25 20:06 | NUR ---
RECEIVED REPORT FROM DAY SHIFT RN. PATIENT IS RESTING IN BED. AID PRESENT IN THE ROOM. PATIENT FINISHING WITH SHOWER. NO NEEDS NOTED. CALL LIGHT IN REACH.
--- NOTE | 2019-05-25 21:35 | NUR ---
PATIENT ASSESMENT COMPLETED. PATIENTS ATTEND CHANGED AND LUL CARE COMPLETED. PATIENT REPOSITIONED IN BED. PATIENT DENIES ANY PAIN. PATIENTS VITALS TAKEN AND RECORDED. PATIENTS INTAKE AND OUPUT RECORDED. PATIENT HAD MULTIPLE BMS. PATIENT REFUSED BOWEL CARE. PATIENTS EVENING MEDICATIONS GIVEN PER ORDER. PATIENT REPEATS QUESTIONS MULTIPLE TIMES. PATIENT IS OREINTED TO SELF, SURROUNDINGS AND EVENT. PATIENTS IV FLUSHED AND SL. PATIENT DENIES ANY NEEDS. CALL LIGHT IN REACH.
--- NOTE | 2019-05-25 22:55 | NUR ---
ANSWERED CALL LIGHT. WIPED AND CHANGED UNDERPAD SOILED WITH URINE.
--- NOTE | 2019-05-25 23:56 | NUR ---
PATIENTS PAD IN ATTEND CHANGED. PATIENT HAD SMALL INCONTINENCE OF URINE. PATIENT DENIES ANY NEEDS. CALL LIGHT IN REACH. PATIENT REPOSITIONED IN BED.
--- NOTE | 2019-05-26 01:06 | NUR ---
PATIENTS WAS INCONTINENT OF URINE, PATIENTS ATTEND CHANGED. PATIENT REPOSITIONED IN BED. PATIENT GIVEN PRN TYLENOL FOR A HEADACHE. NO FURTHER NEEDS NOTED. CALL LIGHT IN REACH.
--- NOTE | 2019-05-26 02:20 | NUR ---
PATIENT NOTIFIED STAFF THAT HER ATTEND WAS WET. PATIENTS ATTEND FOUND DRY AT THIS TIME. PATIENT REPOSITIONED IN BED. PATIENT STATED "MY HEADAHCE IS BETTER". PATIENT ASSISTED WITH DRINKS OF COLA. PATIENTS FACE WASHED AND HAIR COMBED. NO FURTHER NEEDS. NOTED CALL LIGHT IN REACH.
--- NOTE | 2019-05-26 03:30 | NUR ---
PATIENT NOTIFIED STAFF THAT SHE NEEDED "ADJUSTED". PATIENT REPOSITIONED IN BED. PATIENT THEN COMPLAINED THAT THERE WAS "SOMETHING ON HER BACK" PATIENT ROLLED ON HER SIDE. PATIENTS BACK FOUND TO BE WNL. PATIENTS BACK WASHED WITH SOAP AND WARM WATER. LOTION THEN APPLIED TO PATIENTS BACK. PATIENT THEN REPOSITIONED IN HER RIGHT SIDE AND PILLOWS PLACED BEHIND HER BACK. NO FURTHER NEEDS NOTED. CALL LIGHT IN REACH.
--- NOTE | 2019-05-26 03:52 | NUR ---
PATIENT NOTIFIED STAFF THAT SHE FELT THAT HER BACK HAD A "RASH" ON HER BACK. THIS RN AND EUGENIA BEEF CATTLE FARM WORKER INSPECTED PATIENTS BACK THOUROUGHLY. NO ABNORMALITIES NOTED. LOTION APPLIED TO PATIENTS BACK AND NECK AREA. PATIENT PROVIDED WITH SUPPORT SHE IS TEARFUL ABOUT BEING SICK. PATIENT DENIES ANY FURTHER NEEDS CALL LIGHT IN REACH.
--- NOTE | 2019-05-26 05:06 | NUR ---
PATIENT STRUGGLED TO REST DURING THIS SHIFT. PATIENT IS ON AN ADA DIET. PATIENT IS ON RA. PATIENT IS A STEFFEN XFER. PATIENT HAS HEEL PROTECTORS AND SCDS IN USE. PATIENT IS SL AND IV FLUSHES WELL. PATIENT IS INCONTINENT, ATTEND IN PLACE. PATIENT IS IN CONTACT PRECAUTIONS FOR BACTERIA IN HER UTI. PATIENT IS FORGETFUL AT TIMES AND REPEATS QUESTIONS OFTEN. PATIENT USES CALL LIGHT APPROPRIATELY.
--- NOTE | 2019-05-26 06:32 | NUR ---
PATIENTS ATTEND CHANGED AND LUL CARE COMPLETED. PATIENT REPOSITIONED IN BED. PATIENTS VITALS TAKEN AND RECORDED. INTAKE AND OUPUT RECORDED. NO FURTHER NEEDS NOTED. CALL SAJI LEVIN.
--- NOTE | 2019-05-26 08:13 | NUR ---
PATIENT SLEEPING AT SHIFT CHANGE. JOCELYNE MOSES GAVE BEDSIDE REPORT. WHITE BOARD UPDATED. PATIENT CALLED AT 0800. BLOOD SUGAR 133. NO COVERAGE NEEDED. LOOSE BM IN ATTENDS. CHANGED WITH 2PA. DRAW SHEET AND CHUCKS CHANGED. PATIENT IN POSITION OF COMFORT NOW.
--- NOTE | 2019-05-26 09:00 | NUR ---
Brief visit with Gaye. States she is feeling somewhat better, wanting to return to [facility]. Message left at [facility] requesting if pt may return tomorrow if discharged.
--- NOTE | 2019-05-26 10:20 | NUR ---
IV FOUND TO BE LEAKING. UNABLE TO SAVE THIS IV. ATTEMPTED 3 IV PLACEMENTS AFTERWARDS. ALL UNSUCCESSFUL. WILL TRY TO GET ULTRASOUND GUIDED PLACEMENT. PATIENT REFUSES TO LET RNs START IV IN HANDS, ELBOWS, AND CHEST.
--- NOTE | 2019-05-26 11:55 | NUR ---
IV ABX RESTARTED AFTER IV START BY CHRISTIANO MOSES. BELONGINGS IN REACH AND CALL LIGHT IN REACH. NO NEEDS AT THIS TIME.
--- NOTE | 2019-05-26 13:49 | NUR ---
PT FORGETFUL/CONFUSED. ASKS SAME QUESTIONS MULTIPLE TIMES. CONCERNED ABOUT SISTERBISHOP NOT ABEING ON "OK TO NOTIFY" LIST. WILL ADD HER SISTER WHEN SHE CALLS NEXT TIME D/T NOT KNOWING PHONE NUMBER.
--- NOTE | 2019-05-26 14:11 | NUR ---
WNT IN WITH BRITTANY PABON TO CHECK ON PT. SHE WAS LAYING IN BED AND HER RM PHONE BEGAN TO RING. CM ANSWERED FOR PT, TOOK THE CALL,PT ASKED IF I WOULD COME BACK LATER. WILL FOLLOW NEEDED
--- NOTE | 2019-05-26 14:55 | NUR ---
SITTING UP IN BED. AWAITING EYE DROPS FROM PHARMACY TO ADMINISTER TO PATIENT. NO OTHER NEEDS AT THIS TIME.
--- NOTE | 2019-05-26 16:46 | NUR ---
CHANGED BRIEFS AND REPOSITIONED PATIENT UP IN BED. ALL BELONGINGS AND CALL LIGHT IN REACH.
--- NOTE | 2019-05-26 18:17 | NUR ---
BM X3 LOOSE TODAY. STOOL SOFTENERS DISCONTINUED. 2PA TURNS. NEW IV IN IVONE 18G. ULTRASOUND GUIDED PLACEMENT. LEGS ELEVATED. HOME TO [facility] TOMORROW. INVANZ DAILY. FORGETFUL AT TIMES. REPEATS QUESTIONS.
--- NOTE | 2019-05-26 20:20 | NUR ---
pt continuous on contact precautions for echoli in urine. On room air, IS at bedside, lungs dim at bases, denies SOB. Incontinent of urine, changed. Multiple petechia all over body, L chest, arms and legs, red area perpendicularbelow L axillary area, Repositioned in bed. Daisy used, Coop with assessment. CBG 138, no coverage needed. Fresh water art bedide, call light at hands reach. Denies c/o pain, heel protectors in place. elevated in pillows
--- NOTE | 2019-05-26 20:20 | NUR ---
ROUNDED CHARGE. PATIENT IS RESTING IN BED. DEJUAN RN IN ROOM. NO NEEDS NOTED. CALL LIGHT IN REACH.
--- NOTE | 2019-05-26 22:55 | NUR ---
INCONTINENT OF URINE, ATTENDS CHANGED, C/O GENERALIZED ARMS. LEGS AND BACK PAIN, MEDICATED WITH TYLENOL 500MG PO, REPOSITIONED IN BED
--- NOTE | 2019-05-27 02:47 | NUR ---
Resting, no c/o pain, eyes closed, no resp distress, call lihgt at bedside
--- NOTE | 2019-05-27 04:48 | NUR ---
Pt has slept most of this shift. Incontinent of urine, skin care and barrier cream to red areas. MUltiple bruised areas all over body in different stages of healing. Limited arm mobility due to stiffness and pain. SL patent. On room air. Heel protectors in place, legs elevated with pillows. Daisy lift but helpts with turning. On contact Isolation due to + ESBL echoli grwoing in urine.. Medicated with Tylenol x1 per c/o arm/back/legs pain. effective. Tolerating diet well, CBG 131. call light at hands reach. Confused at times, easily redirected
--- NOTE | 2019-05-27 07:21 | NUR ---
REPORT RECEIVED FROM JOSUÉ ZAIDI. PT RESTING IN BED WITH EYES CLOSED. RESPIRATIONS EVEN AND UNLABORED, BED RAILS UP. CALL LIGHT WITHIN REACH. PT ALLOWED TO REST.
--- NOTE | 2019-05-27 07:37 | NUR ---
Progress notes, dc summary faxed to Summer at [facility].
--- NOTE | 2019-05-27 08:00 | NUR ---
Contacted Summer at [facility] and faxed updated chart. She states patient can return today, the sooner the better. Discharge packet printed and sent by Megan forest fire warden to [facility].
--- NOTE | 2019-05-27 09:00 | NUR ---
Call from NEL Serrato. She is requesting update and wanting to know what she needs to do. Update given pt will return to [facility] today by EKATERINA vázquez. Staff have completed scheduled follow up appt and sent orders to [facility]. Harish states she is very busy working and has difficulty keeping up with everything. She denies further questions or needs. Encouraged to call back if she has further questions.
--- NOTE | 2019-05-27 09:21 | NUR ---
MORNING ASSESSMENT AND MEDICATION DUE. PT REPORTS 5/10 PAIN BUT DECLINES PAIN MEDICATION. ASSESSMENT DONE. EDEMA CONTINUES. BRUSES NOTED OVER BODY. DEPENDS SATURATED, LUL CARE DONE, BARRIER CREAM APPLIED. STEFFEN LIFT MOVED FOR TURNING. PT DRESSED, STEFFEN LIFT TO WHEELCHAIR. VITALS TAKEN. PT IRRITABLE, CONTINUES TO DECLINE PAIN MEDICATION. OTHER MEDICATIONS GIVEN (SEE MAR). PT ANTICIPATING DISCHARGE. NO ADDITIONAL REQUESTS OR COMPLAINTS. CALL LIGHT WITHIN REACH.
--- NOTE | 2019-05-27 10:19 | NUR ---
THIS RN TO ROOM TO CHECK ON PT. PT UP TO WHEELCHAIR. SWEETER AND SHOES APPLIED. WHEELCHAIR VAN CALLED. PT REQUESTS TO SPEAK WITH MD BEFORE DISCHARGE. MD NOTIFIED. NO ADDITIONAL REQUESTS OR COMPLAINTS AT THIS TIME. CALL LIGHT WITHIN REACH.
--- NOTE | 2019-05-27 10:21 | NUR ---
FAXED ORDERS TO [facility]. ORDER CONFIRMATION ON CHART.
--- NOTE | 2019-05-27 10:52 | NUR ---
PT CALL LIGHT ON. PT REQUESTS PAIN MEDICATION FOR 11/14 HEADACHE. SEE MAR FOR MEDICATION GIVEN. DIET 7-UP PROVIDED PER PT REQUEST. PT UPDATED ON TRANSFER. PT STATES SHE WAS ABLE TO SPEAK WITH MD. NO ADDTIIONAL REQUESTS OR COMPLAINTS AT THIS TIME. CALL LIGHT WITHIN REACH.
--- NOTE | 2019-05-27 10:56 | NUR ---
REPORT CALLED TO [facility]. REPORT GIVEN SUMMER, HOTEL CLERK WHO STATES HER QUESTIONS HAVE BEEN ANSWERED.
--- NOTE | 2019-05-27 11:15 | NUR ---
WHEELCHAIR VAN ARRIVED FOR TRANSPORTATION. PT WHEELED FROM UNIT WITH ALL BELONGINGS. NO ADDITIONAL QUESTIONS, CONCERNS, OR COMPLAINTS.
== END 2019-05-27 11:15 | disposition home or self-care (01) | DRG 872 ==
LOC: ED 23:02 → CCU 23:04 → MS 05-24 18:10
PROVIDERS: ADMIT Student in an Organized Health Care Education/Training Program
DX: A41.51 Sepsis due to Escherichia coli [E. coli] (principal); N39.0 Urinary tract infection, site not specified; Z16.12 Extended spectrum beta lactamase (ESBL) resistance; N17.9 Acute kidney failure, unspecified; I48.0 Paroxysmal atrial fibrillation; R73.03 Prediabetes; D69.6 Thrombocytopenia, unspecified; D53.9 Nutritional anemia, unspecified; E83.42 Hypomagnesemia; G89.29 Other chronic pain; E79.0 Hyperuricemia without signs of inflammatory arthritis and tophaceous disease; F39 Unspecified mood [affective] disorder; Z88.0 Allergy status to penicillin; Z88.5 Allergy status to narcotic agent; Z88.8 Allergy status to other drugs, medicaments and biological substances; Z88.2 Allergy status to sulfonamides; Z79.899 Other long term (current) drug therapy; Z79.51 Long term (current) use of inhaled steroids
CPT/HCPCS: 36415; 51701; 71045; 80048; 80053; 81001; 82607; 82746; 83036; 83605; 83735; 84100; 85025; 85049; 87077; 87088; 87186; 97162; 97166; 99285-25; J0692; J0696; J1335; J1815; J1940; J2405; J3475; J7030; J7121

== ENCOUNTER 2020-03-27 23:32 | Inpatient (IN) | payer MEDICARE, OTHER ==
[~2020-03-27] VITALS: Ht 154.9 cm; Wt 105.4 kg
[~2020-03-27 23:32] MED LIST changes: +ALDACTONE25 MG PO; +ANTI-DIARRHEAL2 M1 PO; +ANTI-ITCH28 G1 TOP; +CLEOCIN HCL300 MG PO; +FLUOCINONIDE60 ML TOP; +GUAIFENESIN-DM 15 ML PO; +KETOCONAZOLE120 ML TOP; +MINERAL OIL AU; +ROSADAN 0.75%1 EAC1 TOP; +TESSALON PERLE100 MG PO; +VITAMIN D3 PO; +WIXELA 500-501 EACH INH
--- NOTE | 2020-03-28 02:45 | NUR ---
PT ARRIVES TO FLOOR VIA STRETCHER. PT IS ALERT, ORIENTED AND TALKATIVE. VSS. IV FLUSHES WELL ALTHOUGH SOME LEAKAGE AROUND INSERTION SITE; REPOSITIONED AND RETAPED. LLE RED TO ABOVE ANKLE. RAMIRES DRAINING CLOUDY YELLOW URINE WITH SEDIMENT. ASSESSMENT COMPLETE. CALL LIGHT WITHIN REACH
--- NOTE | 2020-03-28 03:30 | NUR ---
CHECKED IN ON PT. PT SLEEPING WITH EVEN UNLABORED BREATHING. NO APPARENT SIGNS OF DISTRESS. CALL LIGHT WITHIN REACH
--- NOTE | 2020-03-28 04:59 | NUR ---
CHECKED ON PT. PT SLEEPING PEACEFULLY WITH EVEN UNLABORED BREATHING. NO APPARENT SIGNS OF DISTRESS. IVF INFUSING ORDERED. CALL LIGHT WITHIN REACH, BED ALARM ON.
--- NOTE | 2020-03-28 05:45 | NUR ---
IN ROOM FOR MORNING VITALS. PT SLEEPING BUT WAKES WITH TOUCH OF THIS NURSE. IVF WNL. VSS. URINE OUTPUT 200ML CLOUDY YELLOW URINE. CALL LIGHT WITHIN REACH. PT FALLS BACK TO SLEEP EASILY.
--- NOTE | 2020-03-28 07:11 | EKG ---
[facility] 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
--- NOTE | 2020-03-28 07:53 | NUR ---
Patient in bed resting, respirations even and non labored. Patient reports chronic shoulder pain. Changed gown at this time per pt request. Patient denies needs. Hob elevated. Personal supplies and call light withiin reach.
--- NOTE | 2020-03-28 09:08 | NUR ---
PATIENT IN BED RESTING WITH EYES CLOSED. PATIENT DID NOT WANT TO ORDER BREAKFAST AND WANTED TO SLEEP. CALL LIGHT IN REACH. NO FURTHER NEEDS AT THIS TIME.
--- NOTE | 2020-03-28 11:50 | NUR ---
SPOKE WITH PATIENT IN ROOM. PATIENT IS ORIENTED, DOES HAVE SOME MEMORY ISSUES WHEN TRYING TO ANSWER QUESTIONS. PATIENT LIVES AT [facility]. SHE STATES SHE PLANS TO RETURN THERE AT DISCHARGE. PATIENT STATES SHE DOESN'T TRANSFER ANY LONGER STANDING, FACILITY USES STEFFEN TO MOVE HER TO WHEELCHAIR. SHE STATES ALL HER NEEDS ARE MET BY FACILITY. HER ONLY ASK IS SHE WANTED A CHOCOLATE MILKSHAKE. SHE IS AWARE OF DIAGNOSIS, DR CANDELARIA HAS JUST BEEN IN TO SEE HER. [place] SHE WAS NOT SURE IF THAT WAS THE DOCTOR. SHE DENIES QUESTIONS AT THIS TIME
[2020-03-28] MEDS ORDERED: FLUOXETINE HCL40 MG PO (11:56)
[2020-03-28] MEDS ORDERED: MAXITROL EYE O3.5 GM OU (12:07)
[2020-03-28] MEDS ORDERED: SYSTANE BALANCE10 ML OU (12:09)
[2020-03-28] MEDS ORDERED: IPRATROPIUM BRO30 ML NAS (12:13)
--- NOTE | 2020-03-28 12:33 | NUR ---
MED REC COMPLETE
--- NOTE | 2020-03-28 12:46 | NUR ---
CALLED [facility], LEFT MESSAGE FOR ADMINISTRATION FOR CALLBACK TO CHECK ON PATIENTS NEEDS THERE FOR DISCHARGE.
--- NOTE | 2020-03-28 13:31 | NUR ---
Patient sitting up in bed visiting with her friend. Pt's respirations even and non labored. Patient denies needs. Personal supplies and call light within reach.
--- NOTE | 2020-03-28 14:26 | NUR ---
PATIENT IN BED RESTING WITH EYES CLOSED. CALL LIGHT IN REACH. NO FURTHER NEEDS AT THIS TIME.
--- NOTE | 2020-03-28 14:36 | NUR ---
PT ASLEEP, WILL CHECK BACK
--- NOTE | 2020-03-28 15:38 | NUR ---
REPORT RECEIVED FROM JACK MOSES. THIS NURSE TAKING OVER CARES NOW. CALL LIGHT IN REACH
--- NOTE | 2020-03-28 18:17 | NUR ---
RE ORDERED PT'S DINNER. THEY HAD BROUGHT A PUREED DIET FOR SOME REASON. VS STABLE. SHIFTED PT IN BED. GIVEN NEW TV REMOTE.
--- NOTE | 2020-03-28 19:29 | NUR ---
SHIFT REPORT FROM NURSE GAMING. PT IN BED WITH EYES CLOSED. HOB IN UPRIGHT POSITION. DENIES NEEDS AT THIS TIME. CALL LIGHT WITHIN REACH
--- NOTE | 2020-03-28 20:21 | NUR ---
CALL LIGHT ANSWERED. pt COMPLAINS THAT BUTTONS ON BED DO NOT WORK. DETACHABLE REMOTE ON BED NOT WORKING, CALL LIGHT IS WORKING, BUTTONS ON BED NEAR HEAD WORKING, HOWEVER pt UNABLE TO REACH DUE TO SHOULDER MOBILITY. pt INSTRUCTED TO USE CALL LIGHT FOR ASSISTANCE WITH RAISING AND LOWERING HEAD OF BED, VERBALIZES UNDERSTANDING. INCONTINENT OF STOOL. ATTENDS, CHUX, LINENS CHANGED WITH RN EDWARD ASSIST. RAMIRES CARE COMPLETE. GENERALIZED REDNESS PERIA AREA, BUTTOCKS, BARRIER CREAM APPLIED. pt RESPOSITIONED. PRIMARY RN REMAINS IN ROOM.
--- NOTE | 2020-03-28 20:30 | NUR ---
ASSESSMENT COMPLETE. DEPENDS FULL WITH SOFT BM. EXTENSIVE CLEANING OF PERIAREA PLUS BARRIER CREAM APPLIED D/T REDDENED PERINEAL AREA. LEFT LOWER LEG INFLAMMED AREA REMAINS WARM TO THE TOUCH AND RED, SENSITIVE TO TOUCH. PT IS ORIENTED AND ALERT, TAKING PHONE CALLS DURING CARE. VSS. IVF WNL. CALL LIGHT WITHIN REACH. PT DENIES FURTHER NEEDS AT THIS TIME.
--- NOTE | 2020-03-28 21:44 | NUR ---
CALL LIGHT ANSWERED. PT REQUESTS A WARM BLANKET WHICH IS PROVIDED. CALL LIGHT WITHIN REACH. NO FURTHER NEEDS AT THIS TIME.
--- NOTE | 2020-03-29 05:09 | NUR ---
[facility] DOWNTIME FROM [id number] CHECKED IN ON PT; SLEEPING WITH EVEN UNLABORED BREATHING. 0200 IN ROOM TO HANG IV ANTIBIOTICS, VS & I&OS. REPOSITIONED PT TO LEFT TILT 0400 CHECKED ON PT; PT SLEEPING. REMOVED PILLOW TO RETURN PT TO SUPINE POSITION
--- NOTE | 2020-03-29 06:06 | NUR ---
ASSESSMENT COMPLETE. PT AWAKES WITH MORNING VITALS. VSS, I&OS COMPLETE. PT TURNED TO LEFT TILT. IV ANTIBIOTICS HUNG. PT STATES SHE WOULD LIKE TO SLEEP SOME MORE. CALL LIGHT WITHIN REACH, BEDSIDE TABLE WITHIN REACH.
--- NOTE | 2020-03-29 07:42 | NUR ---
Patient awake resting in bed. Pt's LLE is elevated on a pillow. LLE cms is intact; redness is receding from marked borders. Patient denies needs at this time. Personal supplies and call light within reach.
--- NOTE | 2020-03-29 09:27 | NUR ---
Guillen catheter removed per provider order. Catheter tip intact. Patient tolerated well. Pt now due to void. Brief intact. Call light within reach.
--- NOTE | 2020-03-29 11:34 | NUR ---
PATIENTS ERIKA GONZALEZSIMONE CALLED AND SHE SAYS SHE IS HAVING PATIENTS WHEELCHAIR BROUGHT UP SO THAT IT IS HERE FOR TRANSPORT HOME. WE DISCUSSED HOW PATIENT IS DOING TODAY. SHE HAS NO OTHER CONCERNS OR QUESTIONS.
--- NOTE | 2020-03-29 13:58 | NUR ---
STOPPED BY TO CHECK ON PT-SHE IS ASLEEP. WILL TRY AGAIN.
--- NOTE | 2020-03-29 14:48 | NUR ---
Patient resting in bed watching TV. Patient's respirations even and non labored. LLE elevated on pillow.
--- NOTE | 2020-03-29 19:15 | NUR ---
PT LYING IN BED. SHIFT REPORT RECIEVED BY JOSUÉ. DESTINY BOARD CLEARED.
--- NOTE | 2020-03-29 20:37 | NUR ---
PT LYING IN BED. SCHEDULED MEDS GIVEN. VS STABLE. ASSESSMENT COMPLETE. IV SALINE LOCKED. REDNESS NOTED ON LEFT LOWER LEG, WARM TO TOUCH. DENIES PAIN. SOME SWELLING ON RIGHT ANKLE. CALL LIGHT IN REACH.
--- NOTE | 2020-03-29 22:24 | NUR ---
PT LYING IN BED. REPOSITIONED. BRIEFS REPLACED. INCONT X1. CALL LIGHT IN REACH.
--- NOTE | 2020-03-29 23:48 | NUR ---
PT LYING IN BED. INCONT X1. REPOSITIONED PT IN BED. NO CHANGES ON L LOWER LEG. REDNESS, WARM TO THE TOUCH AND SOME SWELLING NOTED. PT DENIES PAIN. RR WNL WITH UNLABORED BREATHING. CALL LIGHT IN REACH.
--- NOTE | 2020-03-30 02:00 | NUR ---
PT LYING IN BED. SCHEDULED MED GIVEN. EDEMA NOTED BLE +1. NO CHANGES ON L LOWER LEG. PT INCONT X1, BRIEF CHANGED. REPOSITIONED PT IN BED. CALL LIGHT IN REACH.
--- NOTE | 2020-03-30 02:31 | NUR ---
CALL LIGHT ANSWERED. IV ANTIBIOTIC COMPLETE. IV SL WNL. CALL LIGHT IN REACH. NO ADDITIONAL REQUESTS.
--- NOTE | 2020-03-30 03:38 | NUR ---
ANSWERED CALL LIGHT. 1P PIVIT TO THE COMMODE. O2 SAT 77-81% 2L NC WHILE STANDING. PT DENIES SOB. REPOSITIONED PT IN BED. 02 SAT 95% 2L NC WHILE RESTING. ASSESSMENT COMPLETE. LUNG SOUNDS CLEAR AND DIMINISH. CALL LIGHT IN REACH.
--- NOTE | 2020-03-30 05:40 | NUR ---
PT DENIES PAIN AND SOB. 02 SAT 95% RA. SLEPT HALF THE NIGHT. CALLS APPROPRIATLY. BEDREST AND STEFFEN LIFT AT BASELINE. Q2 TURN. INCONT X2. 2 GM SODIUM DIET. ELEVEATED BLE ON PILLOWS. NO CHANGES ON L LOWER LEG.
--- NOTE | 2020-03-30 05:48 | NUR ---
PT LYING IN BED. SCHEDULED MEDS GIVEN. REPOSITIONED PT IN BED. ASSESSMENT COMPLETE. I AND O'S DONE. NO CHANGES ON L LOWER LEG. BLE ELEVATED ON PILLOWS.
--- NOTE | 2020-03-30 06:18 | NUR ---
PT LYING IN BED. NEW IV ON R FOREARM INTACT AND PATENT RUNNING VANCO AT 250ML/HR. L ARM IV DC. PT INCONT X1. REPLACED BRIEFS AND REPOSITIONED PT IN BED. CALL LIGHT IN REACH.
--- NOTE | 2020-03-30 07:05 | NUR ---
Shift report from Rosemary MOSES included: Pt being tx for UTI and Left Leg Cellulitis. Pt is a karuna-lift/total care and uses call light when she needs changed, incontinent x2, attends in place. Pt is a Q2 turn schedule. Pt had an evening of poor sleep due to incontinence multiple times. Pt had a vancomycin troph this morning that came back above range at 24.1. Pt had an otherwise uneventful evening, has not reported pain or nausea though the evening shift. Pt currently in bed, eyes closed, breathing even and unlabored, table and call light within reach.
--- NOTE | 2020-03-30 08:00 | NUR ---
Assessment and med pass completed. Pt assessment completed, VSS, pt denies pain and nausea at this time. Pt was incontinent of urine and stool smear, clint care done, new attends placed. Pt repositioned in bed to her right side, pillows under left. Pt able to take all morning meds without difficulty. Pt face washed and oral care provided. Pt in bed, HOb at semi-fowlers, side rails up x4, legs elevated, table and call light within reach.
--- NOTE | 2020-03-30 10:00 | NUR ---
Pt given bed bath and turned to opposite side. Pt has DC orders so belongings were gathered, vitals taken VSS, and IV DCd WNL. Pt changed into own clothes, and hoyered to her wheelchair. Pt positioned to comfort. Pt taken to wheelchair van at 1100. Pt was alert and oriented, denies pain and dizziness upon transfer.
[2020-03-30] MEDS ORDERED: CEPHALEXIN500 MG PO (10:12)
[2020-03-30] MEDS ORDERED: BISACODYL10 MG PR (10:12)
[2020-03-30] MEDS ORDERED: MIRALAX17 GM PO (10:13)
--- NOTE | 2020-03-30 10:41 | NUR ---
CALLED [facility] AND SPOKE WITH GABE ([phone] BUILDING [address]). DISCUSSED PATIENT WILL BE DISCHARGED TODAY. WE WILL ARRANGE TAYLER MALIK, HER W/C IS ALREADY HERE TO USE. SHE ASKS THAT REPORT BE CALLED TO HER. SHE ASKS THAT ORDERS BE FAXED TO THEM AT [phone]. SHE ASKS FOR THEM TO BE NOTIFIED OF ETA. CHARGE NURSE UPDATED.
== END 2020-03-30 11:00 | disposition home or self-care (01) | DRG 871 ==
LOC: ED 23:32 → MS 03-28 01:51
PROVIDERS: ADMIT Internal Medicine; ATTEND Internal Medicine
DX: A40.9 Streptococcal sepsis, unspecified (principal); G93.41 Metabolic encephalopathy; L03.116 Cellulitis of left lower limb; N18.4 Chronic kidney disease, stage 4 (severe); Z68.41 Body mass index [BMI] 40.0-44.9, adult; Z20.828 Contact with and (suspected) exposure to other viral communicable diseases; K74.60 Unspecified cirrhosis of liver; K76.0 Fatty (change of) liver, not elsewhere classified; I89.0 Lymphedema, not elsewhere classified; I48.0 Paroxysmal atrial fibrillation; F32.9 Major depressive disorder, single episode, unspecified; G89.4 Chronic pain syndrome; D69.6 Thrombocytopenia, unspecified; H91.90 Unspecified hearing loss, unspecified ear; D63.1 Anemia in chronic kidney disease; E66.01 Morbid (severe) obesity due to excess calories; E83.42 Hypomagnesemia; E79.0 Hyperuricemia without signs of inflammatory arthritis and tophaceous disease; Z66 Do not resuscitate; Z22.39 Carrier of other specified bacterial diseases; Z79.899 Other long term (current) drug therapy; Z99.3 Dependence on wheelchair; Z88.8 Allergy status to other drugs, medicaments and biological substances; Z88.5 Allergy status to narcotic agent; Z88.0 Allergy status to penicillin; Z88.2 Allergy status to sulfonamides
CPT/HCPCS: 36415; 51702; 71045; 80048; 80053; 80202; 81001; 83036; 83605; 83735; 84484; 85025; 87077; 87088; 87186; 93005; 93010; 94760; 99285-25; C9803; G0480; J0696; J3370; J3475; J7030; J7040; J7060; U0003

== ENCOUNTER 2020-09-06 20:45 | Emergency (ER) | payer MEDICARE, OTHER ==
[~2020-09-06] VITALS: Ht 154.9 cm; Wt 104.6 kg
[~2020-09-06 20:45] MED LIST changes: +BISACODYL10 MG PR; +FLUOXETINE HCL40 MG PO; +IPRATROPIUM BRO30 ML NAS; +MAXITROL EYE O3.5 GM OU; +SYSTANE BALANCE10 ML OU
[2020-09-07] MEDS ORDERED: CEPHALEXIN500 MG PO (00:17)
--- NOTE | 2020-09-07 05:28 | EKG ---
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
== END 2020-09-07 02:02 | disposition home or self-care (01) ==
LOC: ED 20:45
DX: N39.0 Urinary tract infection, site not specified (principal); N28.9 Disorder of kidney and ureter, unspecified; G45.9 Transient cerebral ischemic attack, unspecified; D64.9 Anemia, unspecified; I48.91 Unspecified atrial fibrillation; K21.9 Gastro-esophageal reflux disease without esophagitis; M10.9 Gout, unspecified; E78.00 Pure hypercholesterolemia, unspecified; Z88.0 Allergy status to penicillin; Z88.5 Allergy status to narcotic agent; Z88.2 Allergy status to sulfonamides; Z88.1 Allergy status to other antibiotic agents; Z79.899 Other long term (current) drug therapy
CPT/HCPCS: 51702; 70450; 70496; 70498; 71045; 80053; 81001; 84484; 85025; 85610; 85730; 87077; 87088; 87186; 93005; 93010; 99285-25; J0696; J2405; J7030; Q3014; Q9967

== ENCOUNTER 2020-11-26 15:52 | Inpatient (IN) | payer MEDICARE, OTHER ==
[~2020-11-26] VITALS: Ht 154.9 cm; Wt 97.9 kg
[2020-11-27] MEDS ORDERED: STRESS FORMULA1 EAC8 PO (18:33)
[2020-11-27] MEDS ORDERED: ZOFRAN4 MG PO (18:34)
== END 2020-11-29 16:00 | disposition home or self-care (01) | DRG 640 ==
LOC: ED 15:52 → MS 18:14
PROVIDERS: ADMIT Internal Medicine; ATTEND Internal Medicine
DX: E86.0 Dehydration (principal); G93.41 Metabolic encephalopathy; U07.1 COVID-19; N39.0 Urinary tract infection, site not specified; N18.4 Chronic kidney disease, stage 4 (severe); D61.818 Other pancytopenia; Z66 Do not resuscitate; K74.60 Unspecified cirrhosis of liver; E78.5 Hyperlipidemia, unspecified; D63.1 Anemia in chronic kidney disease; M10.9 Gout, unspecified; I48.0 Paroxysmal atrial fibrillation; F41.9 Anxiety disorder, unspecified; F32.9 Major depressive disorder, single episode, unspecified; Z98.890 Other specified postprocedural states; Z85.42 Personal history of malignant neoplasm of other parts of uterus; Z90.49 Acquired absence of other specified parts of digestive tract; Z88.0 Allergy status to penicillin; Z88.5 Allergy status to narcotic agent; Z90.710 Acquired absence of both cervix and uterus; Z88.2 Allergy status to sulfonamides; Z88.8 Allergy status to other drugs, medicaments and biological substances; Z88.1 Allergy status to other antibiotic agents; Z79.899 Other long term (current) drug therapy
CPT/HCPCS: 51701; 71045; 80053; 80500; 81001; 85025; 87088; 99285-25; C9803; J1335; J7121; U0003